=== PATIENT | male | born 1970 | race Caucasian/White ===

== ENCOUNTER 2019-01-06 14:23 | Emergency (ER) | payer OTHER, MEDICAID, SELFPAY ==
[2019-01-06 14:31] VITALS: BP 173/83; PULSE 102; RESP 27; TEMP 36.8; O2SAT 91
--- NOTE | 2019-01-06 14:57 | ED.SKABFB ---
HPI - Skin/Abscess/Foreign Bdy <TEOFILO Mills - Last Filed: 01/06/19 15:26> General Chief complaint: Skin/Abscess/Foreign Body Stated complaint: infection in left leg Time Seen by Provider: 01/06/19 14:27 Source: patient Mode of arrival: Ambulatory Limitations: no limitations History of Present Illness HPI narrative: This is a 48-year-old gentleman who has history of hypertension and heart failure, smoker, who presents to ED with left lower leg aches for about a week. Patient reports last couple of days the pain has increased with redness and warmth. Patient has history of cellulitis on the same area in the past and was hospitalized with IV antibiotic medication treatment in the past. Patient denies fever, chills, nausea or vomiting, calf pain, recent weight gain, worsening breathing trouble, or chest pain. Patient denies any open skin source on affected leg. Patient is tolerating p.o. intake well. Related Data Previous Rx's Medication Instructions Recorded cephalexin [Keflex] 500 mg PO Q6H 10 Days #40 cap 01/06/19 Allergies Allergy/AdvReac Type Severity Reaction Status Date / Time No Known Drug Allergies Allergy Verified 01/06/19 14:33 Review of Systems <TEOFILO Mills - Last Filed: 01/06/19 15:26> Review of Systems Narrative: General: Denies fever, chills, fatigue, malaise, sweats. HEENT: Denies sinus pain, ear pain, sore throat, difficulty swallowing, dizziness. Respiratory: Denies dyspnea, cough, wheezing, hemoptysis, sputum. Cardiovascular: Denies chest pain, palpitations, orthopnea, edema. Gastrointestinal: Denies nausea, vomiting, abdominal pain, diarrhea, constipation, melena. : Denies dysuria, frequency, incontinence, hematuria, urinary retention. Musculoskeletal: Denies weakness, joint pain or bony pain. Skin: See HPI Neurologic: Denies weakness, headache, numbness, change in speech, confusion, seizures, incoordination. Psychiatric: No concerning psychosocial issues. 12-point review of systems is negative except for those stated above. Patient History <TEOFILO Mills Last Filed: 01/06/19 15:26> Medical History (Updated 10/29/19 @ 15:01 by TEOFILO Mills) Cellulitis (Acute) Congestive heart failure (CHF) (Acute) Hypertension (Acute) Nonadherence to medication (Acute) Social History Smoking Status: Current some day smoker alcohol intake frequency: 0-2 drinks per day Substance Use Type: does not use Exam <TEOFILO Mills - Last Filed: 01/06/19 15:26> Narrative Exam Narrative: General appearance: well developed, well nourished, in no acute distress. Head: normocephalic, atraumatic, no scalp lesions, non-tender. Eye: pupil equal, round. EOMI. Nose: nares patent. Oral: mucosa moist. Neck/Thyroid: neck supple, full range of motion, no visible masses. Heart: no clubbing, no cyanosis, no edema. Lungs: Breathing even and unlabored. No stridor. No accessory muscles used. Chest: normal shape and expansion. Abdomen: non-obese, non-distended. Neurologic: alert and oriented. 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 Psych: good eye contact, normal affect. Initial Vital Signs Initial Vital Signs: Vital Signs Temperature 98.2 F 01/06/19 14:31 Pulse Rate 102 H 01/06/19 14:31 Respiratory Rate 27 H 01/06/19 14:31 Blood Pressure 173/83 H 01/06/19 14:31 Pulse Oximetry 91 01/06/19 14:31 Skin General: erythema (Left anterior lower extremity), warm and other (Mild swelling to anterior left lower leg) Lesions: lesion noted (Small folliculitis like lesion noted in the cellulitis area) <Ankur Mcdaniel DO - Last Filed: 01/06/19 15:46> Initial Vital Signs Initial Vital Signs: Vital Signs Temperature 98.2 F 01/06/19 14:31 Pulse Rate 102 H 01/06/19 14:31 Respiratory Rate 27 H 01/06/19 14:31 Blood Pressure 173/83 H 01/06/19 14:31 Pulse Oximetry 91 01/06/19 14:31 Scores <TEOFILO Mills - Last Filed: 01/06/19 15:26> GCS [place] coma scale eye opening: Spontaneous [place] coma scale verbal response: Orientated Beatriz coma scale motor response: Obey commands [place] coma scale total score: 15 Course <TEOFILO Mills - Last Filed: 01/06/19 15:26> Vital Signs Vital signs: Vital Signs - 8 hr 01/06/19 14:31 01/06/19 15:07 Temperature 98.2 F Pulse Rate 102 H 81 Respiratory Rate 27 H 18 Blood Pressure 173/83 H Pulse Oximetry 91 91 <Ankur Mcadniel DO - Last Filed: 01/06/19 15:46> Vital Signs Vital signs: Vital Signs - 8 hr 01/06/19 14:31 01/06/19 15:07 Temperature 98.2 F Pulse Rate 102 H 81 Respiratory Rate 27 H 18 Blood Pressure 173/83 H Pulse Oximetry 91 91 MDM - Skin/Abscess/Foreign Bdy <TEOFILO Mills - Last Filed: 01/06/19 15:26> Differential Diagnosis Differential diagnosis: Likely cellulitis and other (DVT) Medical Records Attestation: I reviewed the patient's medical records. MDM Narrative Medical decision making narrative: This is a 48-year-old gentleman who presents to ED with anterior left lower extremity discomfort for 1 week which got worse in last 2 days. Patient denies constitutional symptoms. Patient denies breathing difficulty or weight gain. Patient denies calf pain. Patient denies history of diabetes. Patient has history of cellulitis and states it feels the same at the same location. Patient states last time he developed fever with cellulitis and was and up getting admitted to the hospital with IV antibiotic medication. Patient states I'm not staying in the hospital, can't afford it. Physical exam is consistent with a cellulitis. Patient will be discharged to home with oral antibiotic medication for outpatient therapy. Strict return precautions discussed with the patient and advised to follow up with his primary care physician in 2-3 days for recheck. Patient verbalized understanding and agrees with the treatment plan. Discharge Plan Departure Patient Disposition: Home Clinical Impression: Cellulitis Qualifiers: Site of cellulitis: extremity Site of cellulitis of extremity: lower extremity Laterality: left Qualified Code(s): L03.116 - Cellulitis of left lower limb Discharge Date/Time: 01/06/19 15:18 Instructions: DI for Cellulitis -- Adult Activity Restrictions/Additional Instructions: You have been diagnosed with [cellulitis on your left lower leg her physical exam]. What to do: *Take your medications as directed. Please start Keflex as soon as possible for next 10 days. This medication has been transmitted to [facility]. You should be feeling improved within 1 or 2 day you start the medication. You can take [id number] Tylenol and or Motrin for discomfort or pain. Please use warm pack on affected site 4 to 6 times a day for 20-30 minutes. Please limit excessive walking. *Follow up with your primary care provider in 2-3 days, call for an appointment. Let them know you were seen in the ED and that we asked you to be seen in follow up. *Return to ED if you have any new, worsening, or concerning symptoms, such as [chest pain, breathing difficulty, fever, weakness, increasing redness/warmth/pain on your leg, significant weight gain or any acute concerns]. Prescriptions: New cephalexin [Keflex] 500 mg capsule 500 mg PO Q6H 10 Days Qty: 40 RF: 0 Referrals: Quan Cason MD [Non-Staff] - <Ankur Mcdaniel, - Last Filed: 01/06/19 15:46> Sign Out Provider Sign Out Attestation: Dr Mcdaniel Co-Sign Statement: I was available for consultation during this patient's emergency department visit. This chart is signed by myself for administrative purposes only. I did not have direct contact with this patient during this visit. They were seen independently by the APC.
[2019-01-06 15:07] VITALS: PULSE 81; RESP 18; O2SAT 91
== END 2019-01-06 15:18 | disposition home or self-care (01) ==
LOC: ED 15:19
PROVIDERS: Emergency Provider Nurse Practitioner Family
DX: L03.116 Cellulitis of left lower limb (principal)
CPT/HCPCS: 99282; 99283

== ENCOUNTER → 2019-03-05 12:21 | Outpatient (CLI) | payer OTHER, MEDICAID, SELFPAY ==
--- NOTE | 2019-03-05 12:40 | DI.US.S_ITS ---
PROCEDURE: US PERIPH VENOUS LOW EXTREM LT INDICATIONS: LEFT LOWER CALF PHLEBITIS TECHNIQUE: Real-time imaging, as well as color and pulse Doppler interrogation, were performed of the lower extremity deep veins from the inguinal ligament to the popliteal fossa. COMPARISON: None. FINDINGS: The common femoral, femoral and popliteal veins are normally compressible, and free of intraluminal thrombus. Color and pulse Doppler demonstrate normal phasic intraluminal flow. There is normal augmentation response to distal compression maneuver. IMPRESSION: No DVT found. Dictated by: Rudy Tapia M.D. on 03/05/2019 at 12:53 Approved by: Rudy Tapia M.D. on 03/05/2019 at 12:53
== END ==
PROVIDERS: Visit Provider Physician Assistant
DX: R22.42 Localized swelling, mass and lump, left lower limb (principal)
CPT/HCPCS: 93971

== ENCOUNTER 2019-06-27 10:14 | Emergency (ER) | payer OTHER, MEDICAID, SELFPAY ==
[2019-06-27 10:16] VITALS: BP 139/103; PULSE 66; RESP 18; TEMP 36.6; O2SAT 96; BMI 54.5
--- NOTE | 2019-06-27 10:18 | ED_ITS ---
HPI - Skin/Abscess/Foreign Bdy General Chief complaint: Skin/Abscess/Foreign Body Stated complaint: poss shingles Time Seen by Provider: 06/27/19 10:18 Source: patient Mode of arrival: Ambulatory Limitations: no limitations History of Present Illness HPI narrative: This is a 49-year-old male comes emergency department with a and a half of right flank and abdominal pain and a week of rash on his right abdominal region. Patient states that he has not had fevers. He states that the area started out painful in the rash developed and he has continued to have significant discomfort. He denies any pain elsewhere. Patient states that he has not had any issues with breathing, no chest pain. No urinary issues, no issues with bowel movements, no nausea or vomiting. He does have known congestive heart failure but states he stopped his medications a month ago. I did certified personal finance counselor him to restart his medications. He states he stopped because he does not like taking pills and having to get up multiple times to urinate. Patient did have chickenpox as a child. He has not had prior episodes of shingles in the past. He denies any allergies to medications. Related Data Previous Rx's Medication Instructions Recorded hydrocodone-acetaminophen [Piedmont] 1 tab PO Q6H PRN #20 tab 06/27/19 lidocaine 1 applictn TOP TID PRN #28.35 gram 06/27/19 valacyclovir [Valtrex] 1,000 mg PO TID 7 Days #21 tab 06/27/19 Allergies Allergy/AdvReac Type Severity Reaction Status Date / Time No Known Drug Allergies Allergy Verified 06/27/19 10:23 Review of Systems Review of Systems ROS Unobtainable: All systems reviewed & are unremarkable except as noted in HPI and below Patient History Medical History Cellulitis (Acute) Congestive heart failure (CHF) (Acute) Hypertension (Acute) Nonadherence to medication (Acute) Social History Smoking Status: Current some day smoker Smoking Status: Current some day smoker alcohol intake frequency: 0-2 drinks per day Substance Use Type: does not use Exam Narrative Exam Narrative: GENERAL: Alert and oriented x three, morbidly obese male in mild distress. HEENT: Head normocephalic, atraumatic, EOMI, pupils reactive, face symmetric, moist mucous membranes NECK: Supple, full range of motion CARDIOVASCULAR: Regular rate and rhythm without murmurs, rubs or gallops. RESPIRATORY: Breath sounds equal bilaterally, no wheezes rales or rhonchi. ABDOMEN: Soft, nontender. Normoactive bowel sounds all 4 quadrants. No guarding or rebound, rigidity, no mass : No CVA tenderness EXTREMITIES: Normal range of motion, no clubbing or edema. Neurovascularly intact NEUROLOGICAL: Cranial nerves II through XII grossly intact. Moving all extremities SKIN: Warm, dry, no petechiae, patient has erythematous vesicular rash running from the posterior back just at the midline towards the right anterior abdomen just to the midline. It does not cross the midline. Does appear to be consistent with shingles in the T10 dermatome. Initial Vital Signs Initial Vital Signs: Vital Signs Temperature 97.9 F 06/27/19 10:16 Pulse Rate 66 06/27/19 10:16 Respiratory Rate 18 06/27/19 10:16 Blood Pressure 139/103 H 06/27/19 10:16 Pulse Oximetry 96 06/27/19 10:16 Course Vital Signs Vital signs: Vital Signs - 8 hr 06/27/19 10:16 Temperature 97.9 F Pulse Rate 66 Respiratory Rate 18 Blood Pressure 139/103 H Pulse Oximetry 96 MDM - Skin/Abscess/Foreign Bdy MDM Narrative Medical decision making narrative: Patient does have a rash consistent with shingles. He was started on Valtrex, given a prescription for lidocaine cream as well as hydrocodone. Patient and I discussed voiding contact with infants, women and immune compromised individuals. We discussed return precau tions and also restarting his home medications. He states he does still have them. Patient was interested in setting up primary care as his insurance has changed and his old physician Dr. Cason is no longer available. He was given referral to the Health purchasing coordinator number. Discharge Plan Departure Patient Disposition: Home Clinical Impression: Shingles Qualifiers: Herpes zoster complications: without complications Qualified Code(s): B02.9 - Zoster without complications Discharge Date/Time: 06/27/19 10:51 Instructions: DI for Shingles Activity Restrictions/Additional Instructions: Follow-up with primary care, if you do not have a primary care physician you may call [phone] to help you establish a physician. Take felt likely 1 tablet 3 times daily x1 week for your shingles. You may use lidocaine cream topically over the rash 3 times daily to help with pain. If this is not adequate you may take Piedmont 1 tablet every 6 hours as needed. This medication will constipate use of take a stool softener while taking it. Can also make you quite sleepy so do not drive, perform hazardous activities or make any major decisions while taking it. I do recommend that you restart your home medications for congestive heart failure. Return to the ER for fevers, rash that is continuing to spread, rapidly worsening pain, lightheadedness, passing out, new chest pain or shortness of breath, persistent vomiting, new weakness numbness or other new or concerning symptoms. Prescriptions: New valacyclovir [Valtrex] 1 gram tablet 1,000 mg PO TID 7 Days Qty: 21 RF: 0 hydrocodone-acetaminophen [Piedmont] 5-325 mg tablet 1 tab PO Q6H PRN (Reason: pain) Qty: 20 RF: 0 lidocaine 3 % cream 1 applictn TOP TID PRN (Reason: pain) Qty: 28.35 RF: 0
--- NOTE | 2019-06-27 10:27 | PC.NURSE ---
no new order.
== END 2019-06-27 10:51 | disposition home or self-care (01) ==
PROVIDERS: Emergency Provider Emergency Medicine
DX: B02.9 Zoster without complications (principal)
CPT/HCPCS: 99281

== ENCOUNTER 2020-04-07 15:58 | Emergency (ER) | payer OTHER, MEDICAID, SELFPAY ==
[2020-04-07] VITALS (15 sets, daily range): BP systolic 100–135; BP diastolic 54–69; PULSE 55–61; RESP 16–29; TEMP 37.1; O2SAT 93–96; BMI 55.0
--- NOTE | 2020-04-07 16:27 | DI.RAD.S_ITS ---
PROCEDURE: XR CHEST 1V INDICATIONS: chest pain TECHNIQUE: One view of the chest was acquired. COMPARISON: [facility], CT, CT ANGIO CHEST PE, 08/14/2016, 19:48. [facility], CR, XR CHEST 2VW, 08/14/2016, 18:54. FINDINGS: Surgical changes and devices: None. Lungs and pleura: Mild streaky opacity at the left lung base. No pleural effusions or pneumothorax. Mediastinum: Mediastinal contours appear normal. Heart size appears prominent. Bones and chest wall: No suspicious bony lesions. Overlying soft tissues appear unremarkable. IMPRESSION: Mild streaky opacity at the left lung base. Favor atelectasis over pneumonia or aspiration. Low lung volumes. Heart size appears prominent. Dictated by: Carlitos Bey M.D. on 04/07/2020 at 17:12 Approved by: Carlitos Bey M.D. on 04/07/2020 at 17:13
--- NOTE | 2020-04-07 16:29 | PC.NURSE ---
Pt took 2 full strength aspirin at home before arrival
[2020-04-07 16:45] LABS: Alanine Aminotransferase 22 IU/L (<50); Albumin 4.6 g/dL (3.5-5.0); Albumin Globulin Ratio 1.2 (1.0-2.8); Alkaline Phosphatase 99 U/L (38-126); Aspartate Aminotransferase 25 IU/L (17-59); BUN Creatinine Ratio 27.8 (6-22); Bilirubin Total 0.4 mg/dL (0.2-1.3); Blood Urea Nitrogen 25 mg/dL (9-20); Calcium 8.9 mg/dL (8.4-10.2); Carbon Dioxide 28 mmol/L (22-32); Chloride 103 mmol/L (98-107); Creatine Kinase 101 U/L (55-170); Estimated Glomerular Filt Rate > 60.0 mL/min (>60); Globulin 3.8 g/dL (1.7-4.1); Glucose 87 mg/dL (70-100); HEMOLYSIS < 15 (0-50); Lipase 42 U/L (23-300); Potassium 3.8 mmol/L (3.4-5.1); Sodium 138 mmol/L (137-145); Total Protein 8.4 g/dL (6.3-8.2)
[2020-04-07 16:46] LABS: Add Manual Diff / Slide Review NO; Basophils Absolute Auto 100 /uL (0-100); Basophils Percent Auto 0.6 % (0-2); Eosinophils Absolute Auto 200 /uL (0-450); Eosinophils Percent Auto 1.8 % (2-4); Hematocrit 45.4 % (41-53); Hemoglobin 14.7 g/dL (13.5-17.5); Lymphocytes Absolute Auto 2000 /uL (1100-4500); Mean Corpuscular HGB Conc 32.4 % (30-36); Mean Corpuscular Hemoglobin 28.1 PG (26-34); Mean Corpuscular Volume 86.6 fL (80-100); Monocytes Absolute Auto 700 /uL (0-900); Monocytes Percent Auto 5.6 % (3-14); Neutrophils Absolute Auto 9400 /uL (1500-7000); Platelet Count 286 X10^3/uL (150-400); Red Blood Cell Count 5.25 X10^6/uL (4.5-5.9); Red Cell Distribution Width 15.2 % (11.6-14.8); White Blood Cell Count 12.4 X10^3/uL (4.5-11.0)
[2020-04-07 16:56] LABS: Troponin I < 0.012 ng/mL (0.01-0.034)
[2020-04-07 17:00] LABS: CKMB % Relative Index 1.1 % (1.5-5.0); Creatine Kinase MB 1.16 ng/mL (<2.37)
--- NOTE | 2020-04-07 18:06 | ED_ITS ---
HPI - Chest Pain General Chief Complaint: Chest Pain Stated Complaint: chest pain, dizzy Time Seen by Provider: 04/07/20 18:03 Source: patient Mode of arrival: Ambulatory Limitations: no limitations History of Present Illness HPI narrative: 50M smoker with history of HTN presents with the chief complaint of brief episodes of L sided chest pain since 0630 this morning. He denies any obvious provocation or palliation. He denies any radiation. He states his pain is achy in quality and 3/10 at maximum intensity and currently he is pain free. He denies associated symptoms such as dizziness, weakness, diaphoresis, nor nausea or vomiting. He denies any exertional worsening of his symptoms. He denies fever, chills or cough. He denies any recent change in ability to tolerate exertion. He denies recent travel, injury, or history of clot. He denies any positional affect on his symptoms. MD complaint: chest pain Onset (ago): hour(s) Duration: intermittent Onset: during rest Pain location: left chest Severity: mild Severity scale (1-10): 3 Quality: aching Relieving factors: nothing Exacerbating factors: nothing Treatments prior to arrival chest pain: none Related Data Home Medications Medication Instructions Recorded Confirmed albuterol sulfate 1 puff INHALATION PRN PRN 04/07/20 04/07/20 aspirin 81 mg PO DAILY 04/07/20 04/07/20 bupropion HCl (smoking deter) 150 mg PO BID 04/07/20 04/07/20 fexofenadine 180 mg PO DAILY 04/07/20 04/07/20 furosemide 80 mg PO DAILY 04/07/20 04/07/20 metoprolol tartrate 25 mg PO BID 04/07/20 04/07/20 nifedipine 30 mg PO DAILY 04/07/20 04/07/20 potassium chloride 20 meq PO DAILY 04/07/20 04/07/20 valacyclovir 1,000 mg PO TID 04/07/20 04/07/20 Allergies Allergy/AdvReac Type Severity Reaction Status Date / Time No Known Drug Allergies Allergy Verified 04/07/20 16:22 Review of Systems Constitutional Constitutional: Denies chills, Denies fatigue, Denies fever(s), Denies frequent falls, Denies lethargy and Denies weakness Eyes Eyes: Denies change in vision, Denies eye discharge, Denies irritation and Denies loss of vision ENT Ears, Nose, Mouth, and Throat: Denies change in voice, Denies dizziness, Denies neck pain, Denies sore throat and Denies throat swelling Cardiovascular Cardiovascular: Reports chest pain, Denies irregular heart rhythm, Denies lightheadedness, Denies palpitations, Denies dyspnea, Denies dyspnea on exertion and Denies orthopnea Respiratory Respiratory: Denies cough, Denies dyspnea, Denies dyspnea on exertion and Denies wheezing Gastrointestinal Gastrointestinal: Denies abdominal pain, Denies change in bowel habits, Denies diarrhea, Denies nausea and Denies vomiting Musculoskeletal Musculoskeletal: Denies neck pain and Denies numbness Integumentary/Breasts Skin/Breast: Denies pruritus, Denies erythema, Denies rash and Denies wounds Neurologic Neurologic: Denies behavioral changes, Denies confusion, Denies dizziness, Denies frequent falls, Denies loss of vision, Denies numbness and Denies weakness Psychiatric Psychiatric: Denies anxiety, Denies behavioral changes, Denies confusion, Denies depression, Denies homicidal ideation and Denies suicidal ideation Endocrine Endocrine: Denies fatigue, Denies flushing and Denies palpitations Hematologic/Lymphatic Hematologic/Lymphatic: Denies easy bruising Allergic/Immunologic Allergic/Immunologic: Denies urticaria, Denies throat swelling and Denies wheezing Patient History Medical History Cellulitis Congestive heart failure (CHF) Hypertension Nonadherence to medication Social History Smoking Status: Current every day smoker Smoking Status: Current every day smoker alcohol intake frequency: 0-2 drinks per day Substance Use Type: marijuana Exam Narrative Exam Narrative: GENERAL: [50] year old patient appears stated age. Well- nourished, well-developed patient, in no obvious distress. BMI 55, Ht. 182cm, 184kg. Resting comfortably HEAD: Atraumatic. Normocephalic. EYES: Pupils equal round and reactive. Extraocular motions intact. No scleral icterus. No injection or drainage. ENT: Nose without bleeding, purulent drainage. Throat without erythema, tonsillar hypertrophy or exudate. Airway patent. NECK: Trachea midline. Non tender CARDIOVASCULAR: Regular rate and rhythm without murmurs, gallops, or rubs. No reproducible pain. RESPIRATORY: Clear to auscultation. Breath sounds equal bilaterally. No wheezes, rales, or rhonchi. No pain with inspiration or movement of torso. GASTROINTESTINAL: Abdomen soft, non-tender, nondistended. EXTREMITIES: No edema or joint tenderness. BACK: Nontender without deformity or crepitance. No flank tenderness. NEURO: AOx3. SKIN: No rash or erythema of visible areas Initial Vital Signs Initial Vital Signs: Vital Signs Temperature 98.8 F 04/07/20 16:00 Pulse Rate 60 04/07/20 16:00 Respiratory Rate 22 04/07/20 16:00 Blood Pressure 133/63 04/07/20 16:00 Pulse Oximetry 95 04/07/20 16:00 Scores HEART Score Heart Score history: Slightly Suspicious Heart Score EKG: Normal Heart Score Age: 45-64 years old Heart Score risk factors: 1-2 risk factors Heart Score troponin: < or = to normal limit Heart Score Total: 2 Course Orders Ordered: ED Orders 04/07/20 18:47 Troponin I Stat Vital Signs Vital signs: Vital Signs - 8 hr 04/07/20 18:00 04/07/20 18:30 04/07/20 18:31 Pulse Rate 58 L 61 60 Respiratory Rate 16 22 Blood Pressure 123/67 130/69 Pulse Oximetry 93 95 95 04/07/20 19:00 04/07/20 19:30 04/07/20 19:31 Pulse Rate 58 L 59 L 59 L Respiratory Rate 24 25 H 29 H Blood Pressure 128/66 135/62 Pulse Oximetry 94 96 96 MDM - Chest Pain Lab Data Result diagrams: 04/07/20 16:15 04/07/20 16:15 Labs: Lab Results 04/07/20 04/07/20 04/07/20 Range/Units 16:15 16:15 18:47 WBC 12.4 H (4.5-11.0) X10^3/uL RBC 5.25 (4.5-5.9) X10^6/uL Hgb 14.7 (13.5-17.5) g/dL Hct 45.4 (41-53) % MCV 86.6 (80-100) fL MCH 28.1 (26-34) PG MCHC 32.4 (30-36) % RDW 15.2 H (11.6-14.8) % Plt Count 286 (150-400) X10^3/uL Neut % (Auto) 76.0 H (50-75) % Lymph % (Auto) 16.0 L (25-40) % [place] % (Auto) 5.6 (3-14) % Eos % (Auto) 1.8 L (2-4) % Baso % (Auto) 0.6 (0-2) % Neut # (Auto) 9400 H (4264-0172) /uL Lymph # (Auto) 2000 (6302-1037) /uL [place] # (Auto) 700 (0-900) /uL Eos # (Auto) 200 (0-450) /uL Baso # (Auto) 100 (0-100) /uL Sodium 138 (137-145) mmol/L Potassium 3.8 (3.4-5.1) mmol/L Chloride 103 (98-107) mmol/L Carbon Dioxide 28 (22-32) mmol/L BUN 25 H (9-20) mg/dL Creatinine 0.90 (0.66-1.25) mg/dL Estimated GFR > 60.0 (>60) mL/min BUN/Creatinine Ratio 27.8 H (6-22) Glucose 87 (70-100) mg/dL Calcium 8.9 (8.4-10.2) mg/dL Total Bilirubin 0.4 (0.2-1.3) mg/dL AST 25 (17-59) IU/L ALT 22 (<50) IU/L Alkaline Phosphatase 99 (38-126) U/L Total Creatine Kinase 101 (55-170) U/L CK-MB (CK-2) 1.16 (<2.37) ng/mL CK-MB (CK-2) Rel Index 1.1 L (1.5-5.0) % Troponin I < 0.012 < 0.012 (0.01-0.034) ng/mL Total Protein 8.4 H (6.3-8.2) g/dL Albumin 4.6 (3.5-5.0) g/dL Globulin 3.8 (1.7-4.1) g/dL Albumin/Globulin Ratio 1.2 (1.0-2.8) Lipase 42 (23-300) U/L Imaging Data Chest x-ray: Radiologist's Impression: Carlitos Patel 50 M 1970 [place] [id number] [place] [id number] ReportSigned Patient: Carlitos Patel GMR#: [id number]: [id number]:[id number]/Sex: 50 / MDate of Service: 04/07/20Loc: EDAccession Number: [id number] Procedure: XR chest 1V Ordering Provider: Jannet Vora D.O. PROCEDURE: XR CHEST 1V INDICATIONS: chest pain TECHNIQUE: One view of the chest was acquired. COMPARISON: [facility], CT, CT ANGIO CHEST PE, 08/14/2016, 19:48. [facility], CR, XR CHEST 2VW, 08/14/2016, 18:54. FINDINGS: Surgical changes and devices: None. Lungs and pleura: Mild streaky opacity at the left lung base. No pleural effusions or pneumothorax. Mediastinum: Mediastinal contours appear normal. Heart size appears prominent. Bones and chest wall: No suspicious bony lesions. Overlying soft tissues appear unremarkable. IMPRESSION: Mild streaky opacity at the left lung base. Favor atelectasis over pneumonia or aspiration. Low lung volumes. Heart size appears prominent. Dictated by: Carlitos Bey M.D. on 04/07/2020 at 17:12 Approved by: Carlitos Bey M.D. on 04/07/2020 at 17:13 ECG Data Attestation: I personally reviewed and interpreted this ECG as follows: Interpretation: EKG is sinus Choco rate [57 ] and free of any signs of ischemia or ectopy. No ST segmental elevation or depression. No T wave inversions. MA 200, QRS 110. QTC 414 EKG#2 no notable change MDM Narrative Medical decision making narrative: Multiple causes of chest pain considered including ME, PE, pneumothorax, pneumonia, aortic dissection, and pleurisy. Patient reports no radiation, no diaphoresis, no provocation with exertion, and no vomiting Patient asymptomatic over duration of stay. Multiple EKGs without occlusive/ischemic abnormality. PE thought unlikely given such brief symptoms. No pleuritic component. No SOB, cough. No tachycardia or tachypnea. Findings and discharge diagnosis discussed with patient/family followed by verbalization of understanding Return precautions discussed with patient/family whom verbalize understanding. Discharge Plan Departure Patient Disposition: Home Clinical Impression: Atypical chest pain Instructions: DI for Atypical Chest Pain Activity Restrictions/Additional Instructions: *You have been diagnosed with [chest pain. Labs, EKGs, and imaging her very reassuring. No evidence of heart attack, blood clot or other severe diagnosis] *What to do: * continue to take medications as directed *Follow up with your primary care provider in 2-3 days, call for an appointment. Let them know you were seen in the Emergency Department and that we ask that you be seen in follow up *Return to ER if you should have any new, worsening or concerning symptoms, such as [increasing pain, shortness of breath, vomiting, or other bothersome symptoms ] Prescriptions: No Action nifedipine 30 mg tablet extended release 30 mg PO DAILY RF: 0 fexofenadine 180 mg tablet 180 mg PO DAILY RF: 0 valacyclovir 500 mg Tablet 1,000 mg PO TID RF: 0 furosemide 80 mg tablet 80 mg PO DAILY RF: 0 aspirin 81 mg Tablet 81 mg PO DAILY RF: 0 albuterol sulfate 90 mcg/actuation HFA aerosol inhaler 1 puff INHALATION PRN PRN (Reason: Adequate Ventilation) RF: 0 metoprolol tartrate 25 mg Tablet 25 mg PO BID RF: 0 potassium chloride 20 mEq Tablet Extended Release 20 meq PO DAILY RF: 0 bupropion HCl (smoking deter) 150 mg tablet extended release 12 hr 150 mg PO BID RF: 0 Referrals: [facility] [Outside]
[2020-04-07 19:18] LABS: Troponin I < 0.012 ng/mL (0.01-0.034)
== END 2020-04-07 19:35 | disposition home or self-care (01) ==
PROVIDERS: Emergency Medicine; Emergency Provider Emergency Medicine
DX: R07.89 Other chest pain (principal); I10 Essential (primary) hypertension; Z79.82 Long term (current) use of aspirin; I50.9 Heart failure, unspecified
CPT/HCPCS: 36415; 71045; 80053; 82550; 82553; 83690; 84484; 85025; 93005; 99283; 99284

== ENCOUNTER 2022-03-07 11:56 | Emergency (ER) | payer OTHER, MEDICAID, SELFPAY ==
[2022-03-07 12:03] VITALS: BP 186/83; PULSE 78; RESP 17; TEMP 36.1; O2SAT 92; BMI 56.2
--- NOTE | 2022-03-07 15:52 | ED_ITS ---
HPI - Ear Problem <Jennie Shipman, [facility] - Last Filed: 03/07/22 15:59> General Chief complaint: Ear Stated complaint: Ear swelling, Hearing loss Time Seen by Provider: 03/07/22 15:13 Source: patient Mode of arrival: Ambulatory History of Present Illness HPI Narrative: This is a 52-year-old gentleman who presents to the emergency department with onset of left ear canal swelling and pain for the last few days. He denies history of this in the past, states that he tried to clean his ear with a Q-tip and some dark brown which appeared like blood discharge came out. He states that he is had symptoms decreased hearing intermittently and is concerned about a foreign body or a bug or something in his ear. Denies fever or chills, denies history of diabetes, denies any tenderness behind his ear over the bone, denies rash or any other symptoms. He states that his ear hurts deep inside as well as through the canal. Denies any other discharge coming from his ear. Related Data Home Medications Medication Instructions Recorded Confirmed albuterol sulfate 90 mcg/actuation 1 puff inhalation PRN PRN Adequate 04/07/20 04/07/20 aerosol inhaler Ventilation aspirin 81 mg tablet 81 mg PO DAILY 04/07/20 04/07/20 bupropion HCl (smoking deter) 150 150 mg PO BID 04/07/20 04/07/20 mg tablet,12 hr sustained-release(smoking deterrent) fexofenadine 180 mg tablet 180 mg PO DAILY 04/07/20 04/07/20 furosemide 80 mg tablet 80 mg PO DAILY 04/07/20 04/07/20 metoprolol tartrate 25 mg tablet 25 mg PO BID 04/07/20 04/07/20 nifedipine 30 mg tablet,extended 30 mg PO DAILY 04/07/20 04/07/20 release potassium chloride 20 mEq 20 meq PO DAILY 04/07/20 04/07/20 tablet,extended release valacyclovir 500 mg tablet 1,000 mg PO TID 04/07/20 04/07/20 Previous Rx's Medication Instructions Recorded amoxicillin 875 mg-potassium 1 tab PO BID 10 days #20 tabs 03/07/22 clavulanate 125 mg tablet ofloxacin 0.3 % ear drops 10 drp EAR-LEFT DAILY 7 days #10 mL 03/07/22 Allergies Allergy/AdvReac Type Severity Reaction Status Date / Time No Known Drug Allergies Allergy Verified 03/07/22 12:03 Review of Systems <TEOFILO Sellers - Last Filed: 03/07/22 15:59> Review of Systems ROS Unobtainable: All systems reviewed & are unremarkable except as noted in HPI and below Patient History <TEOFILO Sellers - Last Filed: 03/07/22 15:59> Medical History Cellulitis Congestive heart failure (CHF) Hypertension Nonadherence to medication Social History Smoking Status: Current every day smoker Smoking Status: Current every day smoker alcohol intake frequency: holidays/special occasions only Substance Use Type: does not use Exam <TEOFILO Sellers - Last Filed: 03/07/22 15:59> Narrative Exam Narrative: Reviewed vitals signs and nursing notes. General: cooperative, comfortable, in no acute distress, well groomed HEENT: symmetrical facial expressions, moist mucous membranes, left ear canal is edematous, erythematous with flaking, sensitive on exam, needed to use the smaller otoscope cover to fit into his ear canal but still was unable to fully visualize his TM. I did not see evidence of rupture or dependent drainage. No mastoid tenderness, no anterior cervical lymphadenopathy, right ear canal without these symptoms. Skin: brisk capillary refill, without pallor or erythema Neuro: normal speech and cognition, A&O x3, ambulatory, clear speech Psych: mental status is grossly normal, congruent mood, normal affect, pleasant and cooperative Initial Vital Signs Initial Vital Signs: Vital Signs Temperature 97.0 F L 03/07/22 12:03 Pulse Rate 78 03/07/22 12:03 Respiratory Rate 17 03/07/22 12:03 Blood Pressure 186/83 H 03/07/22 12:03 Pulse Oximetry 92 03/07/22 12:03 Oxygen Delivery Method 03/07/22 12:03 <Lanie Prieto DO - Last Filed: 03/10/22 07:50> Initial Vital Signs Initial Vital Signs: Vital Signs Temperature 97.0 F L 03/07/22 12:03 Pulse Rate 78 03/07/22 12:03 Respiratory Rate 17 03/07/22 12:03 Blood Pressure 186/83 H 03/07/22 12:03 Pulse Oximetry 92 03/07/22 12:03 Oxygen Delivery Method 03/07/22 12:03 Course <TEOFILO Sellers - Last Filed: 03/07/22 15:59> Vital Signs Vital signs: Vital Signs - 8 hr 03/07/22 12:03 Temperature 97.0 F L Pulse Rate 78 Respiratory Rate 17 Blood Pressure 186/83 H Pulse Oximetry 92 Oxygen Delivery Method Room Air <Lanie Prieto DO - Last Filed: 03/10/22 07:50> Vital Signs Vital signs: Vital Signs - 8 hr 03/07/22 12:03 Temperature 97.0 F L Pulse Rate 78 Respiratory Rate 17 Blood Pressure 186/83 H Pulse Oximetry 92 Oxygen Delivery Method Room Air Medical Decision Making <TEOFILO Sellers - Last Filed: 03/07/22 15:59> MDM Narrative Medical decision making narrative: This is a 52-year-old gentleman presents to the emergency department with left ear pain for the last 2-3 days, his canal he states is tender, with flaking and he had dark brown discharge which he thought was blood on it this morning when he tried to clean his ear. On exam it appears that patient has otitis externa, flaking and edema with erythema present in the canal without evidence of ruptured TM. I was not able to fully visualize the TM even with the smallest otoscope cover. I recommend that he follow-up with ear nose and throat, he was given ofloxacin drops as well as covered for otitis media with Augmentin because it was visibly erythematous with my otoscope but I could not differentiate whether there was suppuration or bulging. Differential includes bullous myringitis, foreign body, otitis media, otitis externa, malignant otitis externa and chronic otitis externa. Patient is appropriate and amenable to discharge home. Vital signs are stable on repeat examination is unremarkable. Patient has been informed of results. Patient has been given strict return to ER precautions for any new or worsening symptoms. Patient understands to follow up closely with outpatient providers as instructed. Patient understands plan and agrees to discharge home. All questions and concerns answered at this time. Discharge Plan Departure Patient Disposition: Home Clinical Impression: Otitis externa Qualifiers: Otitis externa type: unspecified type Chronicity: acute Laterality: left Qualified Code(s): H60.502 - Unspecified acute noninfective otitis externa, left ear Instructions: Middle Ear Infection, DI for Otitis Externa Activity Restrictions/Additional Instructions: *You have been diagnosed with otitis externa which is treated with ear drops for at least 7 days. Please apply 10 drops to your left ear, may use a cotton ball to help keep in your ear after application. Please call and schedule an appointment for follow-up with ear nose and throat. Unfortunately the [place] [facility] is closed for the holiday. Please use Dr. Gracia from [facility] office ENT for follow-up. The antibiotics I have prescribed free will treat a inner ear infection but your swelling was so severe in your canal that it was difficult to see beyond that. These ear drops should help, take Tylenol and ibuprofen as tolerated. Please return if this gets worse. Was a pleasure to meet you. *What to do: *Please continue to take your regular medications as directed. [x ] New medication prescriptions sent to your pharmacy: [[facility] ] [ ] New medication written as a paper prescription [ ] No new medications given Today your blood pressure was elevated, I see that you have some medications for blood pressure, please follow-up with your primary care provider about your blood pressure and ensure that it is being treated fully. *Please follow up with your primary care provider in 2-3 days, call for an appointment. Let them know you were seen in the Emergency Department and that we asked that you be seen for follow-up. We will electronically transmit a record of today's note if your PCP is in our system *If you do not have a primary care provider please contact [phone] to establish care with one of the [facility] primary care providers. *Return to Emergency Department if you should have any new, worsening, or concerning symptoms, such as [fever greater than 101F, chills, worsening pain, persistent vomiting or other bothersome symptoms]. Prescriptions: New ofloxacin 0.3 % drops 10 drp EAR-LEFT DAILY 7 Days Qty: 10 0RF amoxicillin-pot clavulanate 875-125 mg tablet 1 tab PO BID 10 Days Qty: 20 0RF No Action nifedipine 30 mg tablet extended release 30 mg PO DAILY fexofenadine 180 mg tablet 180 mg PO DAILY valacyclovir 500 mg Tablet 1,000 mg PO TID furosemide 80 mg tablet 80 mg PO DAILY aspirin 81 mg Tablet 81 mg PO DAILY albuterol sulfate 90 mcg/actuation HFA aerosol inhaler 1 puff INHALATION PRN PRN (Reason: Adequate Ventilation) Label Comments: INHALE 2 PUFFS BY MOUTH INTO THE LUNGS EVERY 6 HOURS NEEDED FOR WHEEZING metoprolol tartrate 25 mg Tablet 25 mg PO BID potassium chloride 20 mEq Tablet Extended Release 20 meq PO DAILY bupropion HCl (smoking deter) 150 mg tablet extended release 12 hr 150 mg PO BID Referrals: Cas Gracia MD [Physician] - (The [facility] [facility] is out of the office for the holiday, please follow-up urgently as needed for worsening pain, the office he is working at is it division but this phone number should work) Stand Alone Forms: Patient Portal/API <Lanie Prieto DO - Last Filed: 03/10/22 07:50> Cosign ED Attending Letyature Attestation: I was immediately available in the department for consultation. Documentation has been reviewed. I agree with assessment and plan.
== END 2022-03-07 16:00 | disposition home or self-care (01) ==
PROVIDERS: Emergency Provider Nurse Practitioner Critical Care Medicine
DX: H60.502 Unspecified acute noninfective otitis externa, left ear (principal)
CPT/HCPCS: 99281

== ENCOUNTER 2022-04-03 15:58 | Emergency (ER) | payer OTHER, MEDICAID, SELFPAY ==
[2022-04-03] VITALS (13 sets, daily range): BP systolic 129–199; BP diastolic 65–88; PULSE 63–79; RESP 18; TEMP 36.6; O2SAT 91–98; BMI 56.2
[2022-04-03 16:33] LABS: Appearance Urine UA SL CLOUDY; Bilirubin Urine UA NEGATIVE (NEGATIVE); Color Urine UA YELLOW; Glucose Urine UA NEGATIVE (Negative); Ketones Urine UA TRACE (NEGATIVE); Leukocyte Esterase Urine UA NEGATIVE (NEGATIVE); Nitrite Urine UA NEGATIVE (Negative); Occult Blood Urine UA 3+ (Negative); Protein Urine UA 1+ (Negative)
[2022-04-03 16:41] LABS: Bacteria Urine Occasional (0-1); Culture Indicated Urine Cult Not Indicated; RBC Urine 30-100/HPF (0-5/HPF); Squamous Epithelial Cell Urine 1-5 /HPF (0-5/HPF); Transitional Epi Cells Urine 0-1/HPF (0-5/HPF); WBC Urine 1-5/HPF (0-5/HPF)
[2022-04-03 16:56] LABS: COVID19 -Nasal RAPID Negative (Negative)
[2022-04-03 17:21] LABS: Add Manual Diff / Slide Review NO; Basophils Absolute Auto 100 /uL (0-100); Basophils Percent Auto 0.9 % (0-2); Eosinophils Absolute Auto 100 /uL (0-450); Eosinophils Percent Auto 1.9 % (2-4); Hematocrit 47.9 % (41-53); Hemoglobin 15.4 g/dL (13.5-17.5); Lymphocytes Absolute Auto 1300 /uL (1100-4500); Lymphocytes Percent Auto 17.1 % (25-40); Mean Corpuscular HGB Conc 32.1 % (30-36); Mean Corpuscular Volume 87.2 fL (80-100); Monocytes Absolute Auto 600 /uL (0-900); Monocytes Percent Auto 8.4 % (3-14); Neutrophils Absolute Auto 5300 /uL (1500-7000); Neutrophils Percent Auto 71.7 % (50-75); Platelet Count 183 X10^3/uL (150-400); Red Cell Distribution Width 15.4 % (11.6-14.8); White Blood Cell Count 7.3 X10^3/uL (4.5-11.0)
[2022-04-03 17:33] LABS: Alanine Aminotransferase 22 IU/L (<50); Alkaline Phosphatase 94 U/L (38-126); Aspartate Aminotransferase 19 IU/L (17-59); BUN Creatinine Ratio 20.6 (6-22); Bilirubin Total 0.4 mg/dL (0.2-1.3); Blood Urea Nitrogen 14 mg/dL (9-20); Calcium 8.5 mg/dL (8.4-10.2); Carbon Dioxide 37 mmol/L (22-32); Chloride 98 mmol/L (98-107); Estimated Glomerular Filt Rate > 60 mL/min (>60); Globulin 3.9 g/dL (1.7-4.1); Glucose 87 mg/dL (70-100); HEMOLYSIS < 15 (0-50); Lipase 29 U/L (23-300); Sodium 141 mmol/L (137-145); Total Protein 7.9 g/dL (6.3-8.2)
--- NOTE | 2022-04-03 18:46 | DI.CT.S_ITS ---
PROCEDURE: CT KIDNEY URETER BLADDER (KUB) INDICATIONS: r/o kidney stone TECHNIQUE: Axial sections were acquired from the lung bases to the pubic symphysis. Coronal and sagittal reformats were performed. For radiation dose reduction, the following was used: automated exposure control, adjustment of mA and/or kV according to patient size. COMPARISON: CT, CT ABD PELVIS W CON, 08/14/2016, 19:48. FINDINGS: Image quality: Excellent. Lung bases: Partially visualized left basilar opacities. Heart: No significant findings. URINARY: Right Kidney: There is a hypertrophied appearance of the right kidney appearing more anterior in comparison to the left. No stones. No obstruction. Right Ureter: No hydroureter. Left Kidney: No stones or hydronephrosis. Left Ureter: No hydroureter. Bladder: Normal wall thickness. No stones. ABDOMEN: Liver: Liver is enlarged measuring 25.2 cm with steatosis. Gallbladder: Multiple gallbladder luminal stones are present. No wall thickening. Biliary ducts: Unremarkable. Pancreas: Unremarkable. Spleen: Unremarkable. Adrenal Glands: Unremarkable. Stomach and Bowel: Stomach, small bowel loops, and colon are unremarkable. Appendix is normal. Peritoneum: No abnormal intraperitoneal fluid. No free air. Ventral Wall: No hernia. Abdominal Nodes: No enlarged retroperitoneal or mesenteric lymph nodes. Vessels: Aorta and inferior vena cava are normal in size. PELVIS: Pelvic Organs: Unremarkable. Pelvic Nodes: Unremarkable. Miscellaneous: No inguinal hernias are seen. Bones: Unremarkable. IMPRESSION: No renal or ureteral calculi. No obstruction. Cholelithiasis without imaging evidence of cholecystitis. Dictated by: Brenda Quezada M.D. on 04/03/2022 at 20:01 Approved by: Brenda Quezada M.D. on 04/03/2022 at 20:04
--- NOTE | 2022-04-03 18:54 | PC.NURSE ---
Patient reports pain with urination, difficulty urinating, and it sprays everywhere when I pee. States he has not been able to assess it because, I can't see down there. I assessed him in triage. Penis does not have any redness, swelling, wounds, or drainage. Testicles are not red or swollen or tender.
--- NOTE | 2022-04-03 19:41 | ED_ITS ---
HPI - General Adult General Chief complaint: Urogenital-Male Stated complaint: possible kidney stone, cold Time Seen by Provider: 04/03/22 19:31 History of Present Illness HPI narrative: 52-year-old gentleman with a history of congestive heart failure, hypertension, obstructive sleep apnea, morbid obesity presents complaining of difficulty with voiding over the last couple of days. States that he is noticed when he does void its sprays and he has pain in his urethra close to the meatus. Never had kidney stones. Does not complain of fever, abdominal pain, flank pain and he is still able to void. He notes that his congestive heart failure issue is stable at this time. Related Data Home Medications Medication Instructions Recorded Confirmed albuterol sulfate 90 mcg/actuation 1 puff inhalation PRN PRN Adequate 04/07/20 04/03/22 aerosol inhaler Ventilation aspirin 81 mg tablet 81 mg PO DAILY 04/07/20 04/03/22 bupropion HCl (smoking deter) 150 150 mg PO BID 04/07/20 04/03/22 mg tablet,12 hr sustained-release(smoking deterrent) fexofenadine 180 mg tablet 180 mg PO DAILY 04/07/20 04/03/22 furosemide 80 mg tablet 80 mg PO DAILY 04/07/20 04/03/22 metoprolol tartrate 25 mg tablet 25 mg PO BID 04/07/20 04/03/22 nifedipine 30 mg tablet,extended 30 mg PO DAILY 04/07/20 04/03/22 release potassium chloride 20 mEq 20 meq PO DAILY 04/07/20 04/03/22 tablet,extended release valacyclovir 500 mg tablet 1,000 mg PO TID 04/07/20 04/03/22 Allergies Allergy/AdvReac Type Severity Reaction Status Date / Time No Known Drug Allergies Allergy Verified 04/03/22 16:11 Review of Systems Review of Systems Narrative: Remainder of complete review of systems is otherwise unremarkable except for that included in the HPI. Patient History Medical History (Updated 04/03/22 @ 22:24 by Johnna Lang MD) Cellulitis Congestive heart failure (CHF) Hypertension Nonadherence to medication Obstructive sleep apnea Social History Smoking Status: Current every day smoker Smoking Status: Current every day smoker alcohol intake frequency: holidays/special occasions only Substance Use Type: does not use Exam Initial Vital Signs Initial Vital Signs: Vital Signs Temperature 98 F 04/03/22 16:07 Pulse Rate 71 04/03/22 16:07 Respiratory Rate 18 04/03/22 16:07 Blood Pressure 199/87 H 04/03/22 16:07 Pulse Oximetry 93 04/03/22 16:07 Oxygen Delivery Method 04/03/22 16:07 General: Morbidly obese gentleman currently on CPAP for comfort able speak in full sentences not complaining of any pain at this time HEENT: Moist mucous membranes, normal sclera with reactive pupils, Respiratory: Lungs are clear to auscultation, no wheezing no rales no rhonchi. Full and symmetrical air movement Cardiac: Regular rate and rhythm no murmurs no bruits Abdomen: Soft, nontender, good bowel tones, no flank pain Skin: Warm and dry, no rashes Neurologic: Grossly neurologically intact with no obvious asymmetries or abnormalities Extremities: No trauma, well perfused, 1+ bilateral edema with chronic venous stasis changes Psych: Cooperative, appropriate insight and affect Course Orders Ordered: ED Orders 04/03/22 16:10 COVID19 -Nasal RAPID/Pre-Proc Stat Urinalysis and Microscopic Stat 04/03/22 17:10 Complete Blood Count AUTO DIFF Stat Comprehensive Metabolic Panel Stat Lipase Stat 04/03/22 18:45 XR pelvis 1-2V Stat 04/03/22 18:46 CT kidney ureter bladder (KUB) Stat Discontinued Medications Lidocaine HCl (Lidocaine 2% (Glydo) 6 Ml Gel) 6 ml TOP NOW ONE Stop: 04/03/22 21:45 Last Admin: 04/03/22 21:48 Dose: 6 ml Vital Signs Vital signs: Vital Signs - 8 hr 04/03/22 16:07 04/03/22 19:06 04/03/22 19:07 Temperature 98 F Pulse Rate 71 71 Respiratory Rate 18 Blood Pressure 199/87 H 146/88 H Pulse Oximetry 93 96 Oxygen Delivery Method Room Air 04/03/22 19:08 04/03/22 19:08 04/03/22 19:20 Temperature Pulse Rate 71 67 Respiratory Rate Blood Pressure 145/81 H Pulse Oximetry 95 93 Oxygen Delivery Method 04/03/22 19:20 Temperature Pulse Rate Respiratory Rate Blood Pressure 138/84 Pulse Oximetry Oxygen Delivery Method Medical Decision Making Lab Data 04/03/22 17:10 04/03/22 17:10 Labs: Lab Results 04/03/22 04/03/22 04/03/22 Range/Units 16:10 16:10 17:10 WBC 7.3 (4.5-11.0) X10^3/uL RBC 5.50 (4.5-5.9) X10^6/uL Hgb 15.4 (13.5-17.5) g/dL Hct 47.9 (41-53) % MCV 87.2 (80-100) fL MCH 28.0 (26-34) PG MCHC 32.1 (30-36) % RDW 15.4 H (11.6-14.8) % Plt Count 183 (150-400) X10^3/uL Neut % (Auto) 71.7 (50-75) % Lymph % (Auto) 17.1 L (25-40) % [place] % (Auto) 8.4 (3-14) % Eos % (Auto) 1.9 L (2-4) % Baso % (Auto) 0.9 (0-2) % Neut # (Auto) 5300 (7017-9579) /uL Lymph # (Auto) 1300 (1904-3549) /uL [place] # (Auto) 600 (0-900) /uL Eos # (Auto) 100 (0-450) /uL Baso # (Auto) 100 (0-100) /uL Sodium (137-145) mmol/L Potassium (3.4-5.1) mmol/L Chloride (98-107) mmol/L Carbon Dioxide (22-32) mmol/L BUN (9-20) mg/dL Creatinine (0.66-1.25) mg/dL Estimated GFR (>60) mL/min BUN/Creatinine Ratio (6-22) Glucose (70-100) mg/dL Calcium (8.4-10.2) mg/dL Total Bilirubin (0.2-1.3) mg/dL AST (17-59) IU/L ALT (<50) IU/L Alkaline Phosphatase (38-126) U/L Total Protein (6.3-8.2) g/dL Albumin (3.5-5.0) g/dL Globulin (1.7-4.1) g/dL Albumin/Globulin Ratio (1.0-2.8) Lipase (23-300) U/L Urine Color Yellow Urine Appearance Sl cloudy Urine pH 7.0 (4.5-8.0) Ur Specific [place] 1.020 (1.000-1.035) Urine Protein 1+ H (Negative) Urine Glucose (UA) Negative (Negative) g/dL Urine Ketones Trace H (NEGATIVE) Urine Occult Blood 3+ H (Negative) Urine Nitrate Negative (Negative) Urine Bilirubin Negative (NEGATIVE) Urine Urobilinogen 1.0 (0.2) E.U./dL Ur Leukocyte Esterase Negative (NEGATIVE) Urine RBC 30-100/hpf H (0-5/HPF) Urine WBC 1-5/hpf (0-5/HPF) Ur Squamous Epith Cells 1-5 /hpf (0-5/HPF) Ur Transition Epith Cell 0-1/hpf (0-5/HPF) Urine Bacteria Occasional (0-1) (None) Ur Culture Indicated? Cult not indicated SARS-CoV-2 (PCR) Negative (Negative) 04/03/22 Range/Units 17:10 WBC (4.5-11.0) X10^3/uL RBC (4.5-5.9) X10^6/uL Hgb (13.5-17.5) g/dL Hct (41-53) % MCV (80-100) fL MCH (26-34) PG MCHC (30-36) % RDW (11.6-14.8) % Plt Count (150-400) X10^3/uL Neut % (Auto) (50-75) % Lymph % (Auto) (25-40) % [place] % (Auto) (3-14) % Eos % (Auto) (2-4) % Baso % (Auto) (0-2) % Neut # (Auto) (4115-8362) /uL Lymph # (Auto) (9574-3752) /uL [place] # (Auto) (0-900) /uL Eos # (Auto) (0-450) /uL Baso # (Auto) (0-100) /uL Sodium 141 (137-145) mmol/L Potassium 4.0 (3.4-5.1) mmol/L Chloride 98 (98-107) mmol/L Carbon Dioxide 37 H (22-32) mmol/L BUN 14 (9-20) mg/dL Creatinine 0.68 (0.66-1.25) mg/dL Estimated GFR > 60 (>60) mL/min BUN/Creatinine Ratio 20.6 (6-22) Glucose 87 (70-100) mg/dL Calcium 8.5 (8.4-10.2) mg/dL Total Bilirubin 0.4 (0.2-1.3) mg/dL AST 19 (17-59) IU/L ALT 22 (<50) IU/L Alkaline Phosphatase 94 (38-126) U/L Total Protein 7.9 (6.3-8.2) g/dL Albumin 4.0 (3.5-5.0) g/dL Globulin 3.9 (1.7-4.1) g/dL Albumin/Globulin Ratio 1.0 (1.0-2.8) Lipase 29 (23-300) U/L Urine Color Urine Appearance Urine pH (4.5-8.0) Ur Specific [place] (1.000-1.035) Urine Protein (Negative) Urine Glucose (UA) (Negative) g/dL Urine Ketones (NEGATIVE) Urine Occult Blood (Negative) Urine Nitrate (Negative) Urine Bilirubin (NEGATIVE) Urine Urobilinogen (0.2) E.U./dL Ur Leukocyte Esterase (NEGATIVE) Urine RBC (0-5/HPF) Urine WBC (0-5/HPF) Ur Squamous Epith Cells (0-5/HPF) Ur Transition Epith Cell (0-5/HPF) Urine Bacteria (None) Ur Culture Indicated? SARS-CoV-2 (PCR) (Negative) Imaging Data CT scan - abdomen/pelvis: Radiologist's Impression: FINDINGS:? Image quality:? Excellent.? ? Lung bases:? Partially visualized left basilar opacities. Heart:? No significant findings. ? URINARY: Right Kidney:? There is a hypertrophied appearance of the right kidney appearing more anterior in comparison to the left.? No stones.? No obstruction.? Right Ureter:? No hydroureter.? ? Left Kidney: ? No stones or hydronephrosis. Left Ureter:? No hydroureter.? ? Bladder:? Normal wall thickness. No stones. ? ? ? ABDOMEN: Liver:? Liver is enlarged measuring 25.2 cm with steatosis. Gallbladder:? Multiple gallbladder luminal stones are present.? No wall thickening.? Biliary ducts:? Unremarkable.? ? Pancreas:? Unremarkable.? ? Spleen:? Unremarkable.? ? Adrenal Glands:? Unremarkable.? ? ? Stomach and Bowel:? Stomach, small bowel loops, and colon are unremarkable.? Appendix is normal. Peritoneum:? No abnormal intraperitoneal fluid.? No free air.? ? Ventral Wall: ? No hernia.? Abdominal Nodes:? No enlarged retroperitoneal or mesenteric lymph nodes.? Vessels:? Aorta and inferior vena cava are normal in size.? ? PELVIS: Pelvic Organs:? Unremarkable.? ? Pelvic Nodes: Unremarkable. Miscellaneous: No inguinal hernias are seen. ? ? ? Bones:? Unremarkable. ? IMPRESSION:? ? No renal or ureteral calculi.? No obstruction. ? Cholelithiasis without imaging evidence of cholecystitis. ? ? ? Dictated by: Brenda Quezada M.D. on 04/03/2022 at 20:01 ? ? MDM Narrative Medical decision making narrative: CC: Difficulty voiding over the last couple of days with ?spraying? with voids and pain in the distal portion of his penis Complicating co-morbidities: Morbid obesity, congestive heart failure, sleep apnea, hypertension Corroborating data: Data collected from: patient, Differential considered: Urethral abnormality, urethral stone, bladder stone, kidney stone, urinary tract infection Exam documented above, pertinent findings include: No specific abnormalities are appreciated on exam Lab Test results independently reviewed as above. Pertinent findings: CBC is unremarkable Chemistries are unremarkable with normal kidney function Urine with red blood cells trace ketones no white blood cells or nitrates Independently reviewed EKG as above Imaging studies independently reviewed: CT scan does not show any significant abnormalities or obvious stones in the urinary system including to the tip of the urethra Treatments: Eldridge catheter is placed. There is a small irritation at the urethral meatus that is the source of his pain. It may be that there some swelling there that is causing the ?sprain? that he is complaining of. Eldridge catheter passed without difficulty, bladder is drained and the catheter is removed. Explained finding to the patient. And at this point he is safe for discharge home. This minor irritation should heal spontaneously and does not look like anything that needs further treatment or workup. Re-evaluations:945pm patient is updated on CT scan findings and lack of obvious obstructing abnormality. Informed him of plan to try Eldridge catheter placement to see if it helps resolve problems he agrees to this. Will re-evaluate after the catheter has been placed, bladder Eldridge drained, catheter is removed and see how he is doing Discussion: 52-year-old gentleman with irritation to the urethral meatus that I believe is the source of his urine difficulties. Due to his body habitus he is not able to see the tip of his penis to assess this himself. There is no evidence infection, kidney stone, acute kidney injury and no indication for additional workup or hospitalization at this time. The small irritation should heal spontaneously and does not look like it is herpetic lesion, bacterial concern or yeast abnormality. Disposition: see below, along with detailed discharge instructions that have b dren reviewed with patient as well as indications for ED re-evaluation and additional outpatient follow up Discharge Plan Departure Patient Disposition: Home Clinical Impression: Irritation of urethral meatus Activity Restrictions/Additional Instructions: Thank you for coming in today Your workup does not show acute infection, kidney infection, bladder infection. You have no kidney stones and there does not appear to be any acute obstruction in your penis. At the very tip of your penis there is a small irritation and I suspect that the bit of swelling from that is what is causing the spring that you are noticing when you are voiding. This area should heal spontaneously. It does not look like a bacterial infection, a herpetic lesion or a yeast infection. Additional antibiotics and treatment are not required at this point. If the area continues to bother you or your having additional problems, I would encourage you follow-up with your primary care physician If you find that you are getting worse or develop any new symptoms, please feel free to return to the emergency department for further evaluation. Prescriptions: No Action nifedipine 30 mg tablet extended release 30 mg PO DAILY fexofenadine 180 mg tablet 180 mg PO DAILY valacyclovir 500 mg Tablet 1,000 mg PO TID furosemide 80 mg tablet 80 mg PO DAILY aspirin 81 mg Tablet 81 mg PO DAILY albuterol sulfate 90 mcg/actuation HFA aerosol inhaler 1 puff INHALATION PRN PRN (Reason: Adequate Ventilation) Label Comments: INHALE 2 PUFFS BY MOUTH INTO THE LUNGS EVERY 6 HOURS NEEDED FOR WHEEZING metoprolol tartrate 25 mg Tablet 25 mg PO BID potassium chloride 20 mEq Tablet Extended Release 20 meq PO DAILY bupropion HCl (smoking deter) 150 mg tablet extended release 12 hr 150 mg PO BID Stand Alone Forms: Patient Portal/API
[2022-04-03] MEDS: LIDOCAINE 2% (GLYDO) 6 ML GEL TOP (21:48)
--- NOTE | 2022-04-03 22:23 | PC.NURSE ---
hadley cath inserted with aseptic technique,c/o being sore on the tip of his penis.He had lindsay small whitelesion on upper tip of his penis,DR Lang notified.
== END 2022-04-03 23:05 | disposition home or self-care (01) ==
PROVIDERS: Emergency Medicine; Emergency Provider Emergency Medicine
DX: N36.8 Other specified disorders of urethra (principal); Z20.822 Contact with and (suspected) exposure to COVID-19
CPT/HCPCS: 36415; 72170; 74176; 80053; 81001; 83690; 85025; 87635; 99284; C9803

== ENCOUNTER 2022-06-27 11:44 | Emergency (ER) | payer OTHER, MEDICAID, SELFPAY ==
[2022-06-27 11:54] VITALS: BP 179/93; PULSE 70; RESP 20; TEMP 36.8; O2SAT 93; BMI 56.5
--- NOTE | 2022-06-27 17:05 | DI.US.S_ITS ---
PROCEDURE: [facility]REM [facility] INDICATIONS: Pain and swelling TECHNIQUE: Real-time imaging, as well as color and pulse Doppler interrogation, were performed of the lower extremity deep veins from the inguinal ligament to the popliteal fossa. COMPARISON: [facility], , [facility] VENOUS LOW EXTREM LT, 03/05/2019, 12:34. FINDINGS: The common femoral, femoral and popliteal veins are normally compressible, and free of intraluminal thrombus. Color and pulse Doppler demonstrate normal phasic intraluminal flow. There is normal augmentation response to distal compression maneuver. IMPRESSION: Negative for deep venous thrombosis. Dictated by: Bud Mantilla M.D. on 06/27/2022 at 17:13 Approved by: Bud Mantilla M.D. on 06/27/2022 at 17:13
--- NOTE | 2022-06-27 17:08 | ED.EXTPRO ---
HPI - Extremity Problem <Duran Newell MD - Last Filed: 07/15/22 22:40> General Chief complaint: Extremity Problem,Nontraumatic Stated complaint: cellulitis on lt leg Time Seen by Provider: 06/27/22 17:00 Source: patient Mode of arrival: Ambulatory History of Present Illness HPI Narrative: Patient here for complaints left distal anterior leg redness pain and swelling. This is the same spot he was treated with Keflex for cellulitis in January 06, 2019. Patient was seen here. He states antibiotics had resolved the problem. Denies any injury recently to this area. Denies any history of diabetes. No history of blood clots in legs or lungs. Thigh to toes exposed Related Data Home Medications Medication Instructions Recorded Confirmed albuterol sulfate 90 mcg/actuation 1 puff inhalation PRN PRN Adequate 04/07/20 04/03/22 aerosol inhaler Ventilation aspirin 81 mg tablet 81 mg PO DAILY 04/07/20 04/03/22 bupropion HCl (smoking deter) 150 150 mg PO BID 04/07/20 04/03/22 mg tablet,12 hr sustained-release(smoking deterrent) fexofenadine 180 mg tablet 180 mg PO DAILY 04/07/20 04/03/22 furosemide 80 mg tablet 80 mg PO DAILY 04/07/20 04/03/22 metoprolol tartrate 25 mg tablet 25 mg PO BID 04/07/20 04/03/22 nifedipine 30 mg tablet,extended 30 mg PO DAILY 04/07/20 04/03/22 release potassium chloride 20 mEq 20 meq PO DAILY 04/07/20 04/03/22 tablet,extended release valacyclovir 500 mg tablet 1,000 mg PO TID 04/07/20 04/03/22 Previous Rx's Medication Instructions Recorded doxycycline monohydrate 100 mg 100 mg PO BID #20 caps 06/27/22 capsule Allergies Allergy/AdvReac Type Severity Reaction Status Date / Time No Known Drug Allergies Allergy Verified 04/03/22 16:11 Review of Systems <Duran Newell MD - Last Filed: 07/15/22 22:40> Review of Systems Narrative: GENERAL: negative chills, fatigue, malaise, fever, sweats. HEENT: negative sinus pain, ear pain, sore throat RESPIRATORY: negative dyspnea, cough CARDIOVASCULAR: negative chest pain, palpitations GASTROINTESTINAL: negative nausea, vomiting, abdominal pain : negative dysuria, frequency, hematuria MUSCULOSKELETAL: Positive muscle or bony pain SKIN: Positive skin color change NEUROLOGIC: negative weakness, numbness ROS Unobtainable: All systems reviewed & are unremarkable except as noted in HPI and below Patient History <Duran Newell MD - Last Filed: 07/15/22 22:40> Medical History (Updated 07/12/22 @ 00:01 by ) Cellulitis Congestive heart failure (CHF) Hypertension Nonadherence to medication Obstructive sleep apnea Social History Smoking Status: Current every day smoker Smoking Status: Current every day smoker tobacco type: cigarettes alcohol intake frequency: holidays/special occasions only Substance Use Type: does not use Exam <Duran Newell MD - Last Filed: 07/15/22 22:40> Narrative Exam Narrative: GENERAL: in no distress, not toxic not dyspneic HEAD: Normocephalic. EYES: Pupils equal round ENT: Mucous membranes moist. NECK: Trachea midline. CARDIOVASCULAR: Regular rate and rhythm without murmurs RESPIRATORY: Clear to auscultation. Breath sounds equal bilaterally. No wheezes, rales, or rhonchi. EXTREMITIES: No gross deformities. Examination left lower extremity. Foot is warm soft and pink with strong pedal pulse and brisk cap refills. Light touch intact to foot and toes. There is distal 3rd anterior leg tenderness and darkening of the skin. No fluctuance. No vesicles. It is erythematous on the borders of the darkened skin. Calf is nontender. Skin is edematous around the cellulitic area. NEURO: AOx4. SKIN: Warm and dry PSYCH: Not anxious, is cooperative Initial Vital Signs Initial Vital Signs: Vital Signs Temperature 98.3 F 06/27/22 11:54 Pulse Rate 70 06/27/22 11:54 Respiratory Rate 20 06/27/22 11:54 Blood Pressure 179/93 H 06/27/22 11:54 Pulse Oximetry 93 06/27/22 11:54 Oxygen Delivery Method Room Air 06/27/22 11:54 <Lanie Prieto DO - Last Filed: 06/28/22 01:26> Initial Vital Signs Initial Vital Signs: Vital Signs Temperature 98.3 F 06/27/22 11:54 Pulse Rate 70 06/27/22 11:54 Respiratory Rate 20 06/27/22 11:54 Blood Pressure 179/93 H 06/27/22 11:54 Pulse Oximetry 93 06/27/22 11:54 Oxygen Delivery Method Room Air 06/27/22 11:54 Course <Duran Newell MD - Last Filed: 07/15/22 22:40> Orders Ordered: Discontinued Medications Doxycycline Hyclate (Doxycycline Hyclate 100 Mg Tablet) 100 mg PO NOW ONE Stop: 06/27/22 18:44 Last Admin: 06/27/22 18:49 Dose: 100 mg Documented By: AT Vital Signs Vital signs: Vital Signs - 8 hr 06/27/22 18:52 Pulse Rate 89 Respiratory Rate 20 Blood Pressure 138/65 Pulse Oximetry 92 Oxygen Delivery Method Room Air <Lanie Prieto DO - Last Filed: 06/28/22 01:26> Orders Ordered: Discontinued Medications Doxycycline Hyclate (Doxycycline Hyclate 100 Mg Tablet) 100 mg PO NOW ONE Stop: 06/27/22 18:44 Last Admin: 06/27/22 18:49 Dose: 100 mg Documented By: AT Vital Signs Vital signs: Vital Signs - 8 hr 06/27/22 18:52 Pulse Rate 89 Respiratory Rate 20 Blood Pressure 138/65 Pulse Oximetry 92 Oxygen Delivery Method Room Air MDM - Extremity (Nontraumatic) <Duran Newell MD - Last Filed: 07/15/22 22:40> Lab Data 06/27/22 17:17 06/27/22 17:17 Labs: Lab Results 06/27/22 06/27/22 Range/Units 17:17 17:17 WBC 8.7 (4.5-11.0) X10^3/uL RBC 5.77 (4.5-5.9) X10^6/uL Hgb 15.6 (13.5-17.5) g/dL Hct 48.4 (41-53) % MCV 84.0 (80-100) fL MCH 27.0 (26-34) PG MCHC 32.2 (30-36) % RDW 16.0 H (11.6-14.8) % Plt Count 204 (150-400) X10^3/uL Neut % (Auto) 77.4 H (50-75) % Lymph % (Auto) 13.9 L (25-40) % Nuckolls % (Auto) 5.4 (3-14) % Eos % (Auto) 2.1 (2-4) % Baso % (Auto) 1.2 (0-2) % Neut # (Auto) 6700 (1311-9757) /uL Lymph # (Auto) 1200 (8322-2118) /uL Nuckolls # (Auto) 500 (0-900) /uL Eos # (Auto) 200 (0-450) /uL Baso # (Auto) 100 (0-100) /uL Sodium 139 (137-145) mmol/L Potassium 3.9 (3.4-5.1) mmol/L Chloride 99 (98-107) mmol/L Carbon Dioxide 34 H (22-32) mmol/L BUN 17 (9-20) mg/dL Creatinine 0.61 L (0.66-1.25) mg/dL Estimated GFR > 60 (>60) mL/min BUN/Creatinine Ratio 27.9 H (6-22) Glucose 97 (70-100) mg/dL Calcium 9.1 (8.4-10.2) mg/dL Total Bilirubin 0.6 (0.2-1.3) mg/dL AST 28 (17-59) IU/L ALT 27 (<50) IU/L Alkaline Phosphatase 98 (38-126) U/L Total Protein 8.1 (6.3-8.2) g/dL Albumin 4.4 (3.5-5.0) g/dL Globulin 3.7 (1.7-4.1) g/dL Albumin/Globulin Ratio 1.2 (1.0-2.8) Imaging Data US - DVT: Radiologist's Impression: PROCEDURE: US [facility] VENOUS LOW EXTREM LT INDICATIONS: Pain and swelling TECHNIQUE: Real-time imaging, as well as color and pulse Doppler interrogation, were performed of the lower extremity deep veins from the inguinal ligament to the popliteal fossa. COMPARISON: [facility], , US [facility] VENOUS LOW EXTREM LT, 03/05/2019, 12:34. FINDINGS: The common femoral, femoral and popliteal veins are normally compressible, and free of intraluminal thrombus. Color and pulse Doppler demonstrate normal phasic intraluminal flow. There is normal augmentation response to distal compression maneuver. IMPRESSION: Negative for deep venous thrombosis. Dictated by: Bud Mantilla M.D. on 06/27/2022 at 17:13 Approved by: Bud Mantilla M.D. on 06/27/2022 at 17:13 [facility] Narrative Medical decision making narrative: After history and exam CBC CMP venous Doppler of the leg doxycycline ordered [facility] CC: Left leg pain and swelling Complicating co-morbidities: History of cellulitis in the same leg and area Data collected from: Patient Medical records reviewed: ER visit here for left leg cellulitis January 06 2019 Differential considered: Includes but not limited to DVT SVT cellulitis Exam documented above, pertinent findings include: Tender erythematous distal left leg Lab Test results independently reviewed as above. Pertinent findings: WBC 8.7 hemoglobin 15 sodium 139 potassium 3.9 BUN 17 creatinine 0.61 GFR greater than 60 Imaging studies independently reviewed: Ultrasound left leg no DVT Consultations: None indicated Treatments: Doxycycline Re-evaluations: Reviewed results with patient. Pain is controlled. Agrees with treatment plan. Return precautions reviewed. He does have a family doctor to follow up with. Not toxic at discharge Discussion: Appropriate for discharge home. Laboratory studies imaging exam are reassuring. Patient does have a family doctor. Return precautions reviewed with him. Antibiotics were started here tonight. Prescription sent to his pharmacy. Diagnosis: Left leg cellulitis <Lanie Prieto DO - Last Filed: 06/28/22 01:26> Lab Data Labs: Lab Results 06/27/22 06/27/22 Range/Units 17:17 17:17 WBC 8.7 (4.5-11.0) X10^3/uL RBC 5.77 (4.5-5.9) X10^6/uL Hgb 15.6 (13.5-17.5) g/dL Hct 48.4 (41-53) % MCV 84.0 (80-100) fL MCH 27.0 (26-34) PG MCHC 32.2 (30-36) % RDW 16.0 H (11.6-14.8) % Plt Count 204 (150-400) X10^3/uL Neut % (Auto) 77.4 H (50-75) % Lymph % (Auto) 13.9 L (25-40) % Nuckolls % (Auto) 5.4 (3-14) % Eos % (Auto) 2.1 (2-4) % Baso % (Auto) 1.2 (0-2) % Neut # (Auto) 6700 (5266-8950) /uL Lymph # (Auto) 1200 (2970-9041) /uL Nuckolls # (Auto) 500 (0-900) /uL Eos # (Auto) 200 (0-450) /uL Baso # (Auto) 100 (0-100) /uL Sodium 139 (137-145) mmol/L Potassium 3.9 (3.4-5.1) mmol/L Chloride 99 (98-107) mmol/L Carbon Dioxide 34 H (22-32) mmol/L BUN 17 (9-20) mg/dL Creatinine 0.61 L (0.66-1.25) mg/dL Estimated GFR > 60 (>60) mL/min BUN/Creatinine Ratio 27.9 H (6-22) Glucose 97 (70-100) mg/dL Calcium 9.1 (8.4-10.2) mg/dL Total Bilirubin 0.6 (0.2-1.3) mg/dL AST 28 (17-59) IU/L ALT 27 (<50) IU/L Alkaline Phosphatase 98 (38-126) U/L Total Protein 8.1 (6.3-8.2) g/dL Albumin 4.4 (3.5-5.0) g/dL Globulin 3.7 (1.7-4.1) g/dL Albumin/Globulin Ratio 1.2 (1.0-2.8) MDM Narrative Medical decision making narrative: After history and exam CBC CMP venous Doppler of the leg doxycycline ordered [facility] CC: Left leg pain and swelling Complicating co-morbidities: History of cellulitis in the same leg and area Data collected from: Patient Medical records reviewed: ER visit here for left leg cellulitis January 06 2019 Differential considered: Includes but not limited to DVT SVT cellulitis Exam documented above, pertinent findings include: Tender erythematous distal left leg Lab Test results independently reviewed as above. Pertinent findings: WBC 8.7 hemoglobin 15 sodium 139 potassium 3.9 BUN 17 creatinine 0.61 GFR greater than 60 Imaging studies independently reviewed: Ultrasound left leg no DVT Consultations: None indicated Treatments: Doxycycline Re-evaluations: Reviewed results with patient. Pain is controlled. Agrees with treatment plan. Return precautions reviewed. He does have a family doctor to follow up with. Not toxic at discharge Discussion: Appropriate for discharge home. Laboratory studies imaging exam are reassuring. Patient does have a family doctor. Return precautions reviewed with him. Antibiotics were started here tonight. Prescription sent to his pharmacy. Diagnosis: Left leg cellulitis [place]-patient never seen or evaluated by myself patient was dispositioned by Dr. Newell Discharge Plan Departure Patient Disposition: Home Clinical Impression: Cellulitis Instructions: DI for Cellulitis -- Adult Activity Restrictions/Additional Instructions: See family doctor within a week for re-evaluation of your skin infection of the leg/cellulitis. Continue antibiotic tomorrow. Prescription has been sent to your pharmacy to [facility]. Return if worse if any questions or concerns. Today's laboratory studies and ultrasound are reassuring. No blood clot in your leg. Prescriptions: New doxycycline monohydrate 100 mg capsule 100 mg PO BID Qty: 20 0RF No Action nifedipine 30 mg tablet extended release 30 mg PO DAILY fexofenadine 180 mg tablet 180 mg PO DAILY valacyclovir 500 mg Tablet 1,000 mg PO TID furosemide 80 mg tablet 80 mg PO DAILY aspirin 81 mg Tablet 81 mg PO DAILY albuterol sulfate 90 mcg/actuation HFA aerosol inhaler 1 puff INHALATION PRN PRN (Reason: Adequate Ventilation) Patient Comments: INHALE 2 PUFFS BY MOUTH INTO THE LUNGS EVERY 6 HOURS NEEDED FOR WHEEZING metoprolol tartrate 25 mg Tablet 25 mg PO BID potassium chloride 20 mEq Tablet Extended Release 20 meq PO DAILY bupropion HCl (smoking deter) 150 mg tablet extended release 12 hr 150 mg PO BID Referrals: Miscellaneous,Doctor, [Primary Care Provider] - Stand Alone Forms: Patient Portal/API
[2022-06-27 17:53] LABS: Add Manual Diff / Slide Review NO; Hematocrit 48.4 % (41-53); Hemoglobin 15.6 g/dL (13.5-17.5); Mean Corpuscular HGB Conc 32.2 % (30-36); Platelet Count 204 X10^3/uL (150-400); Red Blood Cell Count 5.77 X10^6/uL (4.5-5.9); White Blood Cell Count 8.7 X10^3/uL (4.5-11.0)
[2022-06-27 17:54] LABS: Basophils Absolute Auto 100 /uL (0-100); Basophils Percent Auto 1.2 % (0-2); Eosinophils Absolute Auto 200 /uL (0-450); Eosinophils Percent Auto 2.1 % (2-4); Lymphocytes Absolute Auto 1200 /uL (1100-4500); Lymphocytes Percent Auto 13.9 % (25-40); Monocytes Absolute Auto 500 /uL (0-900); Monocytes Percent Auto 5.4 % (3-14); Neutrophils Absolute Auto 6700 /uL (1500-7000); Neutrophils Percent Auto 77.4 % (50-75)
[2022-06-27 18:20] LABS: Alanine Aminotransferase 27 IU/L (<50); Albumin 4.4 g/dL (3.5-5.0); Albumin Globulin Ratio 1.2 (1.0-2.8); Alkaline Phosphatase 98 U/L (38-126); Aspartate Aminotransferase 28 IU/L (17-59); BUN Creatinine Ratio 27.9 (6-22); Bilirubin Total 0.6 mg/dL (0.2-1.3); Blood Urea Nitrogen 17 mg/dL (9-20); Calcium 9.1 mg/dL (8.4-10.2); Carbon Dioxide 34 mmol/L (22-32); Chloride 99 mmol/L (98-107); Estimated Glomerular Filt Rate > 60 mL/min (>60); Globulin 3.7 g/dL (1.7-4.1); Glucose 97 mg/dL (70-100); HEMOLYSIS < 15 (0-50); Potassium 3.9 mmol/L (3.4-5.1); Sodium 139 mmol/L (137-145); Total Protein 8.1 g/dL (6.3-8.2)
[2022-06-27] MEDS: DOXYCYCLINE HYCLATE 100 MG TABLET PO (18:49)
[2022-06-27 18:52] VITALS: BP 138/65; PULSE 89; RESP 20; O2SAT 92
== END 2022-06-27 18:47 | disposition home or self-care (01) ==
PROVIDERS: Emergency Provider Emergency Medicine
DX: L03.116 Cellulitis of left lower limb (principal); Z79.899 Other long term (current) drug therapy
CPT/HCPCS: 36415; 80053; 85025; 93971; 99284

== ENCOUNTER 2023-02-17 16:27 | Emergency (ER) | payer OTHER, MEDICAID, SELFPAY ==
[2023-02-17] VITALS (19 sets, daily range): BP systolic 109–156; BP diastolic 52–90; PULSE 62–73; RESP 10–35; TEMP 37.1; O2SAT 89–94; BMI 55.7
--- NOTE | 2023-02-17 17:02 | DI.RAD.S_ITS ---
PROCEDURE: XR CHEST 1V INDICATIONS: Shortness of breath TECHNIQUE: One view of the chest was acquired. COMPARISON: None. FINDINGS: Exam imaging is degraded by patient body habitus. Surgical changes and devices: None. Lungs and pleura: Question opacity within the retrocardiac left lower lung. No pleural effusions or pneumothorax. Mediastinum: Cardiomegaly. Bones and chest wall: No suspicious bony lesions. Overlying soft tissues appear unremarkable. IMPRESSION: Left lower lobe opacity is indeterminate may reflect infection, pleural effusion, or soft tissue summation artifact. Dictated by: Duran Amado M.D. on 02/17/2023 at 16:23 Approved by: Duran Amado M.D. on 02/17/2023 at 16:25
--- NOTE | 2023-02-17 17:12 | PC.NURSE ---
Carbon monoxide is 14. RT and provider at bedside.
[2023-02-17] MEDS: methylPREDNISolone 125 MG/2 ML VIAL IV (17:23)
[2023-02-17] MEDS: FUROSEMIDE 40 MG/4 ML VIAL IV (17:23)
[2023-02-17 17:29] LABS: Add Manual Diff / Slide Review NO; Basophils Absolute Auto 0 /uL (0-100); Basophils Percent Auto 0.1 % (0-2); Eosinophils Absolute Auto 100 /uL (0-450); Eosinophils Percent Auto 0.7 % (2-4); Hematocrit 39.6 % (41-53); Hemoglobin 12.4 g/dL (13.5-17.5); Lymphocytes Absolute Auto 800 /uL (1100-4500); Lymphocytes Percent Auto 9.9 % (25-40); Mean Corpuscular HGB Conc 31.2 % (30-36); Mean Corpuscular Volume 89.8 fL (80-100); Monocytes Absolute Auto 600 /uL (0-900); Monocytes Percent Auto 7.1 % (3-14); Neutrophils Absolute Auto 6700 /uL (1500-7000); Neutrophils Percent Auto 82.2 % (50-75); Platelet Count 203 X10^3/uL (150-400); Red Blood Cell Count 4.42 X10^6/uL (4.5-5.9); Red Cell Distribution Width 17.1 % (11.6-14.8); White Blood Cell Count 8.2 X10^3/uL (4.5-11.0)
[2023-02-17 17:36] LABS: INR 1.2 (0.9-1.3); Prothrombin Time 13.4 SECONDS (9.4-12.5)
[2023-02-17 17:39] LABS: Lactate (Lactic Acid) 1.8 mmol/L (0.7-2.1); PTT Partial Thromboplastin Tim 32 SECONDS (25.1-36.5)
[2023-02-17 17:41] LABS: Alanine Aminotransferase 21 IU/L (<50); Albumin 3.8 g/dL (3.5-5.0); Alkaline Phosphatase 79 U/L (38-126); Aspartate Aminotransferase 19 IU/L (17-59); BUN Creatinine Ratio 36.5 (6-22); Bilirubin Total 0.6 mg/dL (0.2-1.3); Blood Urea Nitrogen 27 mg/dL (9-20); Calcium 9.3 mg/dL (8.4-10.2); Chloride 88 mmol/L (98-107); Creatine Kinase 23 U/L (55-170); Estimated Glomerular Filt Rate > 60 mL/min (>60); Globulin 3.8 g/dL (1.7-4.1); Glucose 116 mg/dL (70-100); HEMOLYSIS < 15 (0-50); Lipase 23 U/L (23-300); Potassium 4.2 mmol/L (3.4-5.1); Sodium 136 mmol/L (137-145); Total Protein 7.6 g/dL (6.3-8.2)
[2023-02-17 17:51] LABS: Carbon Dioxide 45 mmol/L (22-32); NT-proBNP (BNP-Adult 18+) 781 pg/mL (<125); Troponin I 0.016 ng/mL (0.01-0.034)
--- NOTE | 2023-02-17 18:25 | ED.SOB ---
HPI - SOB/Dyspnea General Chief Complaint: Shortness of Breath/Dyspnea Stated Complaint: SOB Time Seen by Provider: 02/17/23 17:03 Source: patient and EMS Mode of arrival: EMS History of Present Illness HPI Narrative: 53-year-old man with a history of CHF, presenting with shortness of breath. He is on home oxygen, says he was feeling fatigued earlier today and believes that his oxygen was not working. He called EMS they found him with oxygen saturations in the 70s. Even on supplemental oxygen his saturations were only down in the 80s. He said he had 2 hours of chest pain unless yesterday. He has a nonproductive cough he is not been having fevers. He says that he is feeling better, when I encountered the patient he is on BiPAP. The patient tells me he is had [address] [facility] he thinks it was about 3 years ago. His medications include furosemide 80 mg daily. He is not noted any weight gain. When I encountered him, the patient states that he would not wish to be intubated again although he is not definitive about that. Related Data Home Medications Medication Instructions Recorded Confirmed albuterol sulfate 90 mcg/actuation 1 puff inhalation PRN PRN Adequate 04/07/20 04/03/22 aerosol inhaler Ventilation aspirin 81 mg tablet 81 mg PO DAILY 04/07/20 04/03/22 bupropion HCl (smoking deter) 150 150 mg PO BID 04/07/20 04/03/22 mg tablet,12 hr sustained-release(smoking deterrent) fexofenadine 180 mg tablet 180 mg PO DAILY 04/07/20 04/03/22 furosemide 80 mg tablet 80 mg PO DAILY 04/07/20 04/03/22 metoprolol tartrate 25 mg tablet 25 mg PO BID 04/07/20 04/03/22 nifedipine 30 mg tablet,extended 30 mg PO DAILY 04/07/20 04/03/22 release potassium chloride 20 mEq 20 meq PO DAILY 04/07/20 04/03/22 tablet,extended release valacyclovir 500 mg tablet 1,000 mg PO TID 04/07/20 04/03/22 Previous Rx's Medication Instructions Recorded doxycycline monohydrate 100 mg 100 mg PO BID #20 caps 06/27/22 capsule Allergies Allergy/AdvReac Type Severity Reaction Status Date / Time No Known Drug Allergies Allergy Verified 04/03/22 16:11 Patient History Medical History (Updated 07/12/22 @ 00:01 by ) Obstructive sleep apnea Cellulitis Nonadherence to medication Hypertension Congestive heart failure (CHF) Social History Smoking Status: Current every day smoker Smoking Status: Current every day smoker tobacco type: cigarettes alcohol intake frequency: holidays/special occasions only Substance Use Type: does not use Exam Initial Vital Signs Initial Vital Signs: Vital Signs Temperature 98.8 F 02/17/23 16:54 Pulse Rate 72 02/17/23 16:54 Respiratory Rate 26 H 02/17/23 16:54 Blood Pressure 148/82 H 02/17/23 16:54 Pulse Oximetry 92 02/17/23 16:54 Oxygen Delivery Method Non -Rebreather 02/17/23 16:54 Oxygen Flow Rate 15 02/17/23 16:54 Const General: disheveled and lethargic Other: Morbidly obese [facility] Head: normocephalic and atraumatic Neck Neck: normal visual inspection, supple and other (Unable to evaluate for jugular venous distention secondary to body habitus) Resp Effort & Inspection: labored Auscultation: other (Decreased breath sounds throughout, rhonchi throughout no wheezing) Cardio Rate: regular rate Rhythm: regular rhythm Heart Sounds: no gallops and no murmurs Skin General: no rashes or lesions noted Neuro General: patient awake, patient oriented x3 and moves all extremities Extrem Other: No lower extremity swelling noted Procedures Intubation Time of Intubation: 00:32 Time out performed: Yes sedative: Ketamine paralytic: Rocuronium Laryngoscope: fiber optic video scope ET Tube Size: 7.5 Tube Secured Depth (cm): 23 Tube Placement Confirmation: Visualized tube passing through cords, Equal breath sounds bilaterally, No breath sounds over epigastrium, Confirmation by capnometry and Chest Xray [facility] Procedure Name of Procedure: critical care Additional Comments: 1 hour of critical care time, exclusive of procedures for respiratory failure requiring noinvasive positive pressure ventilation and then endotracheal intubation. Patient required multiple re-evaluations, discussions with consultants including admitting physician, reassessment and decision to transfer, efforts in finding a transfer reassessment and intubation. Course Course Course Narrative: At 7:45 p.m., I re-evaluated the patient. He still appears to be comfortable on BiPAP. He declined repeat arterial blood gas. He confirms that he would not want to be intubated even if it meant he would not survive this illness, he also confirms that he does not wish to be resuscitated in the event of a cardiac arrest. Patient was advised that he is COVID positive. Patient did not get vaccinated. He is refusing remdesivir. Agrees with plan to hospitalize and provide supportive care and is agreeable to receiving dexamethasone Decision to Admit Date: 02/17/23 Decision to Admit time: 19:49 Orders Ordered: ED Orders 02/17/23 17:02 Consult to TOWER CRANE OPERATOR - Skein Straightener Stat XR chest 1V Stat Measure peak expiratory flow ONCE RT Consult Eval and Treat NOW 02/17/23 17:10 Complete Blood Count AUTO DIFF Stat Comprehensive Metabolic Panel Stat Lactate (Lactic Acid) Stat Lipase Stat NT-proBNP (BNP-Adult 18+) Stat PTT Partial Thromboplastin Buck Stat Prothrombin Time INR Stat Troponin & CK Cardiac Panel Stat 02/17/23 17:20 Respiratory Panel (Film Array) Stat 02/17/23 17:30 BiPAP Ventilatory Support RT PROTOCOL 02/17/23 17:53 ABG [Arterial Blood Gas] Stat 02/17/23 19:16 ABG [Arterial Blood Gas] Stat 02/17/23 20:08 Venous Blood Gas Stat 02/17/23 21:00 NT-proBNP (BNP-Adult 18+) DAILY 02/17/23 23:14 Venous Blood Gas Stat Discontinued Medications Acetaminophen (Acetaminophen 325 Mg Tablet) 650 mg PO Q6H PRN PRN Reason: Fever/Mild Pain (1-3) Albuterol (Albuterol 2.5 Mg/3 Ml Neb (Adult)) 2.5 mg INH [id number] PRN PRN Reason: Shortness Of Breath Albuterol/Ipratropium (Albuterol/Ipratropium 3 Ml Ampul) 3 ml INH [id number] KASH Chlorhexidine Gluconate (Chlorhexidine Gluconate 15 Ml Cup) 15 ml PO Q6HR [facility] Dexamethasone (Dexamethasone 10 Mg/Ml Vial) 6 mg IV NOW ONE Stop: 02/17/23 19:50 Last Admin: 02/17/23 20:07 Dose: 6 mg Documented By: Dexamethasone (Dexamethasone 10 Mg/Ml Vial) 6 mg IV DAILY [facility] Enoxaparin Sodium (Enoxaparin 40 Mg/0.4 Ml Syringe) 40 mg SUBCUT DAILY [facility] Famotidine (Famotidine 20 Mg/2 Ml Vial) 20 mg IV BID [facility] Last Admin: 02/17/23 21:13 Dose: Not Given Documented By: SB Furosemide (Furosemide 40 Mg/4 Ml Vial) 40 mg IV NOW ONE Stop: 02/17/23 17:16 Last Admin: 02/17/23 17:23 Dose: 40 mg Documented By: SB Furosemide (Furosemide 40 Mg Tablet) 80 mg PO DAILY [facility] Naloxone HCl 2 mg/ Sodium (Chloride) 500 mls @ 62.5 mls/hr IV TITRATE [facility]; Protocol Last Admin: 02/17/23 19:06 Dose: Not Given Documented By: SB Doxycycline Hyclate 100 mg/ (Sodium Chloride) 100 mls @ 100 mls/hr IV Q12H [facility] Last Admin: 02/17/23 21:13 Dose: Not Given Documented By: SB Ceftriaxone Sodium 1,000 mg/ (Sodium Chloride) 100 mls @ 200 mls/hr IV Q24H [facility] Last Admin: 02/17/23 21:14 Dose: Not Given Documented By: SB Methylprednisolone (Methylprednisolone 125 Mg/2 Ml Vial) 125 mg IV NOW ONE Stop: 02/17/23 17:04 Last Admin: 02/17/23 17:23 Dose: 125 mg Documented By: SB Metoprolol Tartrate (Metoprolol Ir 25 Mg Tablet) 25 mg PO BID [facility] Last Admin: 02/17/23 21:13 Dose: Not Given Documented By: SB Morphine Sulfate (Morphine 4 Mg/Ml Inj) 3 mg IV Q2HR [facility] Last Admin: 02/17/23 21:12 Dose: Not Given Documented By: SB Naloxone HCl (Naloxone 0.4 Mg/Ml Vial) 0.2 mg IV Q2MIN PRN PRN Reason: Opiate Reversal Non-Formulary Medication (Bupropion Hcl (Smoking Deter)) 150 mg PO BID [facility] Last Admin: 02/17/23 21:14 Dose: Not Given Documented By: SB Sucralfate (Sucralfate 1 Gm Tablet) 1 gm PO Q6HR [facility] Reevaluation(s) Reevaluation #1: At 22:45 pt asks me to return to room. has a friend Leisa who lives in [place] who he would want to be surrogate decision maker. NOW WANTS FULL TREATMENT/FULL CODE. Still does not want remdesivir. Reevaluation #2: at midnight, pt reports he is getting tired. Poor air movement, repeat gas 7.23/co2 102. Significant decline, pt will need to be intubated. He is advised of this and is in agreement. Consultations Consultation #1: D/W Dr Hernandez, accepts admission, aware pt is DNR/DNI Consultation #2: D/W Dr Neely zipper setter lockstitch [facility], accepts transfer awaiting bed Vital Signs Vital signs: Vital Signs - 8 hr 02/17/23 16:54 02/17/23 16:54 02/17/23 17:00 Temperature 98.8 F Pulse Rate 72 73 Respiratory Rate 26 H Blood Pressure 148/82 H 156/64 H Pulse Oximetry 92 91 Oxygen Delivery Method Non -Rebreather Oxygen Flow Rate 15 Fraction of Inspired Oxygen 02/17/23 17:00 02/17/23 17:30 02/17/23 17:30 Temperature Pulse Rate 71 66 Respiratory Rate Blood Pressure 156/90 H Pulse Oximetry 89 L 92 Oxygen Delivery Method Oxygen Flow Rate Fraction of Inspired Oxygen 02/17/23 17:57 02/17/23 18:00 02/17/23 18:07 Temperature Pulse Rate 65 Respiratory Rate Blood Pressure 156/90 H 110/59 L Pulse Oximetry 92 Oxygen Delivery Method Oxygen Flow Rate Fraction of Inspired Oxygen 60 02/17/23 18:07 02/17/23 18:30 02/17/23 18:31 Temperature Pulse Rate 65 67 Respiratory Rate 31 H Blood Pressure 111/52 L Pulse Oximetry 90 L 91 Oxygen Delivery Method Oxygen Flow Rate Fraction of Inspired Oxygen 02/17/23 18:31 02/17/23 19:00 02/17/23 19:00 Temperature Pulse Rate 65 63 Respiratory Rate 35 H 30 H Blood Pressure 129/62 Pulse Oximetry 92 91 Oxygen Delivery Method BiPAP Oxygen Flow Rate Fraction of Inspired Oxygen 02/17/23 19:30 02/17/23 19:30 02/17/23 20:00 Temperature Pulse Rate 62 63 Respiratory Rate 23 23 Blood Pressure 141/64 H Pulse Oximetry 92 90 L Oxygen Delivery Method Oxygen Flow Rate Fraction of Inspired Oxygen 02/17/23 20:01 02/17/23 20:01 02/17/23 20:30 Temperature Pulse Rate 62 62 Respiratory Rate 24 24 Blood Pressure 133/54 L Pulse Oximetry 90 L Oxygen Delivery Method Oxygen Flow Rate Fraction of Inspired Oxygen 02/17/23 21:00 02/17/23 21:00 02/17/23 21:30 Temperature Pulse Rate 65 Respiratory Rate Blood Pressure 127/58 L 117/69 Pulse Oximetry 93 Oxygen Delivery Method BiPAP Oxygen Flow Rate Fraction of Inspired Oxygen 02/17/23 21:30 02/17/23 22:00 02/17/23 22:30 Temperature Pulse Rate 63 64 65 Respiratory Rate 23 30 H Blood Pressure Pulse Oximetry 93 94 93 Oxygen Delivery Method BiPAP BiPAP BiPAP Oxygen Flow Rate Fraction of Inspired Oxygen 02/17/23 22:30 Temperature Pulse Rate Respiratory Rate Blood Pressure 109/62 Pulse Oximetry Oxygen Delivery Method Oxygen Flow Rate Fraction of Inspired Oxygen MDM - SOB/Dyspnea Differential Diagnosis Differential diagnosis: Likely acute exacerbation of chronic obstructive airways disease, congestive heart failure, community acquired pneumonia, pulmonary embolism and other (COVID-19 infection) Condition is:: Improved Discussed with:: Accepting physician at [facility] Medical Records Medical records narrative: Medical records at this facility are limited, I did review most recent ED notes Lab Data Lab results narrative: Blood gas shows pH of 7 III 0 8 with a pCO2 of 89.8 PO2 is 68. Bicarb is 45.1. Currently appears to have some decompensation based on acidosis. Troponin is normal, proBNP is elevated. 02/17/23 17:10 02/17/23 17:10 Labs: Lab Results 02/17/23 02/17/23 02/17/23 Range/Units 17:10 17:20 17:53 WBC 8.2 (4.5-11.0) X10^3/uL RBC 4.42 L (4.5-5.9) X10^6/uL Hgb 12.4 L (13.5-17.5) g/dL Hct 39.6 L (41-53) % MCV 89.8 (80-100) fL MCH 28.0 (26-34) PG MCHC 31.2 (30-36) % RDW 17.1 H (11.6-14.8) % Plt Count 203 (150-400) X10^3/uL Neut % (Auto) 82.2 H (50-75) % Lymph % (Auto) 9.9 L (25-40) % [place] % (Auto) 7.1 (3-14) % Eos % (Auto) 0.7 L (2-4) % Baso % (Auto) 0.1 (0-2) % Neut # (Auto) 6700 (4680-6315) /uL Lymph # (Auto) 800 L (8736-2968) /uL [place] # (Auto) 600 (0-900) /uL Eos # (Auto) 100 (0-450) /uL Baso # (Auto) 0 (0-100) /uL PT 13.4 H (9.4-12.5) SECONDS INR 1.2 (0.9-1.3) APTT 32 (25.1-36.5) SECONDS ABG Sample Site Right brachial ABG pH 7.30 L (7.35-7.45) ABG pCO2 89.8 H* (35-45) mmHg ABG pO2 68 L (80-100) mmHg ABG HCO3 45 H (23-27) mmol/L ABG Total CO2 48 H (23-27) mmol/L ABG O2 Saturation 90 L (95-100) % ABG Base Excess 19.0 H (-2-3) mmol/L VBG pH (7.33-7.43) VBG pCO2 (45-50) mmHg VBG pO2 (35-45) mmHg VBG HCO3 (24-28) mmol/L VBG Total CO2 (24-29) mmol/L VBG O2 Saturation (70-75) % VBG Base Excess (0-4) mmol/L FiO2 60 Sodium 136 L (137-145) mmol/L Potassium 4.2 (3.4-5.1) mmol/L Chloride 88 L (98-107) mmol/L Carbon Dioxide 45 H* (22-32) mmol/L BUN 27 H (9-20) mg/dL Creatinine 0.74 (0.66-1.25) mg/dL Estimated GFR > 60 (>60) mL/min BUN/Creatinine Ratio 36.5 H (6-22) Glucose 116 H (70-100) mg/dL Lactate 1.8 (0.7-2.1) mmol/L Calcium 9.3 (8.4-10.2) mg/dL Total Bilirubin 0.6 (0.2-1.3) mg/dL AST 19 (17-59) IU/L ALT 21 (<50) IU/L Alkaline Phosphatase 79 (38-126) U/L Total Creatine Kinase 23 L (55-170) U/L Troponin I 0.016 (0.01-0.034) ng/mL NT-Pro-B Natriuret Pep 781 H (<125) pg/mL Total Protein 7.6 (6.3-8.2) g/dL Albumin 3.8 (3.5-5.0) g/dL Globulin 3.8 (1.7-4.1) g/dL Albumin/Globulin Ratio 1.0 (1.0-2.8) Lipase 23 (23-300) U/L Chlamy pneumoniae PCR Not detected (Not Detect) Adenovirus (PCR) Not detected (Not Detect) B.parapertussis DNA PCR Not detected (Not Detecte) Coronavirus OC43 (PCR) Not detected (Not Detect) Coronavirus HKU1 (PCR) Not detected (Not Detect) Coronavirus 229E (PCR) Not detected (Not Detect) SARS-CoV-2 (PCR) Detected H (Not Detecte) Coronavirus NL63 (PCR) Not detected (Not Detect) Human Metapneumovir PCR Not detected (Not Detect) Influenza Type A (PCR) Not detected (Not Detect) Influenza Type B (PCR) Not detected (Not Detect) M. pneumoniae (PCR) Not detected (Not Detect) Parainfluenza 1 (PCR) Not detected (Not Detect) Parainfluenza 2 (PCR) Not detected (Not Detect) Parainfluenza 3 (PCR) Not detected (Not Detect) Parainfluenza 4 (PCR) Not detected (Not Detect) RSV (PCR) Not detected (Not Detect) Entero/Rhino (PCR) Not detected (Not Detect) 02/17/23 Range/Units 20:08 WBC (4.5-11.0) X10^3/uL RBC (4.5-5.9) X10^6/uL Hgb (13.5-17.5) g/dL Hct (41-53) % MCV (80-100) fL MCH (26-34) PG MCHC (30-36) % RDW (11.6-14.8) % Plt Count (150-400) X10^3/uL Neut % (Auto) (50-75) % Lymph % (Auto) (25-40) % [place] % (Auto) (3-14) % Eos % (Auto) (2-4) % Baso % (Auto) (0-2) % Neut # (Auto) (3269-4576) /uL Lymph # (Auto) (3956-5051) /uL [place] # (Auto) (0-900) /uL Eos # (Auto) (0-450) /uL Baso # (Auto) (0-100) /uL PT (9.4-12.5) SECONDS INR (0.9-1.3) APTT (25.1-36.5) SECONDS ABG Sample Site ABG pH (7.35-7.45) ABG pCO2 (35-45) mmHg ABG pO2 (80-100) mmHg ABG HCO3 (23-27) mmol/L ABG Total CO2 (23-27) mmol/L ABG O2 Saturation (95-100) % ABG Base Excess (-2-3) mmol/L VBG pH 7.34 (7.33-7.43) VBG pCO2 80.7 H (45-50) mmHg VBG pO2 31 L (35-45) mmHg VBG HCO3 44 H (24-28) mmol/L VBG Total CO2 46 H (24-29) mmol/L VBG O2 Saturation 51 L (70-75) % VBG Base Excess 18.0 H (0-4) mmol/L FiO2 55 Sodium (137-145) mmol/L Potassium (3.4-5.1) mmol/L Chloride (98-107) mmol/L Carbon Dioxide (22-32) mmol/L BUN (9-20) mg/dL Creatinine (0.66-1.25) mg/dL Estimated GFR (>60) mL/min BUN/Creatinine Ratio (6-22) Glucose (70-100) mg/dL Lactate (0.7-2.1) mmol/L Calcium (8.4-10.2) mg/dL Total Bilirubin (0.2-1.3) mg/dL AST (17-59) IU/L ALT (<50) IU/L Alkaline Phosphatase (38-126) U/L Total Creatine Kinase (55-170) U/L Troponin I (0.01-0.034) ng/mL NT-Pro-B Natriuret Pep (<125) pg/mL Total Protein (6.3-8.2) g/dL Albumin (3.5-5.0) g/dL Globulin (1.7-4.1) g/dL Albumin/Globulin Ratio (1.0-2.8) Lipase (23-300) U/L Chlamy pneumoniae PCR (Not Detect) Adenovirus (PCR) (Not Detect) B.parapertussis DNA PCR (Not Detecte) Coronavirus OC43 (PCR) (Not Detect) Coronavirus HKU1 (PCR) (Not Detect) Coronavirus 229E (PCR) (Not Detect) SARS-CoV-2 (PCR) (Not Detecte) Coronavirus NL63 (PCR) (Not Detect) Human Metapneumovir PCR (Not Detect) Influenza Type A (PCR) (Not Detect) Influenza Type B (PCR) (Not Detect) M. pneumoniae (PCR) (Not Detect) Parainfluenza 1 (PCR) (Not Detect) Parainfluenza 2 (PCR) (Not Detect) Parainfluenza 3 (PCR) (Not Detect) Parainfluenza 4 (PCR) (Not Detect) RSV (PCR) (Not Detect) Entero/Rhino (PCR) (Not Detect) ABG Data ABG results: Initial blood gases showed mild acidosis with a pH of 7.3 and a pCO2 in the 80s. This was slightly improved on 2nd blood gas on the 3rd blood gas patient had worsening of his acidosis and elevation and his pCO2. Following intubation, PA shows improving at 7.296 with a pCO2 of 81 both of these are improved compared with the last gas prior to intubation Imaging Data Chest x-ray: My Impression: Initial chest x-ray shows cardiomegaly, left basilar densities versus effusion Radiologist's Impression: Endotracheal tube in place with the distal tip projecting approximately 4.2 cm above the christopher. Nasogastric tube in place and appears appropriately position. Otherwise, stable cardiopulmonary evaluation with persistent left basilar airspace opacities. ECG Data Interpretation: EKG shows sinus rhythm at [address] segment changes poor R-wave progression no old EKG for comparison Treatment and disposition Social Determinants of Health that impact treatment or disposition: Active smoking Code Status and discussions:: Multiple code status discussions were held with the patient, he initially stated he wished to be DNI/DNR, later changed his mind to full treatment with intubation if necessary MDM Narrative Medical decision making narrative: 53-year-old man with a history of CHF presenting with hypercapnic and hypoxic respiratory failure. Did not have a fever or leukocytosis, not hypotensive I do not think the patient is septic. He is unvaccinated and tested positive for COVID. He refused remdesivir. He was given dexamethasone, he did not show an adequate response to noninvasive positive pressure ventilation and because of worsening hypercapnia and acidosis he was intubated. Following intubation there is a downward trend in PH and CO2. He is transferred to [facility] where they have Infectious Disease and pulmonology available. Critical Care Time Critical Care Time Critical Care Time: Yes (60 minutes) Total Critical Care Time: 60 Attestation: Patient required critical care for respiratory failure Discharge Plan Departure Prescriptions: No Action nifedipine 30 mg tablet extended release 30 mg PO DAILY fexofenadine 180 mg tablet 180 mg PO DAILY valacyclovir 500 mg Tablet 1,000 mg PO TID furosemide 80 mg tablet 80 mg PO DAILY aspirin 81 mg Tablet 81 mg PO DAILY albuterol sulfate 90 mcg/actuation HFA aerosol inhaler 1 puff INHALATION PRN PRN (Reason: Adequate Ventilation) Patient Comments: INHALE 2 PUFFS BY MOUTH INTO THE LUNGS EVERY 6 HOURS NEEDED FOR WHEEZING metoprolol tartrate 25 mg Tablet 25 mg PO BID potassium chloride 20 mEq Tablet Extended Release 20 meq PO DAILY bupropion HCl (smoking deter) 150 mg tablet extended release 12 hr 150 mg PO BID doxycycline monohydrate 100 mg capsule 100 mg PO BID Qty: 20 0RF Referrals: Miscellaneous,Doctor, [Primary Care Provider] -
[2023-02-17 18:26] LABS: Adenovirus Not Detected (Not Detect); B. parapertussis Not Detected (Not Detecte); Bordetella pertussis Not Detected (Not Detect); Chlamydophila pneumoniae Not Detected (Not Detect); Coronavirus 229E Not Detected (Not Detect); Coronavirus HKU1 Not Detected (Not Detect); Coronavirus NL 63 Not Detected (Not Detect); Coronavirus OC43 Not Detected (Not Detect); Human Metapneumovirus Not Detected (Not Detect); Human Rhinovirus/Enterovirus Not Detected (Not Detect); Influenza A Not Detected (Not Detect); Influenza B Not Detected (Not Detect); Mycoplasma pneumoniae Not Detected (Not Detect); Parainfluenza Virus 1 Not Detected (Not Detect); Parainfluenza Virus 2 Not Detected (Not Detect); Parainfluenza Virus 3 Not Detected (Not Detect); Parainfluenza Virus 4 Not Detected (Not Detect); Respiratory Syncytial Virus Not Detected (Not Detect); SARS- CoV-2 Detected (Not Detecte)
[2023-02-17 19:00] LABS: Blood Gas Collection Site Right Brachial; Fractionated Inspired Oxygen 60; HCO3 ABG 45 mmol/L (23-27); Oxygen Saturation ABG 90 % (95-100); PO2 ABG 68 mmHg (80-100); TCO2 ABG 48 mmol/L (23-27)
[2023-02-17 19:02] LABS: PCO2 ABG 89.8 mmHg (35-45)
--- NOTE | 2023-02-17 19:26 | RT ---
Pt refused HASEEB JACOBSON aware.
[2023-02-17] MEDS: DEXAMETHASONE 10 MG/ML VIAL 6 MG IV (20:07)
[2023-02-17 20:18] LABS: Fractionated Inspired Oxygen 55; HCO3 VBG 44 mmol/L (24-28); Oxygen Saturation VBG 51 % (70-75); PCO2 VBG 80.7 mmHg (45-50); PO2 VBG 31 mmHg (35-45); Total CO2 VBG 46 mmol/L (24-29); pH VBG 7.34 (7.33-7.43)
--- NOTE | 2023-02-17 21:35 | PC.NURSE ---
This RN checks on patient. Audible expiratory wheezing heard. Pt reports history of asthma and using an inhaler at home. Pt oxygen saturation at 93% at RA. RT called. Provider to be made aware.
[2023-02-17 23:53] LABS: pH VBG 7.24 (7.33-7.43)
[2023-02-17 23:54] LABS: HCO3 VBG 43 mmol/L (24-28); PCO2 VBG > 60.0 mmHg (45-50); PO2 VBG 52 mmHg (35-45)
[2023-02-17 23:55] LABS: Fractionated Inspired Oxygen 55; Oxygen Saturation VBG 76 % (70-75); Total CO2 VBG 46 mmol/L (24-29)
--- NOTE | 2023-02-17 23:59 | PC.NURSE ---
2359: This RN to check on patient. Patient is diaphoretic. Provider made aware. At provider direction patient is to be moved to room 1 in preparation for intubation. Charge nurse made aware.
[2023-02-18] VITALS (36 sets, daily range): BP systolic 97–177; BP diastolic 50–81; PULSE 55–81; RESP 0–45; O2SAT 84–100
[2023-02-18] MEDS: KETAMINE 500 MG/5 ML INJ 100 MG IV (00:21)
[2023-02-18] MEDS: ROCURONIUM 100 MG/10 ML VIAL 75 MG IV (00:22)
--- NOTE | 2023-02-18 00:49 | DI.RAD.S_ITS ---
PROCEDURE: XR CHEST 1V INDICATIONS: intubation TECHNIQUE: One view of the chest was acquired. COMPARISON: [facility], CR, XR CHEST 1V, 02/17/2023, 17:02. FINDINGS: Surgical changes and devices: Endotracheal tube tip projects approximately 4.2 cm above the christopher. Nasogastric tube is in place the distal tip coiled in the left upper quadrant in the expected location of the stomach. Lungs and pleura: Diffuse interstitial prominence. Persistent ill-defined opacity of the left lung base. No pneumothorax. Suspected small bilateral pleural effusions larger on the left. Mediastinum: Mediastinal contours appear normal. Heart size is enlarged. Bones and chest wall: No suspicious bony lesions. Overlying soft tissues appear unremarkable. IMPRESSION: Endotracheal tube in place with the distal tip projecting approximately 4.2 cm above the christopher. Nasogastric tube in place and appears appropriately position. Otherwise, stable cardiopulmonary evaluation with persistent left basilar airspace opacities. Dictated by: Lyle Mason M.D. on 02/18/2023 at 1:20 Approved by: Lyle Mason M.D. on 02/18/2023 at 1:22
[2023-02-18] MEDS: propofoL 1,000 MG/100 ML VIAL 5.443 MG IV (00:51)
[2023-02-18] MEDS: fentaNYL 100 MCG/2 ML INJ IV (00:59)
[2023-02-18] MEDS: fentaNYL 1,000 MCG in DEXTROSE 5% IN WATER 230 ML 31.751 MCG IV (01:20)
[2023-02-18] MEDS: GLYCOPYRROLATE 0.4 MG/2 ML VIAL 0.2 MG IV (01:23)
--- NOTE | 2023-02-18 01:26 | PC.NURSE ---
0020: Time out called for planned intubation. Patient name, and allergies confirmed. Provider Prema, RT, equipment engineering technician, GENERAL ASSIGNMENT REPORTER and this RN at bedside. 0025: Provider intubates patient with 7.5 ET tube at 23 at the lips and secured. 0043: Chest x-ray for confirmation. Provider Prema asks RT to move ET tube. ET tube now at 27 at the teeth and secured.
--- NOTE | 2023-02-18 01:53 | PC.NURSE ---
Jodie for MAR. IV propofol 1000mg in 100mls was started at 0034 at 5mcg/kg/min as per protocol and order.
[2023-02-18 02:09] LABS: Fractionated Inspired Oxygen 100; HCO3 VBG 40 mmol/L (24-28); Oxygen Saturation VBG 66 % (70-75); PO2 VBG 40 mmHg (35-45); Total CO2 VBG 42 mmol/L (24-29)
[2023-02-18] MEDS: propofoL 1,000 MG/100 ML VIAL 27.216 MG IV (03:11)
== END 2023-02-18 03:20 | disposition short-term general hospital (02) ==
PROVIDERS: Emergency Medicine; Emergency Provider Emergency Medicine; Referring Provider Emergency Medicine
DX: J96.22 Acute and chronic respiratory failure with hypercapnia (principal); J96.21 Acute and chronic respiratory failure with hypoxia; I50.9 Heart failure, unspecified; U07.1 COVID-19; Z99.81 Dependence on supplemental oxygen; F17.200 Nicotine dependence, unspecified, uncomplicated; I11.0 Hypertensive heart disease with heart failure
CPT/HCPCS: 31500; 36415; 36600; 71045; 80053; 82550; 82805; 83605; 83690; 83880; 84484; 85025; 85610; 85730; 87633; 93005; 93010; 94002; 94660; 94799; 96365; 96375; 96376; 99285; 99291; J1100; J1940; J2704; J2930; J3010

== ENCOUNTER 2024-03-21 09:58 | Inpatient (IN) | payer OTHER, MEDICAID, SELFPAY ==
[2023-02-18 00:55] VITALS: PULSE 62; RESP 20; O2SAT 100
[2024-03-21] VITALS (62 sets, daily range): BP systolic 72–138; BP diastolic 39–79; PULSE 62–124; RESP 12–42; TEMP 31–38.6; O2SAT 90–98; BMI 54.2
--- NOTE | 2024-03-21 10:06 | DI.RAD.S_ITS ---
PROCEDURE: XR CHEST 1V INDICATIONS: Shortness of breath TECHNIQUE: One view of the chest was acquired. COMPARISON: [facility], CR, XR CHEST 1V, 02/18/2023, 0:37. [facility], CR, XR CHEST 1V, 02/17/2023, 17:02. FINDINGS: Surgical changes and devices: None. Lungs and pleura: Low lung volumes are noted. This causes a crowded appearance to the lung markings and limits evaluation. Mild generalized interstitial prominence can be seen. No pneumothorax or large pleural effusion can be seen on this plain film study. Mediastinum: Mediastinal contours appear normal. Heart size is at the upper limits of normal. Bones and chest wall: No suspicious bony lesions. Age-appropriate bony degenerative changes are seen. Overlying soft tissues appear unremarkable. IMPRESSION: Low lung volumes seen, with interstitial prominence. Please consider artifact versus pulmonary edema. Dictated by: Bud Mantilla M.D. on 03/21/2024 at 9:41 Approved by: Bud Mantilla M.D. on 03/21/2024 at 9:42
--- NOTE | 2024-03-21 10:09 | EKG_ITS ---
[facility] [address] [place] [address] Test Date: 2024-03-21 Pat Name: Carlitos Patel Department: [facility] Room: Gender: Male [employer] Employee: MAYO : 1970 Requested By: Order Number: [id number] Reading MD: Michelet Terrell MD Measurements Intervals [place] Rate: 121 P: 64 [place]: 190 QRS: 62 QRSD: 98 T: 52 QT: 450 QTc: 639 Interpretive Statements Critical Test Result: Long QTc Sinus tachycardia Electronically Signed On 03-22-2024 8:47:31 PST by Michelet Terrell MD
[2024-03-21 10:19] LABS: Add Manual Diff / Slide Review NO; Basophils Absolute Auto 100 /uL (0-100); Eosinophils Absolute Auto 100 /uL (0-450); Eosinophils Percent Auto 0.8 % (2-4); Hematocrit 51.7 % (41-53); Hemoglobin 16.9 g/dL (13.5-17.5); Lymphocytes Absolute Auto 300 /uL (1100-4500); Lymphocytes Percent Auto 4.1 % (25-40); Mean Corpuscular HGB Conc 32.7 % (30-36); Mean Corpuscular Volume 85.5 fL (80-100); Monocytes Absolute Auto 0 /uL (0-900); Monocytes Percent Auto 0.3 % (3-14); Neutrophils Absolute Auto 7500 /uL (1500-7000); Neutrophils Percent Auto 93.8 % (50-75); Platelet Count 212 X10^3/uL (150-400); Red Blood Cell Count 6.04 X10^6/uL (4.5-5.9)
--- NOTE | 2024-03-21 10:21 | DI.CT.S_ITS ---
PROCEDURE: CT ABDOMEN PELVIS W CON INDICATIONS: RLQ pain TECHNIQUE: After the administration of intravenous contrast, axial sections acquired from the lung bases to the pubic symphysis. Coronal and sagittal reformats were performed. For radiation dose reduction, the following was used: automated exposure control, adjustment of mA and/or kV according to patient size. COMPARISON: [facility], CT, CT KIDNEY URETER BLADDER (KUB), 04/03/2022, 19:25. (Additional prior imaging is not available for review from the archive at the time of this dictation.) FINDINGS: Image quality: This study is limited by body habitus. This examination is limited by involuntary motion artifact. Lower Chest: Prominent vessels are partially seen within the left lower lobe. ABDOMEN: Liver: No solid mass. Diffuse fatty liver infiltration is noted. Gallbladder: Layering gallstones can be seen within the gallbladder. No additional CT findings of cholecystitis are seen. Biliary ducts: No biliary dilation. Pancreas: No ductal dilation. Spleen: Size is within normal limits. Adrenal Glands: No adrenal nodules. Kidneys and Ureters: No hydronephrosis. No solid mass. No complex renal cystic lesion which requires follow up. The right kidney is low lying and demonstrates a horizontal axis. Water density bilateral renal cysts are seen. Bowel and peritoneum: In this patient with this given history, scrutiny is given to the right lower quadrant. An enlarged, inflamed appendix is seen, with a thickened, hyperenhancing wall, measuring up to 1.8 cm. Surrounding inflammatory change can be seen. No free air or significant free fluid can be seen. No abscess collection is seen. No dilated loops of small bowel are seen. No significant colonic abnormality is seen. No significant colonic abnormality is seen. Note is made of hyperdense material within the colon. Please correlate with ingestion history, such as Pepto-Bismol. Ventral Wall: A mild periumbilical hernia is seen, containing fat. Abdominal Nodes: No retroperitoneal or mesenteric adenopathy by size criteria. Vessels: Aorta and inferior vena cava are normal in size. PELVIS: Pelvic Organs: Unremarkable. Bladder: No bladder wall thickening, accounting for underdistention. Pelvic Nodes: No enlarged lymph nodes. Miscellaneous: Bilateral fat containing inguinal hernias are seen. Bones: No aggressive osseous abnormality. S-shaped scoliotic curvature is seen. Age-appropriate bony degenerative changes are seen. IMPRESSION: Acute appendicitis, without findings of perforation or abscess. Prominent vessels can be seen within the left lower lobe. Please consider pulmonary AVM. Additional findings: Fatty liver infiltration Gallstones Mild fat containing periumbilical hernia Bilateral fat containing inguinal hernias Note: Case discussed by telephone with Dr. Prieto at 12:42 p.m. [place] time on March 21, 2024. Dictated by: Bud Mantilla M.D. on 03/21/2024 at 11:34 Approved by: Bud Mantilla M.D. on 03/21/2024 at 11:42
[2024-03-21 10:23] LABS: INR 1.2 (0.9-1.3); Prothrombin Time 13.2 SECONDS (9.4-12.5)
[2024-03-21] MEDS: ACETAMINOPHEN IV 1,000 MG/100 ML VIAL 400 MG IV (10:25)
[2024-03-21 10:27] LABS: Lactate (Lactic Acid) 2.7 mmol/L (0.7-2.1)
[2024-03-21 10:28] LABS: Alanine Aminotransferase 31 IU/L (<50); Albumin 4.4 g/dL (3.5-5.0); Albumin Globulin Ratio 1.3 (1.0-2.8); Alkaline Phosphatase 111 U/L (38-126); Aspartate Aminotransferase 31 IU/L (17-59); BUN Creatinine Ratio 17.9 (6-22); Bilirubin Total 1.9 mg/dL (0.2-1.3); Blood Urea Nitrogen 19 mg/dL (9-20); Calcium 8.6 mg/dL (8.4-10.2); Carbon Dioxide 26 mmol/L (22-32); Chloride 99 mmol/L (98-107); Estimated Glomerular Filt Rate > 60 mL/min (>60); Globulin 3.3 g/dL (1.7-4.1); Glucose 118 mg/dL (70-100); HEMOLYSIS < 15 (0-50); Potassium 3.9 mmol/L (3.4-5.1); Sodium 135 mmol/L (137-145); Total Protein 7.7 g/dL (6.3-8.2)
[2024-03-21 10:37] LABS: Creatine Kinase 61 U/L (55-170)
--- NOTE | 2024-03-21 10:38 | RT ---
Pt came into ER with moderate to severe dyspnea. Pt was on the medic CPAP unit and was still SOB. Pt was put on hospital Bipap and is tolerating well. Settings are 16/5,.4,20. Breath sounds are diminished.
[2024-03-21 10:39] LABS: NT-proBNP (BNP-Adult 18+) 46 pg/mL (<125); Troponin I < 0.012 ng/mL (0.01-0.034)
[2024-03-21] MEDS: METOCLOPRAMIDE 10 MG/2 ML INJ IV (10:43)
--- NOTE | 2024-03-21 10:48 | ED.SOB ---
HPI - SOB/Dyspnea General Chief Complaint: Shortness of Breath/Dyspnea Stated Complaint: SOB Time Seen by Provider: 03/21/24 10:20 History of Present Illness HPI Narrative: Patient 54-year-old male history of obesity, chronic respiratory failure, on 2 L nasal cannula. Presenting today with increasing shortness of breath and right lower quadrant pain. Patient reports that it started yesterday with right lower quadrant pain. EMS noted that he was slightly hypoxic among complaining of shortness of breath so CPAP was placed. We did a short trial of taking the CPAP off and putting him on his normal home O2 during that time oxygen level went down to 90% and he really felt like he could not breathe. He is noted to be febrile here of 101.4. Really complaining of difficulty breathing along with right lower quadrant pain. He is also having some chest tightness as well. Related Data Home Medications Medication Instructions Recorded Confirmed albuterol sulfate 90 mcg/actuation 1 puff inhalation PRN PRN Adequate 04/07/20 03/21/24 aerosol inhaler Ventilation aspirin 81 mg tablet 81 mg PO DAILY 04/07/20 03/21/24 furosemide 80 mg tablet 80 mg PO DAILY 04/07/20 03/21/24 metoprolol tartrate 25 mg tablet 25 mg PO BID 04/07/20 03/21/24 potassium chloride 20 mEq 20 meq PO DAILY 04/07/20 03/21/24 tablet,extended release atorvastatin 40 mg tablet 40 mg PO BEDTIME 03/21/24 03/21/24 losartan 25 mg tablet 25 mg PO DAILY 03/21/24 03/21/24 tirzepatide 2.5 mg/0.5 mL 2.5 mg SUBCUT QWEEK 03/21/24 03/21/24 subcutaneous pen injector tizanidine 4 mg tablet 4 mg PO BEDTIME PRN Spasms 03/21/24 03/21/24 Allergies Allergy/AdvReac Type Severity Reaction Status Date / Time No Known Drug Allergies Allergy Verified 04/03/22 16:11 Patient History Medical History Cellulitis Congestive heart failure (CHF) Hypertension Nonadherence to medication Obstructive sleep apnea Social History household members: none Smoking Status: Current every day smoker alcohol intake: never Smoking Status: Current every day smoker tobacco type: cigarettes alcohol intake frequency: holidays/special occasions only Exam Initial Vital Signs Initial Vital Signs: Vital Signs Pulse Rate 122 H 03/21/24 10:07 Respiratory Rate 42 H 03/21/24 10:07 Pulse Oximetry 94 03/21/24 10:07 GENERAL: Alert 54-year-old male morbid obesity appears moderate respiratory distress and in no acute distress. HEENT: Head atraumatic,EOMI, pupils reactive, face symmetric, moist mucous membranes CARDIOVASCULAR: Regular rate and rhythm without murmurs, rubs or gallops. RESPIRATORY: Tachypnea, decreased breath sounds bilaterally no rales or rhonchi ABDOMEN: Soft, obese tender right lower quadrant EXTREMITIES: Normal range of motion, no clubbing or edema. Neurovascularly intact NEUROLOGICAL: Alert and oriented x4.Normal gait and speech. Cranial nerves II through XII grossly intact. Moving all extremities SKIN: Warm, dry, no laceration, no petechiae, no rashes or lesions. Course Orders Ordered: ED Orders 03/21/24 10:21 CT abdomen pelvis w con Stat 03/21/24 10:28 CPK [Creatine Kinase] Stat Acetaminophen (Acetaminophen 325 Mg Tablet) 650 mg PO Q6H PRN PRN Reason: Fever/Mild Pain (1-3) Last Admin: 03/21/24 17:12 Dose: 650 mg Documented By: OWENK Albuterol (Albuterol 2.5 Mg/3 Ml Neb (Adult)) 2.5 mg INH Q2HRWA PRN PRN Reason: Shortness Of Breath Or Wheezing Albuterol (Albuterol 2.5 Mg/3 Ml Neb (Adult)) 2.5 mg INH Q4HRWA [facility] Last Admin: 03/21/24 17:35 Dose: Not Given Documented By: ERICF Atorvastatin Calcium (Atorvastatin 20 Mg Tablet) 40 mg PO BEDTIME [facility] Heparin Sodium (Porcine) (Heparin 5,000 Unit/Ml Vial) 5,000 unit SUBCUT BID KASH Hydromorphone HCl (Hydromorphone 0.5 Mg Inj) 0.5 mg IV Q2H PRN PRN Reason: Pain, Severe (7-10) Piperacillin Sod/Tazobactam (Sod 4.5 gm/ Sodium Chloride) 100 mls @ 25 mls/hr IV Q8H [facility] Last Admin: 03/21/24 17:20 Dose: 25 mls/hr Documented By: AMILCAR Dextrose/Sodium Chloride (Dextrose 5%-0.45% Ns) 1,000 mls @ 100 mls/hr IV CONT KASH Last Admin: 03/21/24 17:13 Dose: 100 mls/hr Documented By: AMILCAR Losartan Potassium (Losartan 25 Mg Tablet) 25 mg PO DAILY KASH Metoprolol Tartrate (Metoprolol Ir 25 Mg Tablet) 25 mg PO BID KASH Naloxone HCl (Naloxone 0.4 Mg/Ml Vial) 0.2 mg IV Q2MIN PRN PRN Reason: Opiate Reversal Ondansetron HCl (Ondansetron 4 Mg/2 Ml Inj) 4 mg IV Q4HR PRN PRN Reason: Nausea And Vomiting Tizanidine HCl (Tizanidine 4 Mg Tablet) 4 mg PO BEDTIME PRN PRN Reason: Spasms Discontinued Medications Albuterol/Ipratropium (Albuterol/Ipratropium 3 Ml Ampul) 3 ml INH NOW ONE Stop: 03/21/24 11:16 Last Admin: 03/21/24 12:28 Dose: 3 ml Documented By: MELISSA Acetaminophen ([facility]) 1,000 mg in 100 mls @ 400 mls/hr IV NOW ONE Stop: 03/21/24 10:35 Last Infusion: 03/21/24 10:53 Dose: Infused Documented By: Admin: 03/21/24 10:25 Dose: 400 mls/hr Documented By: JOVANNI Sodium Chloride (Normal Saline 0.9%) 1,000 mls @ 1,000 mls/hr IV BOLUS ONE Stop: 03/21/24 12:14 Last Infusion: 03/21/24 13:52 Dose: Infused Documented By: Admin: 03/21/24 12:30 Dose: 1,000 mls/hr Documented By: JOVANNI Piperacillin Sod/Tazobactam (Sod 4.5 gm/ Sodium Chloride) 100 mls @ 200 mls/hr IV NOW ONE Stop: 03/21/24 12:43 Last Infusion: 03/21/24 14:38 Dose: Infused Documented By: Admin: 03/21/24 13:51 Dose: 200 mls/hr Documented By: ANETA Piperacillin Sod/Tazobactam (Sod 4.5 gm/ Sodium Chloride) 100 mls @ 25 mls/hr IV Q8H [facility] Metoclopramide HCl (Metoclopramide 10 Mg/2 Ml Inj) 10 mg IV NOW ONE Stop: 03/21/24 10:37 Last Admin: 03/21/24 10:43 Dose: 10 mg Documented By: JOVANNI Vital Signs Vital signs: Vital Signs - 8 hr 03/21/24 11:18 03/21/24 11:20 03/21/24 11:33 Pulse Rate 115 H 121 H 117 H Respiratory Rate 30 H 32 H 27 H Blood Pressure 99/58 L 104/60 106/60 Pulse Oximetry 94 95 Oxygen Delivery Method Oxygen Flow Rate 03/21/24 11:35 03/21/24 11:59 03/21/24 12:25 Pulse Rate 114 H 113 H 99 H Respiratory Rate 25 H 30 H 24 Blood Pressure 107/56 L 94/55 L 88/59 L Pulse Oximetry 94 96 95 Oxygen Delivery Method BiPAP Oxygen Flow Rate 03/21/24 12:29 03/21/24 12:29 03/21/24 12:30 Pulse Rate 93 H 93 H 94 H Respiratory Rate 22 25 H 26 H Blood Pressure 83/57 L 87/58 L Pulse Oximetry 96 95 95 Oxygen Delivery Method Aerosol Mask Oxygen Flow Rate 8 03/21/24 12:36 03/21/24 12:37 03/21/24 12:41 Pulse Rate 94 H 92 H 93 H Respiratory Rate 27 H 24 24 Blood Pressure 92/57 L 110/58 L Pulse Oximetry 95 93 94 Oxygen Delivery Method Nasal Cannula Oxygen Flow Rate 4 03/21/24 12:55 03/21/24 13:00 03/21/24 13:30 Pulse Rate 99 H 99 H 97 H Respiratory Rate 31 H 30 H 27 H Blood Pressure 111/58 L 105/58 L 113/54 L Pulse Oximetry 94 93 Oxygen Delivery Method Oxygen Flow Rate MDM - SOB/Dyspnea Lab Data 03/21/24 10:07 03/21/24 10:07 Labs: Lab Results 03/21/24 03/21/24 Range/Units 10:07 10:28 WBC 8.0 (4.5-11.0) X10^3/uL RBC 6.04 H (4.5-5.9) X10^6/uL Hgb 16.9 (13.5-17.5) g/dL Hct 51.7 (41-53) % MCV 85.5 (80-100) fL MCH 28.0 (26-34) PG MCHC 32.7 (30-36) % RDW 15.0 H (11.6-14.8) % Plt Count 212 (150-400) X10^3/uL Neut % (Auto) 93.8 H (50-75) % Lymph % (Auto) 4.1 L (25-40) % [place] % (Auto) 0.3 L (3-14) % Eos % (Auto) 0.8 L (2-4) % Baso % (Auto) 1.0 (0-2) % Neut # (Auto) 7500 H (3238-9141) /uL Lymph # (Auto) 300 L (1227-8477) /uL [place] # (Auto) 0 (0-900) /uL Eos # (Auto) 100 (0-450) /uL Baso # (Auto) 100 (0-100) /uL PT 13.2 H (9.4-12.5) SECONDS INR 1.2 (0.9-1.3) Sodium 135 L (137-145) mmol/L Potassium 3.9 (3.4-5.1) mmol/L Chloride 99 (98-107) mmol/L Carbon Dioxide 26 (22-32) mmol/L BUN 19 (9-20) mg/dL Creatinine 1.06 (0.66-1.25) mg/dL Estimated GFR > 60 (>60) mL/min BUN/Creatinine Ratio 17.9 (6-22) Glucose 118 H (70-100) mg/dL Lactate 2.7 H (0.7-2.1) mmol/L Calcium 8.6 (8.4-10.2) mg/dL Total Bilirubin 1.9 H (0.2-1.3) mg/dL AST 31 (17-59) IU/L ALT 31 (<50) IU/L Alkaline Phosphatase 111 (38-126) U/L Total Creatine Kinase 61 (55-170) U/L Troponin I < 0.012 (0.01-0.034) ng/mL NT-Pro-B Natriuret Pep 46 (<125) pg/mL Total Protein 7.7 (6.3-8.2) g/dL Albumin 4.4 (3.5-5.0) g/dL Globulin 3.3 (1.7-4.1) g/dL Albumin/Globulin Ratio 1.3 (1.0-2.8) SARS-CoV-2 (PCR) Negative (Negative) Influenza A (RT-PCR) Flu a negative (NEGATIVE) Influenza B (RT-PCR) Flu b negative (NEGATIVE) RSV (PCR) Positive A (Negative) Imaging Data Chest x-ray: Radiologist's Impression: PROCEDURE: XR CHEST 1V INDICATIONS: Shortness of breath TECHNIQUE: One view of the chest was acquired. COMPARISON: [facility], CR, XR CHEST 1V, 02/18/2023, 0:37. [facility], CR, XR CHEST 1V, 02/17/2023, 17:02. FINDINGS: Surgical changes and devices: None. Lungs and pleura: Low lung volumes are noted. This causes a crowded appearance to the lung markings and limits evaluation. Mild generalized interstitial prominence can be seen. No pneumothorax or large pleural effusion can be seen on this plain film study. Mediastinum: Mediastinal contours appear normal. Heart size is at the upper limits of normal. Bones and chest wall: No suspicious bony lesions. Age-appropriate bony degenerative changes are seen. Overlying soft tissues appear unremarkable. IMPRESSION: Low lung volumes seen, with interstitial prominence. Please consider artifact versus pulmonary edema. Dictated by: Bud Mantilla M.D. on 03/21/2024 at 9:41 CT scan - abdomen/pelvis: Radiologist's Impression: PROCEDURE: CT ABDOMEN PELVIS W CON INDICATIONS: RLQ pain TECHNIQUE: After the administration of intravenous contrast, axial sections acquired from the lung bases to the pubic symphysis. Coronal and sagittal reformats were performed. For radiation dose reduction, the following was used: automated exposure control, adjustment of mA and/or kV according to patient size. COMPARISON: [facility], CT, CT KIDNEY URETER BLADDER (KUB), 04/03/2022, 19:25. (Additional prior imaging is not available for review from the archive at the time of this dictation.) FINDINGS: Image quality: This study is limited by body habitus. This examination is limited by involuntary motion artifact. Lower Chest: Prominent vessels are partially seen within the left lower lobe. ABDOMEN: Liver: No solid mass. Diffuse fatty liver infiltration is noted. Gallbladder: Layering gallstones can be seen within the gallbladder. No additional CT findings of cholecystitis are seen. Biliary ducts: No biliary dilation. Pancreas: No ductal dilation. Spleen: Size is within normal limits. Adrenal Glands: No adrenal nodules. Kidneys and Ureters: No hydronephrosis. No solid mass. No complex renal cystic lesion which requires follow up. The right kidney is low lying and demonstrates a horizontal axis. Water density bilateral renal cysts are seen. Bowel and peritoneum: In this patient with this given history, scrutiny is given to the right lower quadrant. An enlarged, inflamed appendix is seen, with a thickened, hyperenhancing wall, measuring up to 1.8 cm. Surrounding inflammatory change can be seen. No free air or significant free fluid can be seen. No abscess collection is seen. No dilated loops of small bowel are seen. No significant colonic abnormality is seen. No significant colonic abnormality is seen. Note is made of hyperdense material within the colon. Please correlate with ingestion history, such as Pepto-Bismol. Ventral Wall: A mild periumbilical hernia is seen, containing fat. Abdominal Nodes: No retroperitoneal or mesenteric adenopathy by size criteria. Vessels: Aorta and inferior vena cava are normal in size. PELVIS: Pelvic Organs: Unremarkable. Bladder: No bladder wall thickening, accounting for underdistention. Pelvic Nodes: No enlarged lymph nodes. Miscellaneous: Bilateral fat containing inguinal hernias are seen. Bones: No aggressive osseous abnormality. S-shaped scoliotic curvature is seen. Age-appropriate bony degenerative changes are seen. IMPRESSION: Acute appendicitis, without findings of perforation or abscess. Prominent vessels can be seen within the left lower lobe. Please consider pulmonary AVM. Additional findings: Fatty liver infiltration Gallstones Mild fat containing periumbilical hernia Bilateral fat containing inguinal hernias Note: Case discussed by telephone with Dr. Prieto at 12:42 p.m. [place] time on March 21, 2024. Dictated by: Bud Mantilla M.D. on 03/21/2024 at 11:34 ECG Data Attestation: I personally reviewed and interpreted this ECG as follows: Interpretation: Sinus rhythm rate 121 AK interval 190 QRS 98 prolonged QTC noted at 639 previous EKGs shows a QTC of 430 02/17/2023 MDM Narrative Medical decision making narrative: MDM CC: Shortness of breath and right lower quadrant pain Complicating co-morbidities: Morbid obesity chronic O2, chf Medical records reviewed: Previous ED visits Differential considered: CHF viral illness appendicitis nephrolithiasis cholelithiasis Exam documented above, pertinent findings include: 54-year-old male morbid obesity, does appear some moderate shortness of breath requiring BiPAP he is quite tender in the right lower quadrant minimal tenderness right upper quadrant no significant epigastric pain Lab Test results independently reviewed as above. Pertinent findings: +RSV WBC 8.0 hemoglobin 16 point 51.7, platelets 212 Sodium 135 potassium 3.9 chloride 99 carbon dioxide 26 BUN 19 creatinine 1.0 Lactate 2.7-->2.8 Bilirubin 1.9 AST 31 ALT 31 alk-phos 111 Troponin negative BNP 46 Independently reviewed EKG as above Sinus tachycardia with prolonged QTC at 639 no ischemia Imaging studies independently reviewed: Chest x-ray no acute process CT Abdomen, appendicitis without appendicolith abscess or perforation Consultations: Dr. Mercado, Surgery, updated patient's symptoms test results agrees with antibiotics Dr. Carlson updated on symptoms test results Treatments: Zosyn Re-evaluations: Patient initially placed on BiPAP because he was having some chest heaviness and difficulty breathing. He is chronically on home O2. Never truly hypoxic, he did become slightly diaphoretic however that was after he was given Tylenol, so I do suspect that was his fever breaking. Respiratory increased settings on BiPAP to a peak of 7 shortly thereafter blood pressure dropped into the 80s. He was given a 500 cc bolus of fluids. Initially fluid was held due to possible congestive heart failure exacerbation. However patient responded to small amount of fluids along with changing the BiPAP. Eventually patient was taken off BiPAP to go to CT and he tolerated it well he was sitting upright in a wheelchair on his home O2 no longer requiring BiPAP CT does confirm uncomplicated diverticulitis. Discussion: 54-year-old male morbidly obese chronically on O2 presenting today with increasing shortness of breath and right lower quadrant pain. Initially thought to have some CHF exacerbation however he quickly turned around. He had a brief episode of hypotension thought to be due to increased PEEP of 7 on BiPAP although unclear. Nonetheless he weaned off BiPAP fairly quickly and did better sitting up right. He was found to be positive for RSV no significant evidence of congestive heart failure. BNP is 46 difficult to tell if he is fluid overloaded but chest x-ray was clear. Lasix was not given. CT does show appendicitis uncomplicated. Patient is not likely a great surgical candidate surgery agrees with conservative measures IV antibiotics follow Critical Care Time Critical Care Time Critical Care Time: Yes Total Critical Care Time: 31 Attestation: The high probability of a clinically significant, sudden or life threatening deterioration of the [cardiovascular] system(s) required my full and direct attention, intervention and personal management. The aggregate critical care time was 31 minutes. This time is in addition to time spent performing reported procedures but includes the following: [x] Data Review and interpretation [x] Patient assessment and monitoring of vital signs [x] Documentation [x] Medication orders and management Discharge Plan Departure Patient Disposition: Admitted As Inpatient Clinical Impression: Acute appendicitis with localized peritonitis without perforation, Respiratory syncytial virus (RSV) infection Admit Date/Time: 03/21/24 13:41 Admit Provider: Johnny Carlson V
--- NOTE | 2024-03-21 11:00 | RT ---
BIPAP SETTINGS ADJUSTED ACCORDING TO PT NEED/COMFORT, PER RT PROTOCOL.
[2024-03-21 11:01] LABS: COVID-19 CEPHEID 4-PLEX PCR Negative (Negative); Influenza A - CEPHEID Flu A NEGATIVE (NEGATIVE); Influenza B - CEPHEID Flu B NEGATIVE (NEGATIVE); Respiratory Syncytial Virus POSITIVE (Negative)
[2024-03-21 11:49] LABS: Reflexed Lactate in 2 Hours Y
[2024-03-21] MEDS: ALBUTEROL/IPRATROPIUM 3 ML AMPUL INH (12:28)
[2024-03-21] MEDS: SODIUM CHLORIDE 0.9% 1,000 ML 1000 ML IV (12:30)
--- NOTE | 2024-03-21 13:45 | PM.CN ---
History of Present Illness Consult details Date Patient Seen: 03/21/24 Time Patient Seen: 13:45 Chief complaint: SOB Reason for consult: Concern for appendicitis on CT scan Requesting provider: Lanie Prieto Narrative: 54-year-old white male with 1 day of right lower quadrant pain and increased oxygen requirement. He is on 2 L oxygen at home and is now on 4 L in the ER. He weighs 400 lb with a BMI of 54. CT scan shows question of early appendicitis without any evidence of fecalith or perforation. He denies nausea or vomiting. Meds Home Medications and Allergies Home Medications Medication Instructions Recorded Confirmed Type albuterol sulfate 90 mcg/actuation 1 puff inhalation PRN PRN Adequate 04/07/20 04/03/22 History aerosol inhaler Ventilation aspirin 81 mg tablet 81 mg PO DAILY 04/07/20 04/03/22 History bupropion HCl (smoking deter) 150 150 mg PO BID 04/07/20 04/03/22 History mg tablet,12 hr sustained-release(smoking deterrent) fexofenadine 180 mg tablet 180 mg PO DAILY 04/07/20 04/03/22 History furosemide 80 mg tablet 80 mg PO DAILY 04/07/20 04/03/22 History metoprolol tartrate 25 mg tablet 25 mg PO BID 04/07/20 04/03/22 History nifedipine 30 mg tablet,extended 30 mg PO DAILY 04/07/20 04/03/22 History release potassium chloride 20 mEq 20 meq PO DAILY 04/07/20 04/03/22 History tablet,extended release valacyclovir 500 mg tablet 1,000 mg PO TID 04/07/20 04/03/22 History doxycycline monohydrate 100 mg 100 mg PO BID #20 caps 06/27/22 Rx capsule Allergies Allergy/AdvReac Type Severity Reaction Status Date / Time No Known Drug Allergies Allergy Verified 04/03/22 16:11 Review of Systems Constitutional Constitutional: Denies anorexia, Denies chills, Denies excessive sweating and Denies weight loss Eyes Eyes: Reports system reviewed and no additional complaints, except as documented ENT Ears, Nose, Mouth, and Throat: Yes system reviewed and no additional complaints, except as documented Cardiovascular Cardiovascular: Reports system reviewed and no additional complaints, except as documented, Reports dyspnea and Reports dyspnea on exertion Respiratory Respiratory: Reports dyspnea and Reports dyspnea on exertion Gastrointestinal Gastrointestinal: Reports abdominal pain, Denies belching, Denies melena, Denies bloating, Denies hematochezia, Denies change in bowel habits, Denies constipation, Denies heartburn and Denies nausea Genitourinary Genitourinary: Reports system reviewed and no additional complaints, except as documented Musculoskeletal Musculoskeletal: Reports system reviewed and no additional complaints, except as documented Integumentary/Breasts Skin/Breast: Reports system reviewed and no additional complaints, except as documented Neurologic Neurologic: Reports system reviewed and no additional complaints, except as documented Psychiatric Psychiatric: Reports system reviewed and no additional complaints, except as documented Endocrine Endocrine: Reports system reviewed and no additional complaints, except as documented and Denies excessive sweating Hematologic/Lymphatic Hematologic/Lymphatic: Reports system reviewed and no additional complaints, except as documented Allergic/Immunologic Allergic/Immunologic: Reports system reviewed and no additional complaints, except as documented Exam Vital Signs (past 8 hours): - 03/21/24 10:07 03/21/24 10:12 03/21/24 10:30 Temperature 101.5 F H Pulse Rate 122 H 122 H 121 H Respiratory Rate 42 H 26 H 32 H Blood Pressure 126/59 L 127/57 L Pulse Oximetry 94 94 97 Oxygen Delivery Method CPAP Oxygen Flow Rate 13 Fraction of Inspired Oxygen 03/21/24 10:32 03/21/24 10:57 03/21/24 10:58 Temperature Pulse Rate 124 H Respiratory Rate 32 H Blood Pressure 126/59 L 99/66 99/66 Pulse Oximetry 94 Oxygen Delivery Method Oxygen Flow Rate Fraction of Inspired Oxygen 40 30 03/21/24 11:00 03/21/24 11:02 03/21/24 11:03 Temperature Pulse Rate 120 H 119 H 118 H Respiratory Rate 33 H 35 H 34 H Blood Pressure 89/52 L 85/49 L 82/47 L Pulse Oximetry 94 94 93 Oxygen Delivery Method Oxygen Flow Rate Fraction of Inspired Oxygen 03/21/24 11:09 03/21/24 11:18 03/21/24 11:20 Temperature Pulse Rate 116 H 115 H 121 H Respiratory Rate 32 H 30 H 32 H Blood Pressure 97/54 L 99/58 L 104/60 Pulse Oximetry 93 94 Oxygen Delivery Method Oxygen Flow Rate Fraction of Inspired Oxygen 03/21/24 11:33 03/21/24 11:35 03/21/24 11:59 Temperature Pulse Rate 117 H 114 H 113 H Respiratory Rate 27 H 25 H 30 H Blood Pressure 106/60 107/56 L 94/55 L Pulse Oximetry 95 94 96 Oxygen Delivery Method BiPAP Oxygen Flow Rate Fraction of Inspired Oxygen 03/21/24 12:29 03/21/24 12:37 Temperature Pulse Rate 93 H 92 H Respiratory Rate 22 24 Blood Pressure Pulse Oximetry 96 93 Oxygen Delivery Method Aerosol Mask Nasal Cannula Oxygen Flow Rate 8 4 Fraction of Inspired Oxygen Fraction of Inspired Oxygen 30 Oxygen Delivery Method Nasal Cannula Oxygen Flow Rate 4 Const General: cooperative and comfortable Nutritional Appearance: obese Orientation: alert, awake and oriented x3 HENMT Head: normocephalic and atraumatic Eyes General: appearance normal, both eyes and all related structures Neck Neck: normal visual inspection Chest Chest: normal inspection of the chest Resp Effort & Inspection: able to speak in complete sentences, labored and tachypneic Cardio Rate: tachycardic GI Palpation: soft, No firm, No guarding and tender (Right lower quadrant) Objective Labs 03/21/24 10:07 03/21/24 10:07 Labs: Laboratory Results - last 24 hr 03/21/24 03/21/24 10:07 10:28 WBC 8.0 RBC 6.04 H Hgb 16.9 Hct 51.7 MCV 85.5 MCH 28.0 MCHC 32.7 RDW 15.0 H Plt Count 212 Neut % (Auto) 93.8 H Lymph % (Auto) 4.1 L [place] % (Auto) 0.3 L Eos % (Auto) 0.8 L Baso % (Auto) 1.0 Neut # (Auto) 7500 H Lymph # (Auto) 300 L [place] # (Auto) 0 Eos # (Auto) 100 Baso # (Auto) 100 PT 13.2 H INR 1.2 Sodium 135 L Potassium 3.9 Chloride 99 Carbon Dioxide 26 BUN 19 Creatinine 1.06 Estimated GFR > 60 BUN/Creatinine Ratio 17.9 Glucose 118 H Lactate 2.7 H Calcium 8.6 Total Bilirubin 1.9 H AST 31 ALT 31 Alkaline Phosphatase 111 Total Creatine Kinase 61 Troponin I < 0.012 NT-Pro-B Natriuret Pep 46 Total Protein 7.7 Albumin 4.4 Globulin 3.3 Albumin/Globulin Ratio 1.3 SARS-CoV-2 (PCR) Negative Influenza A (RT-PCR) Flu a negative Influenza B (RT-PCR) Flu b negative RSV (PCR) Positive A [facility] Medical History Obstructive sleep apnea Cellulitis Nonadherence to medication Hypertension Congestive heart failure (CHF) Tobacco & Substance Use Smoking Status: Current every day smoker Assessment & Plan Assessment and plan (1) Acute appendicitis with localized peritonitis without perforation: Status: Acute Assessment & Plan narrative: Given his significant comorbidities and the lack of fecalith or abscess, antibiotic management of appendicitis is appropriate in this case. If he fails antibiotic management, he would be a high risk of cardiopulmonary complications from laparoscopic appendectomy. Time-Based Coding :: [TOTAL MINUTES] spent with patient and on the chart (including review of chart, obtaining history, exam, reviewing outside data, placing orders, documenting exam and treatment plan, and counseling patient) on [DATE]. PROFEE Charge Codes Inpatient or Observation consultation: 97294
[2024-03-21] MEDS: PIPERACILLIN/TAZO 4.5 GM in SODIUM CHLORIDE 0.9% 100 ML IV ×2 (13:51→17:20)
[2024-03-21 14:15] LABS: Lactate 2HR (Lactic Acid Rflx) 2.8 mmol/L (0.7-2.1)
--- NOTE | 2024-03-21 16:25 | PM.HP.1 ---
History of Present Illness History of Present Illness Date Patient Seen: 03/21/24 Time Patient Seen: 15:05 Date of Onset of Symptoms: 03/20/24 Chief complaint: SOB Narrative: 54-year-old man under the primary care of Dr. Manuel Kruger reports acute onset right lower quadrant pain yesterday morning. Pain persisted and worsened and he presented to the emergency department today with CT imaging showing early appendicitis without evidence of fecalith or perforation. While in the emergency department he noted increasing oxygen requirement from his usual 2 L nasal cannula at home to 4 L in the emergency department, and temporarily required placement of BiPAP and non-rebreather mask. He was observed and subsequently this transient hypoxemia resolved and he was resumed on his usual nasal cannula oxygen. Surgery consulted and recommended IV antibiotic management given high risk of laparoscopic appendectomy in the setting of his underlying respiratory condition. He uses a Trilogy home ventilator device. He has no history of diabetes. He tested positive for RSV in the emergency department. He was intubated on mechanical ventilation with a COVID infection in 02/2023. [facility] Medical History Cellulitis Congestive heart failure (CHF) Hypertension Nonadherence to medication Obstructive sleep apnea Social History household members: none Smoking Status: Current every day smoker alcohol intake: never Meds Home Medications and Allergies Home Medications Medication Instructions Recorded Confirmed Type albuterol sulfate 90 mcg/actuation 1 puff inhalation PRN PRN Adequate 04/07/20 03/21/24 History aerosol inhaler Ventilation aspirin 81 mg tablet 81 mg PO DAILY 04/07/20 03/21/24 History furosemide 80 mg tablet 80 mg PO DAILY 04/07/20 03/21/24 History metoprolol tartrate 25 mg tablet 25 mg PO BID 04/07/20 03/21/24 History potassium chloride 20 mEq 20 meq PO DAILY 04/07/20 03/21/24 History tablet,extended release atorvastatin 40 mg tablet 40 mg PO BEDTIME 03/21/24 03/21/24 History losartan 25 mg tablet 25 mg PO DAILY 03/21/24 03/21/24 History tirzepatide 2.5 mg/0.5 mL 2.5 mg SUBCUT QWEEK 03/21/24 03/21/24 History subcutaneous pen injector tizanidine 4 mg tablet 4 mg PO BEDTIME PRN Spasms 03/21/24 03/21/24 History Allergies Allergy/AdvReac Type Severity Reaction Status Date / Time No Known Drug Allergies Allergy Verified 04/03/22 16:11 Review of Systems Review of Systems ROS: Yes All systems reviewed with the patient and are negative except as otherwise documented Exam Vital Signs (past 8 hours): - 03/21/24 10:07 03/21/24 10:12 03/21/24 10:30 Temperature 101.5 F H Pulse Rate 122 H 122 H 121 H Respiratory Rate 42 H 26 H 32 H Blood Pressure 126/59 L 127/57 L Pulse Oximetry 94 94 97 Oxygen Delivery Method CPAP Oxygen Flow Rate 13 Fraction of Inspired Oxygen 03/21/24 10:32 03/21/24 10:57 03/21/24 10:58 Temperature Pulse Rate 124 H Respiratory Rate 32 H Blood Pressure 126/59 L 99/66 99/66 Pulse Oximetry 94 Oxygen Delivery Method Oxygen Flow Rate Fraction of Inspired Oxygen 40 30 03/21/24 11:00 03/21/24 11:02 03/21/24 11:03 Temperature Pulse Rate 120 H 119 H 118 H Respiratory Rate 33 H 35 H 34 H Blood Pressure 89/52 L 85/49 L 82/47 L Pulse Oximetry 94 94 93 Oxygen Delivery Method Oxygen Flow Rate Fraction of Inspired Oxygen 03/21/24 11:09 03/21/24 11:18 03/21/24 11:20 Temperature Pulse Rate 116 H 115 H 121 H Respiratory Rate 32 H 30 H 32 H Blood Pressure 97/54 L 99/58 L 104/60 Pulse Oximetry 93 94 Oxygen Delivery Method Oxygen Flow Rate Fraction of Inspired Oxygen 03/21/24 11:33 03/21/24 11:35 03/21/24 11:59 Temperature Pulse Rate 117 H 114 H 113 H Respiratory Rate 27 H 25 H 30 H Blood Pressure 106/60 107/56 L 94/55 L Pulse Oximetry 95 94 96 Oxygen Delivery Method BiPAP Oxygen Flow Rate Fraction of Inspired Oxygen 03/21/24 12:25 03/21/24 12:29 03/21/24 12:29 Temperature Pulse Rate 99 H 93 H 93 H Respiratory Rate 24 22 25 H Blood Pressure 88/59 L 83/57 L Pulse Oximetry 95 96 95 Oxygen Delivery Method Aerosol Mask Oxygen Flow Rate 8 Fraction of Inspired Oxygen 03/21/24 12:30 03/21/24 12:36 03/21/24 12:37 Temperature Pulse Rate 94 H 94 H 92 H Respiratory Rate 26 H 27 H 24 Blood Pressure 87/58 L 92/57 L Pulse Oximetry 95 95 93 Oxygen Delivery Method Nasal Cannula Oxygen Flow Rate 4 Fraction of Inspired Oxygen 03/21/24 12:41 03/21/24 12:55 03/21/24 13:00 Temperature Pulse Rate 93 H 99 H 99 H Respiratory Rate 24 31 H 30 H Blood Pressure 110/58 L 111/58 L 105/58 L Pulse Oximetry 94 94 Oxygen Delivery Method Oxygen Flow Rate Fraction of Inspired Oxygen 03/21/24 13:30 03/21/24 13:51 03/21/24 13:55 Temperature 99.0 F Pulse Rate 97 H 87 87 Respiratory Rate 27 H 24 Blood Pressure 113/54 L 101/65 Pulse Oximetry 93 92 94 Oxygen Delivery Method Nasal Cannula Oxygen Flow Rate 4 Fraction of Inspired Oxygen 03/21/24 13:55 03/21/24 14:00 03/21/24 14:00 Temperature 98.7 F Pulse Rate 90 Respiratory Rate 24 Blood Pressure 101/55 L 129/63 Pulse Oximetry 94 Oxygen Delivery Method Nasal Cannula Oxygen Flow Rate 4 Fraction of Inspired Oxygen Fraction of Inspired Oxygen 30 Oxygen Delivery Method Nasal Cannula Oxygen Flow Rate 4 Narrative Exam Narrative: GENERAL: This is a very pleasant, obese male patient, in no apparent distress, on 4 L nasal cannula with saturation 4%. HEAD: Atraumatic. Normocephalic. No temporal or scalp tenderness. EYES: Pupils equal round and reactive. Extraocular motions intact. No scleral icterus. No injection or drainage. ENT: Mucous membranes pink and moist. NECK: Trachea midline. No JVD, bruits or lymphadenopathy. Supple, nontender, no meningeal signs. CARDIOVASCULAR: Regular rate and rhythm without murmurs, gallops, or rubs. RESPIRATORY: Clear to auscultation. GASTROINTESTINAL: Abdomen soft, obese, moderate right lower quadrant tenderness, no guarding, rebound or rigidity. EXTREMITIES: 1+ edema with stasis changes. BACK: Nontender without deformity or crepitance. No flank tenderness. NEUROLOGIC: Alert, oriented, speech fluent, full upper and lower motor strength, no focal deficits evident. DERMATOLOGIC: No rashes or skin lesions. Objective ECG Impression: Sinus tachycardia at 121 beats per minute, normal intervals, no ischemic changes Imaging CT scan - abdomen: Radiologist's impression: Acute appendicitis, without findings of perforation or abscess. Prominent vessels can be seen within the left lower lobe. Please consider pulmonary AVM. Additional findings: Fatty liver infiltration Gallstones Mild fat containing periumbilical hernia Bilateral fat containing inguinal hernias Chest x-ray: Radiologist's impression: Low lung volumes seen, with interstitial prominence. Please consider artifact versus pulmonary edema. Labs 03/21/24 10:07 03/21/24 10:07 Labs: Laboratory Results - last 24 hr 03/21/24 03/21/24 03/21/24 10:07 10:28 13:45 WBC 8.0 RBC 6.04 H Hgb 16.9 Hct 51.7 MCV 85.5 MCH 28.0 MCHC 32.7 RDW 15.0 H Plt Count 212 Neut % (Auto) 93.8 H Lymph % (Auto) 4.1 L [place] % (Auto) 0.3 L Eos % (Auto) 0.8 L Baso % (Auto) 1.0 Neut # (Auto) 7500 H Lymph # (Auto) 300 L [place] # (Auto) 0 Eos # (Auto) 100 Baso # (Auto) 100 PT 13.2 H INR 1.2 Sodium 135 L Potassium 3.9 Chloride 99 Carbon Dioxide 26 BUN 19 Creatinine 1.06 Estimated GFR > 60 BUN/Creatinine Ratio 17.9 Glucose 118 H Lactate 2.7 H 2.8 H Calcium 8.6 Total Bilirubin 1.9 H AST 31 ALT 31 Alkaline Phosphatase 111 Total Creatine Kinase 61 Troponin I < 0.012 NT-Pro-B Natriuret Pep 46 Total Protein 7.7 Albumin 4.4 Globulin 3.3 Albumin/Globulin Ratio 1.3 SARS-CoV-2 (PCR) Negative Influenza A (RT-PCR) Flu a negative Influenza B (RT-PCR) Flu b negative RSV (PCR) Positive A Assessment & Plan Assessment & Plan narrative: 1. Acute appendicitis. Continue IV Zosyn 4.5 mg IV q.8 hours. Surgical follow-up for management. High risk for surgical management. 2. Congestive heart failure. Prior history unavailable. History of chronic hypercarbic respiratory failure on Trilogy device at home. Monitor in ICU with BiPAP. 3. Acute RSV infection. Symptomatic care. 4. Acute on chronic hypoxic respiratory failure. Likely due to RSV and reduced abdominal excursion due to 1. Monitor in ICU setting as above. 5. Sepsis due to the above with elevated serum lactate, tachycardia, respiratory failure, Hypertension. Continue routine medication. Hold diuretics. 6. Hyperlipidemia. Continue routine medication. 7. DVT prophylaxis: Subcutaneous heparin 8. Code status: Full code Plan: -IV Zosyn -surgery consultation -BiPAP in ICU setting -supplemental oxygen -supportive care -subcutaneous heparin The patient is admitted inpatient status as he will require at least 2 midnights of inpatient level care. Quality VTE Deep Vein Thrombosis/Pulmonary Embolism Present on Admission: No MIPS - Admit I confirm the patient?s Advance Care Plan is present, Code status is documented, Surrogate decision maker is in patient?s record [If Yes, STOP here]: Yes MIPS - Meds 'Current medications' to include all prescriptions, [id number] products, herbals, cannabis/cannabidiol products, and vitamin/mineral/dietary (nutritional) supplements. I have utilized all available resources to obtain, update, or review the patient?s current medications. [If Yes, STOP here]: Yes PROFEE Charge Codes Initial inpatient/observation care: 42791
--- NOTE | 2024-03-21 17:07 | PC.NURSE ---
MOVED PATIENT TO 226 FOR ICU ORDER AND TO GO ON HIS BIPAP. CURRENTLY ON 4L
[2024-03-21] MEDS: ACETAMINOPHEN 325 MG TABLET 650 MG PO (17:12)
[2024-03-21] MEDS: DEXTROSE 5%-0.45% NS 1,000 ML 100 ML IV (17:13)
[2024-03-21] MEDS: ALBUTEROL 2.5 MG/3 ML NEB (ADULT) INH (20:44)
[2024-03-21] MEDS: HEPARIN 5,000 UNIT/ML VIAL 5000 UNIT SUBCUT (21:24)
[2024-03-21] MEDS: SODIUM CHLORIDE 0.9% 500 ML 1000 ML IV (21:30)
[2024-03-21 21:51] LABS: Lactate (Lactic Acid) 3.7 mmol/L (0.7-2.1)
[2024-03-21] MEDS: OXYCODONE/ACETAMINOPHEN 5/325 TABLET 1 TAB PO (22:59)
[2024-03-21 23:10] LABS: Reflexed Lactate in 2 Hours Y
[2024-03-22] VITALS (67 sets, daily range): BP systolic 100–202; BP diastolic 51–124; PULSE 60–101; RESP 12–72; TEMP 30.9–36.9; O2SAT 93–98
[2024-03-22 00:10] LABS: Lactate 2HR (Lactic Acid Rflx) 1.8 mmol/L (0.7-2.1)
[2024-03-22] MEDS: PIPERACILLIN/TAZO 4.5 GM in SODIUM CHLORIDE 0.9% 100 ML IV ×3 (02:29→17:54)
--- NOTE | 2024-03-22 04:37 | RT ---
Patient tolerating V60 in ST mode quite well. Pressures 15/5, back up rate of 12 breathing 19-22, 94-96% on 30% FIO2. BS diminished throughout. No changes at this time.
[2024-03-22 05:04] LABS: Add Manual Diff / Slide Review NO; Basophils Absolute Auto 0 /uL (0-100); Basophils Percent Auto 0.1 % (0-2); Eosinophils Absolute Auto 100 /uL (0-450); Eosinophils Percent Auto 0.7 % (2-4); Hematocrit 46.8 % (41-53); Hemoglobin 15.2 g/dL (13.5-17.5); Lymphocytes Absolute Auto 700 /uL (1100-4500); Lymphocytes Percent Auto 3.6 % (25-40); Mean Corpuscular HGB Conc 32.4 % (30-36); Mean Corpuscular Hemoglobin 27.6 PG (26-34); Mean Corpuscular Volume 85.2 fL (80-100); Monocytes Absolute Auto 800 /uL (0-900); Monocytes Percent Auto 4.5 % (3-14); Neutrophils Absolute Auto 16900 /uL (1500-7000); Neutrophils Percent Auto 91.1 % (50-75); Platelet Count 145 X10^3/uL (150-400); Red Cell Distribution Width 15.4 % (11.6-14.8); White Blood Cell Count 18.5 X10^3/uL (4.5-11.0)
[2024-03-22 05:28] LABS: BUN Creatinine Ratio 21.5 (6-22); Blood Urea Nitrogen 34 mg/dL (9-20); Carbon Dioxide 27 mmol/L (22-32); Chloride 100 mmol/L (98-107); Estimated Glomerular Filt Rate 51 mL/min (>60); Glucose 116 mg/dL (70-100); HEMOLYSIS < 15 (0-50); Potassium 3.7 mmol/L (3.4-5.1); Sodium 134 mmol/L (137-145)
[2024-03-22] MEDS: DEXTROSE 5%-0.45% NS 1,000 ML 100 ML IV (06:07)
[2024-03-22] MEDS: OXYCODONE/ACETAMINOPHEN 5/325 TABLET 1 TAB PO ×3 (06:31→20:50)
[2024-03-22 08:07] LABS: MRSA (Nasal) PCR NOT DETECTED (Not Detect)
[2024-03-22] MEDS: SODIUM CHLORIDE 0.9% FLUSH 10 ML IV ×2 (09:50→20:43)
[2024-03-22] MEDS: HEPARIN 5,000 UNIT/ML VIAL 7500 UNIT SUBCUT ×3 (09:50→21:09)
[2024-03-22] MEDS: METOPROLOL IR 25 MG TABLET PO (09:50)
--- NOTE | 2024-03-22 10:05 | PM.PN.1 ---
Subjective Subjective Date Patient Seen: 03/22/24 Time Patient Seen: 10:05 Interval history: Patient appears comfortable, states his pain is about the same as yesterday. He does have a worsening leukocytosis today compared to yesterday. Exam Vital Signs (past 8 hours): - 03/22/24 02:15 03/22/24 02:15 03/22/24 02:30 Temperature Pulse Rate 62 64 Respiratory Rate 17 17 Blood Pressure 106/56 L Pulse Oximetry 96 95 Oxygen Delivery Method Fraction of Inspired Oxygen 03/22/24 02:30 03/22/24 02:45 03/22/24 02:45 Temperature Pulse Rate 64 Respiratory Rate 17 Blood Pressure 117/55 L 118/57 L Pulse Oximetry 97 Oxygen Delivery Method Fraction of Inspired Oxygen 03/22/24 03:00 03/22/24 03:00 03/22/24 03:15 Temperature Pulse Rate 63 62 Respiratory Rate 26 H 49 H Blood Pressure 114/55 L Pulse Oximetry 96 96 Oxygen Delivery Method Fraction of Inspired Oxygen 03/22/24 03:15 03/22/24 03:30 03/22/24 03:30 Temperature Pulse Rate 62 Respiratory Rate 16 Blood Pressure 110/59 L 111/56 L Pulse Oximetry 95 Oxygen Delivery Method Fraction of Inspired Oxygen 03/22/24 03:45 03/22/24 03:45 03/22/24 04:00 Temperature Pulse Rate 62 Respiratory Rate 17 Blood Pressure 123/60 113/56 L Pulse Oximetry 95 Oxygen Delivery Method Fraction of Inspired Oxygen 03/22/24 04:00 03/22/24 04:00 03/22/24 04:10 Temperature Pulse Rate 63 Respiratory Rate 19 Blood Pressure 115/51 L Pulse Oximetry 96 Oxygen Delivery Method Nasal Cannula BiPAP Fraction of Inspired Oxygen 30 03/22/24 04:15 03/22/24 04:15 03/22/24 04:30 Temperature Pulse Rate 63 Respiratory Rate 24 Blood Pressure 115/57 L 130/61 Pulse Oximetry 97 Oxygen Delivery Method Fraction of Inspired Oxygen 03/22/24 04:30 03/22/24 04:45 03/22/24 04:45 Temperature Pulse Rate 66 65 Respiratory Rate 24 19 Blood Pressure 130/59 L Pulse Oximetry 97 96 Oxygen Delivery Method Fraction of Inspired Oxygen 03/22/24 05:00 03/22/24 05:00 03/22/24 05:15 Temperature Pulse Rate 65 Respiratory Rate 19 Blood Pressure 132/62 122/59 L Pulse Oximetry 98 Oxygen Delivery Method Fraction of Inspired Oxygen 03/22/24 05:15 03/22/24 05:30 03/22/24 05:30 Temperature Pulse Rate 65 65 Respiratory Rate 24 17 Blood Pressure 123/58 L Pulse Oximetry 95 95 Oxygen Delivery Method Fraction of Inspired Oxygen 03/22/24 05:45 03/22/24 05:45 03/22/24 06:00 Temperature Pulse Rate 64 65 Respiratory Rate 20 18 Blood Pressure 119/56 L Pulse Oximetry 95 97 Oxygen Delivery Method Fraction of Inspired Oxygen 03/22/24 06:00 03/22/24 06:15 03/22/24 06:15 Temperature 97.1 F L Pulse Rate 69 Respiratory Rate 21 Blood Pressure 119/55 L 127/58 L Pulse Oximetry 96 Oxygen Delivery Method Fraction of Inspired Oxygen 03/22/24 06:30 03/22/24 07:00 03/22/24 07:30 Temperature Pulse Rate 85 68 75 Respiratory Rate 22 Blood Pressure Pulse Oximetry 93 93 96 Oxygen Delivery Method Fraction of Inspired Oxygen 03/22/24 07:30 03/22/24 07:33 03/22/24 08:00 Temperature 98.4 F Pulse Rate 68 Respiratory Rate 17 Blood Pressure 127/58 L Pulse Oximetry 96 Oxygen Delivery Method Fraction of Inspired Oxygen 30 03/22/24 08:00 03/22/24 08:30 Temperature Pulse Rate 69 Respiratory Rate 18 Blood Pressure Pulse Oximetry 95 Oxygen Delivery Method Nasal Cannula BiPAP Fraction of Inspired Oxygen Fraction of Inspired Oxygen 30 Oxygen Delivery Method Nasal Cannula,BiPAP Oxygen Flow Rate 0 Narrative Exam Narrative: Gen: NAD, sitting comfortably in bed, appears well HEENT: Sclera are anicteric, head is normocephalic and atraumatic, trachea is midline. CV: RRR, no JVD Resp: clear to auscultation bilaterally, equal chest wall movement bilaterally Abd: soft, tender to palpation in the right lower quadrant, normoactive bowel sounds Ext: no edema, full range of motion Neuro: Cranial nerves II-XII grossly intact, no focal deficits Skin: No erythema or ecchymosis Objective Labs 03/22/24 04:37 03/22/24 04:37 Labs: Laboratory Results - last 24 hr 03/21/24 03/21/24 03/21/24 10:07 10:28 13:45 WBC 8.0 RBC 6.04 H Hgb 16.9 Hct 51.7 MCV 85.5 MCH 28.0 MCHC 32.7 RDW 15.0 H Plt Count 212 Neut % (Auto) 93.8 H Lymph % (Auto) 4.1 L [place] % (Auto) 0.3 L Eos % (Auto) 0.8 L Baso % (Auto) 1.0 Neut # (Auto) 7500 H Lymph # (Auto) 300 L [place] # (Auto) 0 Eos # (Auto) 100 Baso # (Auto) 100 PT 13.2 H INR 1.2 Sodium 135 L Potassium 3.9 Chloride 99 Carbon Dioxide 26 BUN 19 Creatinine 1.06 Estimated GFR > 60 BUN/Creatinine Ratio 17.9 Glucose 118 H Lactate 2.7 H 2.8 H Calcium 8.6 Total Bilirubin 1.9 H AST 31 ALT 31 Alkaline Phosphatase 111 Total Creatine Kinase 61 Troponin I < 0.012 NT-Pro-B Natriuret Pep 46 Total Protein 7.7 Albumin 4.4 Globulin 3.3 Albumin/Globulin Ratio 1.3 Nasal Screen MRSA (PCR) SARS-CoV-2 (PCR) Negative Influenza A (RT-PCR) Flu a negative Influenza B (RT-PCR) Flu b negative RSV (PCR) Positive A 03/21/24 03/21/24 03/22/24 21:24 23:40 04:37 WBC 18.5 H D RBC 5.50 Hgb 15.2 Hct 46.8 MCV 85.2 MCH 27.6 MCHC 32.4 RDW 15.4 H Plt Count 145 L Neut % (Auto) 91.1 H Lymph % (Auto) 3.6 L [place] % (Auto) 4.5 Eos % (Auto) 0.7 L Baso % (Auto) 0.1 Neut # (Auto) 03170 H Lymph # (Auto) 700 L [place] # (Auto) 800 Eos # (Auto) 100 Baso # (Auto) 0 PT INR Sodium 134 L Potassium 3.7 Chloride 100 Carbon Dioxide 27 BUN 34 H Creatinine 1.58 H Estimated GFR 51 L BUN/Creatinine Ratio 21.5 Glucose 116 H Lactate 3.7 H 1.8 1.0 Calcium 8.0 L Total Bilirubin AST ALT Alkaline Phosphatase Total Creatine Kinase Troponin I NT-Pro-B Natriuret Pep Total Protein Albumin Globulin Albumin/Globulin Ratio Nasal Screen MRSA (PCR) SARS-CoV-2 (PCR) Influenza A (RT-PCR) Influenza B (RT-PCR) RSV (PCR) 03/22/24 06:45 WBC RBC Hgb Hct MCV MCH MCHC RDW Plt Count Neut % (Auto) Lymph % (Auto) [place] % (Auto) Eos % (Auto) Baso % (Auto) Neut # (Auto) Lymph # (Auto) [place] # (Auto) Eos # (Auto) Baso # (Auto) PT INR Sodium Potassium Chloride Carbon Dioxide BUN Creatinine Estimated GFR BUN/Creatinine Ratio Glucose Lactate Calcium Total Bilirubin AST ALT Alkaline Phosphatase Total Creatine Kinase Troponin I NT-Pro-B Natriuret Pep Total Protein Albumin Globulin Albumin/Globulin Ratio Nasal Screen MRSA (PCR) Not detected SARS-CoV-2 (PCR) Influenza A (RT-PCR) Influenza B (RT-PCR) RSV (PCR) [facility] Medical History Cellulitis Congestive heart failure (CHF) Hypertension Nonadherence to medication Obstructive sleep apnea Social History household members: none Smoking Status: Current every day smoker alcohol intake: never Assessment & Plan Assessment and plan (1) Acute appendicitis with localized peritonitis without perforation: Status: Acute (2) Respiratory syncytial virus (RSV) infection: Status: Acute Assessment & Plan narrative: Discussed with the patient laparoscopic appendectomy, with concerns for his ability to be extubated and maintain his oxygen status following general anesthesia. We will reassess later today, and if his pain persists, where he develops tachycardia or fever, may require laparoscopic appendectomy Time-Based Coding :: [TOTAL MINUTES] spent with patient and on the chart (including review of chart, obtaining history, exam, reviewing outside data, placing orders, documenting exam and treatment plan, and counseling patient) on [DATE]. Quality VTE Deep Vein Thrombosis/Pulmonary Embolism Present on Admission: No PROFEE Charge codes Subsequent inpatient/observation care: 47533
--- NOTE | 2024-03-22 11:36 | P.PN_ITS ---
Subjective Subjective Date Patient Seen: 03/22/24 Time Patient Seen: 08:05 Interval history: Narrative: 54-year-old man under the primary care of Dr. Manuel Kruger reports acute onset right lower quadrant pain yesterday morning. Pain persisted and worsened and he presented to the emergency department today with CT imaging showing early appendicitis without evidence of fecalith or perforation. While in the emergency department he noted increasing oxygen requirement from his usual 2 L nasal cannula at home to 4 L in the emergency department, and temporarily required placement of BiPAP and non-rebreather mask. He was observed and subsequently this transient hypoxemia resolved and he was resumed on his usual nasal cannula oxygen. Surgery consulted and recommended IV antibiotic management given high risk of laparoscopic appendectomy in the setting of his underlying respiratory condition. He uses a Trilogy home ventilator device. He has no history of diabetes. He tested positive for RSV in the emergency department. He was intubated on mechanical ventilation with a COVID infection in 02/2023. Subjective: Patient reports persistent right lower quadrant pain, reportedly increased from yesterday. No nausea, vomiting, diarrhea, chest pain or shortness of breath. He tolerated BiPAP overnight. He has a Trilogy home ventilator device home but is unable to access it. Exam Vital Signs (past 8 hours): - 03/22/24 03:45 03/22/24 03:45 03/22/24 04:00 Temperature Pulse Rate 62 Respiratory Rate 17 Blood Pressure 123/60 113/56 L Pulse Oximetry 95 Oxygen Delivery Method Fraction of Inspired Oxygen 03/22/24 04:00 03/22/24 04:00 03/22/24 04:10 Temperature Pulse Rate 63 Respiratory Rate 19 Blood Pressure 115/51 L Pulse Oximetry 96 Oxygen Delivery Method Nasal Cannula BiPAP Fraction of Inspired Oxygen 30 03/22/24 04:15 03/22/24 04:15 03/22/24 04:30 Temperature Pulse Rate 63 Respiratory Rate 24 Blood Pressure 115/57 L 130/61 Pulse Oximetry 97 Oxygen Delivery Method Fraction of Inspired Oxygen 03/22/24 04:30 03/22/24 04:45 03/22/24 04:45 Temperature Pulse Rate 66 65 Respiratory Rate 24 19 Blood Pressure 130/59 L Pulse Oximetry 97 96 Oxygen Delivery Method Fraction of Inspired Oxygen 03/22/24 05:00 03/22/24 05:00 03/22/24 05:15 Temperature Pulse Rate 65 Respiratory Rate 19 Blood Pressure 132/62 122/59 L Pulse Oximetry 98 Oxygen Delivery Method Fraction of Inspired Oxygen 03/22/24 05:15 03/22/24 05:30 03/22/24 05:30 Temperature Pulse Rate 65 65 Respiratory Rate 24 17 Blood Pressure 123/58 L Pulse Oximetry 95 95 Oxygen Delivery Method Fraction of Inspired Oxygen 03/22/24 05:45 03/22/24 05:45 03/22/24 06:00 Temperature Pulse Rate 64 65 Respiratory Rate 20 18 Blood Pressure 119/56 L Pulse Oximetry 95 97 Oxygen Delivery Method Fraction of Inspired Oxygen 03/22/24 06:00 03/22/24 06:15 03/22/24 06:15 Temperature 97.1 F L Pulse Rate 69 Respiratory Rate 21 Blood Pressure 119/55 L 127/58 L Pulse Oximetry 96 Oxygen Delivery Method Fraction of Inspired Oxygen 03/22/24 06:30 03/22/24 07:00 03/22/24 07:30 Temperature Pulse Rate 85 68 75 Respiratory Rate 22 Blood Pressure Pulse Oximetry 93 93 96 Oxygen Delivery Method Fraction of Inspired Oxygen 03/22/24 07:30 03/22/24 07:33 03/22/24 08:00 Temperature 98.4 F Pulse Rate 68 Respiratory Rate 17 Blood Pressure 127/58 L Pulse Oximetry 96 Oxygen Delivery Method Fraction of Inspired Oxygen 30 03/22/24 08:00 03/22/24 08:30 Temperature Pulse Rate 69 Respiratory Rate 18 Blood Pressure Pulse Oximetry 95 Oxygen Delivery Method Nasal Cannula BiPAP Fraction of Inspired Oxygen Fraction of Inspired Oxygen 30 Oxygen Delivery Method Nasal Cannula,BiPAP Oxygen Flow Rate 0 Narrative Exam Narrative: GENERAL: This is a very pleasant, obese male patient, in no apparent distress, on Bipap this morning, subsequently 95% on room air off BiPAP EYES: Pupils equal round and reactive. Extraocular motions intact. No scleral icterus. No injection or drainage. ENT: Mucous membranes pink and moist. NECK: Trachea midline. No JVD, bruits or lymphadenopathy. Supple, nontender, no meningeal signs. CARDIOVASCULAR: Regular rate and rhythm without murmurs, gallops, or rubs. RESPIRATORY: Clear to auscultation. GASTROINTESTINAL: Abdomen soft, obese, moderate right lower quadrant tenderness, no guarding, rebound or rigidity. EXTREMITIES: 1+ edema with stasis changes. NEUROLOGIC: Alert, oriented, speech fluent, full upper and lower motor strength, no focal deficits evident. DERMATOLOGIC: No rashes or skin lesions. Objective Labs 03/22/24 04:37 03/22/24 04:37 Labs: Laboratory Results - last 24 hr 03/21/24 03/21/24 03/21/24 13:45 21:24 23:40 WBC RBC Hgb Hct MCV MCH MCHC RDW Plt Count Neut % (Auto) Lymph % (Auto) [place] % (Auto) Eos % (Auto) Baso % (Auto) Neut # (Auto) Lymph # (Auto) [place] # (Auto) Eos # (Auto) Baso # (Auto) Sodium Potassium Chloride Carbon Dioxide BUN Creatinine Estimated GFR BUN/Creatinine Ratio Glucose Lactate 2.8 H 3.7 H 1.8 Calcium Nasal Screen MRSA (PCR) 03/22/24 03/22/24 04:37 06:45 WBC 18.5 H D RBC 5.50 Hgb 15.2 Hct 46.8 MCV 85.2 MCH 27.6 MCHC 32.4 RDW 15.4 H Plt Count 145 L Neut % (Auto) 91.1 H Lymph % (Auto) 3.6 L [place] % (Auto) 4.5 Eos % (Auto) 0.7 L Baso % (Auto) 0.1 Neut # (Auto) 51383 H Lymph # (Auto) 700 L [place] # (Auto) 800 Eos # (Auto) 100 Baso # (Auto) 0 Sodium 134 L Potassium 3.7 Chloride 100 Carbon Dioxide 27 BUN 34 H Creatinine 1.58 H Estimated GFR 51 L BUN/Creatinine Ratio 21.5 Glucose 116 H Lactate 1.0 Calcium 8.0 L Nasal Screen MRSA (PCR) Not detected [facility] Medical History Cellulitis Congestive heart failure (CHF) Hypertension Nonadherence to medication Obstructive sleep apnea Social History household members: none Smoking Status: Current every day smoker alcohol intake: never Assessment & Plan Assessment & Plan narrative: 1. Acute appendicitis. Continue IV Zosyn 4.5 mg IV q.8 hours preferably on medical management given surgical risks. Surgical follow-up for management. High risk for surgical management. 2. Congestive heart failure. Prior history unavailable. History of chronic hypercarbic respiratory failure on Trilogy device at home. Monitor in ICU with BiPAP. This condition does not preclude surgery is medically indicated. Case reviewed with surgery today. 3. Acute RSV infection. Symptomatic care. 4. Acute on chronic hypoxic respiratory failure. Likely due to RSV and reduced abdominal excursion due to 1. Monitor in ICU setting as above. Appears stable. 5. Sepsis due to the above with elevated serum lactate, tachycardia, respiratory failure, Hypertension. Continue routine medication. Hold diuretics. 6. Hyperlipidemia. Continue routine medication. 7. DVT prophylaxis: Subcutaneous heparin 8. Code status: Full code Plan: -IV Zosyn -surgery consultation -BiPAP in ICU setting at night -supplemental oxygen if needed, currently on room air -supportive care -subcutaneous heparin, hold if surgery anticipated The patient is admitted inpatient status as he will require at least 2 midnights of inpatient level care. Quality VTE Deep Vein Thrombosis/Pulmonary Embolism Present on Admission: No PROFEE Charge codes Subsequent inpatient/observation care: 11148
--- NOTE | 2024-03-22 13:50 | PM.PN.1 ---
Subjective Subjective Date Patient Seen: 03/22/24 Time Patient Seen: 13:50 Interval history: Patient does not have tachycardia, his pain is becoming less consistent. Exam Vital Signs (past 8 hours): - 03/22/24 06:00 03/22/24 06:00 03/22/24 06:15 Temperature 97.1 F L Pulse Rate 65 69 Respiratory Rate 18 21 Blood Pressure 119/55 L Pulse Oximetry 97 96 Oxygen Delivery Method Fraction of Inspired Oxygen 03/22/24 06:15 03/22/24 06:30 03/22/24 07:00 Temperature Pulse Rate 85 68 Respiratory Rate Blood Pressure 127/58 L Pulse Oximetry 93 93 Oxygen Delivery Method Fraction of Inspired Oxygen 03/22/24 07:30 03/22/24 07:30 03/22/24 07:33 Temperature 98.4 F Pulse Rate 75 Respiratory Rate 22 Blood Pressure 127/58 L Pulse Oximetry 96 Oxygen Delivery Method Fraction of Inspired Oxygen 30 03/22/24 08:00 03/22/24 08:00 03/22/24 08:30 Temperature Pulse Rate 68 69 Respiratory Rate 17 18 Blood Pressure Pulse Oximetry 96 95 Oxygen Delivery Method Nasal Cannula BiPAP Fraction of Inspired Oxygen 03/22/24 09:00 03/22/24 09:30 03/22/24 10:00 Temperature Pulse Rate 68 66 69 Respiratory Rate 18 20 21 Blood Pressure Pulse Oximetry 98 98 97 Oxygen Delivery Method Fraction of Inspired Oxygen 03/22/24 10:30 03/22/24 11:00 03/22/24 11:30 Temperature Pulse Rate 72 95 H 92 H Respiratory Rate 28 H Blood Pressure Pulse Oximetry 97 95 95 Oxygen Delivery Method Fraction of Inspired Oxygen 03/22/24 11:44 03/22/24 11:44 03/22/24 12:00 Temperature Pulse Rate 83 77 Respiratory Rate 19 22 Blood Pressure 168/78 H Pulse Oximetry 97 98 Oxygen Delivery Method Fraction of Inspired Oxygen 03/22/24 12:00 03/22/24 12:00 03/22/24 12:00 Temperature Pulse Rate Respiratory Rate Blood Pressure 159/72 H 168/78 H Pulse Oximetry Oxygen Delivery Method Nasal Cannula BiPAP Fraction of Inspired Oxygen 30 Fraction of Inspired Oxygen 30 Oxygen Delivery Method Nasal Cannula,BiPAP Oxygen Flow Rate 0 Objective Labs 03/22/24 04:37 03/22/24 04:37 Labs: Laboratory Results - last 24 hr 03/21/24 03/21/24 03/21/24 13:45 21:24 23:40 WBC RBC Hgb Hct MCV MCH MCHC RDW Plt Count Neut % (Auto) Lymph % (Auto) [place] % (Auto) Eos % (Auto) Baso % (Auto) Neut # (Auto) Lymph # (Auto) [place] # (Auto) Eos # (Auto) Baso # (Auto) Sodium Potassium Chloride Carbon Dioxide BUN Creatinine Estimated GFR BUN/Creatinine Ratio Glucose Lactate 2.8 H 3.7 H 1.8 Calcium Nasal Screen MRSA (PCR) 03/22/24 03/22/24 04:37 06:45 WBC 18.5 H D RBC 5.50 Hgb 15.2 Hct 46.8 MCV 85.2 MCH 27.6 MCHC 32.4 RDW 15.4 H Plt Count 145 L Neut % (Auto) 91.1 H Lymph % (Auto) 3.6 L [place] % (Auto) 4.5 Eos % (Auto) 0.7 L Baso % (Auto) 0.1 Neut # (Auto) 35873 H Lymph # (Auto) 700 L [place] # (Auto) 800 Eos # (Auto) 100 Baso # (Auto) 0 Sodium 134 L Potassium 3.7 Chloride 100 Carbon Dioxide 27 BUN 34 H Creatinine 1.58 H Estimated GFR 51 L BUN/Creatinine Ratio 21.5 Glucose 116 H Lactate 1.0 Calcium 8.0 L Nasal Screen MRSA (PCR) Not detected [facility] Medical History Cellulitis Congestive heart failure (CHF) Hypertension Nonadherence to medication Obstructive sleep apnea Social History household members: none Smoking Status: Current every day smoker alcohol intake: never Assessment & Plan Assessment and plan (1) Acute appendicitis with localized peritonitis without perforation: Status: Acute (2) Respiratory syncytial virus (RSV) infection: Status: Acute Assessment & Plan narrative: On reassessment, patient seems to be improving with antibiotic treatment. No plans for laparoscopic appendectomy at this time. Continue to improve from RSV. Time-Based Coding :: [TOTAL MINUTES] spent with patient and on the chart (including review of chart, obtaining history, exam, reviewing outside data, placing orders, documenting exam and treatment plan, and counseling patient) on [DATE]. Quality VTE Deep Vein Thrombosis/Pulmonary Embolism Present on Admission: No
[2024-03-22] MEDS: DEXTROSE 5%-0.45% NS 1,000 ML 125 ML IV ×2 (14:16→20:47)
[2024-03-22] MEDS: ONDANSETRON 4 MG/2 ML INJ IV (14:58)
--- NOTE | 2024-03-22 16:16 | PC.NURSE ---
Patient up to chair multiple times throughout shift, standby assist, short of breath on exertion. States pain is better than yesterday and last night, rated 5/10 once (medicated per eMAR) and none since. One episode of moderate nausea, no emesis. Two loose stools. Wearing BiPAP most of the day including while up in the chair, patient states they enjoy wearing it. Resting often and comfortably.
[2024-03-22] MEDS: HYDROMORPHONE 0.5 MG INJ IV (22:20)
[2024-03-23] VITALS (64 sets, daily range): BP systolic 131–220; BP diastolic 61–116; PULSE 52–100; RESP 12–66; TEMP 36.2–36.8; O2SAT 93–98
[2024-03-23] MEDS: PIPERACILLIN/TAZO 4.5 GM in SODIUM CHLORIDE 0.9% 100 ML IV ×3 (01:26→17:11)
[2024-03-23] MEDS: HYDROMORPHONE 0.5 MG INJ IV ×4 (02:49→20:11)
[2024-03-23 04:59] LABS: Add Manual Diff / Slide Review NO; Basophils Absolute Auto 0 /uL (0-100); Basophils Percent Auto 0.2 % (0-2); Eosinophils Absolute Auto 200 /uL (0-450); Eosinophils Percent Auto 1.6 % (2-4); Hematocrit 43.9 % (41-53); Hemoglobin 14.1 g/dL (13.5-17.5); Lymphocytes Absolute Auto 300 /uL (1100-4500); Lymphocytes Percent Auto 2.9 % (25-40); Mean Corpuscular HGB Conc 32.2 % (30-36); Mean Corpuscular Hemoglobin 27.6 PG (26-34); Mean Corpuscular Volume 85.7 fL (80-100); Monocytes Absolute Auto 400 /uL (0-900); Monocytes Percent Auto 3.7 % (3-14); Neutrophils Absolute Auto 10400 /uL (1500-7000); Neutrophils Percent Auto 91.6 % (50-75); Platelet Count 122 X10^3/uL (150-400); Red Blood Cell Count 5.12 X10^6/uL (4.5-5.9); Red Cell Distribution Width 15.6 % (11.6-14.8); White Blood Cell Count 11.3 X10^3/uL (4.5-11.0)
[2024-03-23] MEDS: HEPARIN 5,000 UNIT/ML VIAL 7500 UNIT SUBCUT ×3 (05:01→21:53)
[2024-03-23] MEDS: ONDANSETRON 4 MG/2 ML INJ IV ×2 (05:03→20:10)
[2024-03-23 05:17] LABS: Blood Urea Nitrogen 24 mg/dL (9-20); Calcium 7.5 mg/dL (8.4-10.2); Carbon Dioxide 26 mmol/L (22-32); Chloride 100 mmol/L (98-107); Estimated Glomerular Filt Rate > 60 mL/min (>60); Glucose 115 mg/dL (70-100); HEMOLYSIS < 15 (0-50); Potassium 3.9 mmol/L (3.4-5.1); Sodium 131 mmol/L (137-145)
[2024-03-23] MEDS: DEXTROSE 5%-0.45% NS 1,000 ML 125 ML IV ×3 (06:54→21:56)
[2024-03-23] MEDS: METOPROLOL IR 25 MG TABLET PO ×2 (08:22→20:28)
[2024-03-23] MEDS: SODIUM CHLORIDE 0.9% FLUSH 10 ML IV ×2 (08:23→20:11)
--- NOTE | 2024-03-23 08:28 | P.PN_ITS ---
Subjective Subjective Date Patient Seen: 03/23/24 Interval history: He is seen in his room today to follow-up his appendicitis, RSV and obesity hypoventilation syndrome. He continues with right lower quadrant abdominal pain. He is being treated with IV Zosyn. Exam Vital Signs (past 8 hours): - 03/23/24 00:30 03/23/24 01:00 03/23/24 01:00 Temperature Pulse Rate 84 87 Respiratory Rate 43 H 46 H Blood Pressure 141/61 H Pulse Oximetry 94 95 Oxygen Delivery Method Fraction of Inspired Oxygen 03/23/24 01:30 03/23/24 02:00 03/23/24 02:30 Temperature Pulse Rate 82 100 H 81 Respiratory Rate 64 H 29 H 44 H Blood Pressure Pulse Oximetry 94 95 94 Oxygen Delivery Method Fraction of Inspired Oxygen 03/23/24 03:00 03/23/24 03:23 03/23/24 03:30 Temperature Pulse Rate 86 88 Respiratory Rate 55 H 66 H Blood Pressure Pulse Oximetry 94 94 Oxygen Delivery Method Fraction of Inspired Oxygen 30 03/23/24 04:00 03/23/24 04:00 03/23/24 04:30 Temperature 98.3 F Pulse Rate 86 84 Respiratory Rate 54 H 47 H Blood Pressure Pulse Oximetry 94 95 Oxygen Delivery Method Nasal Cannula BiPAP Fraction of Inspired Oxygen 03/23/24 05:00 03/23/24 05:30 03/23/24 06:00 Temperature Pulse Rate 85 83 81 Respiratory Rate 48 H 44 H 52 H Blood Pressure Pulse Oximetry 95 95 94 Oxygen Delivery Method Fraction of Inspired Oxygen 03/23/24 06:30 03/23/24 07:00 03/23/24 07:47 Temperature Pulse Rate 79 97 H Respiratory Rate 47 H 36 H Blood Pressure Pulse Oximetry 95 Oxygen Delivery Method Fraction of Inspired Oxygen 30 Fraction of Inspired Oxygen 30 Oxygen Delivery Method Nasal Cannula,BiPAP Oxygen Flow Rate 0 Narrative Exam Narrative: Alert and oriented x3. Using the BiPAP mask. No apparent distress. Heart is regular rate and rhythm without murmur Lungs are clear to auscultation bilaterally Abdomen is obese, bowel sounds positive, very tender on the right lower quadrant. Extremities have no ankle edema Objective Labs 03/23/24 04:21 03/23/24 04:21 Labs: Laboratory Results - last 24 hr 03/23/24 04:21 WBC 11.3 H RBC 5.12 Hgb 14.1 Hct 43.9 MCV 85.7 MCH 27.6 MCHC 32.2 RDW 15.6 H Plt Count 122 L Neut % (Auto) 91.6 H Lymph % (Auto) 2.9 L [place] % (Auto) 3.7 Eos % (Auto) 1.6 L Baso % (Auto) 0.2 Neut # (Auto) 62308 H Lymph # (Auto) 300 L [place] # (Auto) 400 Eos # (Auto) 200 Baso # (Auto) 0 Sodium 131 L Potassium 3.9 Chloride 100 Carbon Dioxide 26 BUN 24 H Creatinine 1.00 Estimated GFR > 60 BUN/Creatinine Ratio 24.0 H Glucose 115 H Calcium 7.5 L PFSH Medical History Cellulitis Congestive heart failure (CHF) Hypertension Nonadherence to medication Obstructive sleep apnea Social History household members: none Smoking Status: Current every day smoker alcohol intake: never Assessment & Plan Assessment & Plan narrative: 1. Acute appendicitis. Continue IV Zosyn 4.5 mg IV q.8 hours preferably on medical management given surgical risks. Surgical follow-up for management. High risk for surgical management. 2. Congestive heart failure. Prior history unavailable. History of chronic hypercarbic respiratory failure on Trilogy device at home. Monitor in ICU with BiPAP. This condition does not preclude surgery if medically indicated. Case reviewed with surgery. 3. Acute RSV infection. Symptomatic care. 4. Acute on chronic hypoxic respiratory failure. Likely due to RSV and reduced abdominal excursion due to 1. Monitor in ICU setting as above. Appears stable. 5. Sepsis due to the above with elevated serum lactate, tachycardia, respiratory failure, Hypertension. Continue routine medication. Hold diuretics. 6. Hyperlipidemia. Continue routine medication. 7. DVT prophylaxis: Subcutaneous heparin 8. Code status: Full code Plan: -IV Zosyn -surgery following -BiPAP in ICU setting at night -supplemental oxygen if needed, currently on room air -supportive care -subcutaneous heparin, hold if surgery anticipated. Time-Based Coding :: [TOTAL MINUTES] spent with patient and on the chart (including review of chart, obtaining history, exam, reviewing outside data, placing orders, documenting exam and treatment plan, and counseling patient) on [DATE]. Quality VTE Deep Vein Thrombosis/Pulmonary Embolism Present on Admission: No
--- NOTE | 2024-03-23 11:50 | CM.DANOTE ---
B DCP Assessment note Pt is a 54yo M admitted with RSV/appendicitis. PMH of chronic rest failure, uses trilogy at home. PCP Manuel Kruger Payer [employer] and Medicaid [employer] reviewed EMR. Per chart review, pt lives home alone in [place]. Christian De La Fuente ([phone]) is pt's listed emergency contact. per chart review, no currently surgical interventions planned for appendicitis. continue IV abx, high risks associated with surgical intervention due to pt's obesity. Per RN, pt remains on BiPAP but likely could tolerate nasal O2. pt OOB with nursing standby assist, weak/lethargic, but overall does not anticipate any specific DCP/CM needs at this time. Pt remains in pain due to appendicitis. Per hospitalist in morning rounds, pt flu symptoms improving. likely here another day or so. P: anticipate home with OP F/u rec once medically stable. FLORI 03/24 vs 03/25. no identified barriers to safe dc home at this time. transportation plan unknown, friend vs Medicaid transport? CM team will continue to follow clinical course closely ALBERT Bunn Discharge Planning/Care Management CM Discharge Assessment Start: 03/23/24 11:49 Freq: Status: Active Protocol: Document 03/23/24 11:50 (Rec: 03/23/24 11:50 [id number]) Discharge Planning Assessment Assigned Leaf Stamper ALBERT French DPOA/Assigned Designee Name christian De La Fuente Contact Information [phone] Advance Directives? No History Provided By Patient,Medical Record Prior Living Arrangements House Household Members none Independent with ADL's Yes Is patient alert and oriented? Yes Discharge Plan Home Referrals Initiated None needed Whiteboard Updated in Patient Room with No name and ext. # of Leaf Stamper Review Status In Process Please Provide Date Initial DC 03/23/24 Assessment Was Performed Next Review Type Continued Stay Review
--- NOTE | 2024-03-23 12:22 | PM.PN.1 ---
Subjective Subjective Date Patient Seen: 03/23/24 Time Patient Seen: 12:23 Interval history: Patient states that his pain isn't any worse, please refusing oral pain medications and continues to request IV Dilaudid. Tolerated clear liquids for breakfast no nausea or vomiting. Exam Vital Signs (past 8 hours): - 03/23/24 04:30 03/23/24 05:00 03/23/24 05:30 Pulse Rate 84 85 83 Respiratory Rate 47 H 48 H 44 H Blood Pressure Pulse Oximetry 95 95 95 Oxygen Delivery Method Fraction of Inspired Oxygen 03/23/24 06:00 03/23/24 06:30 03/23/24 07:00 Pulse Rate 81 79 97 H Respiratory Rate 52 H 47 H 36 H Blood Pressure Pulse Oximetry 94 95 Oxygen Delivery Method Fraction of Inspired Oxygen 03/23/24 07:30 03/23/24 07:47 03/23/24 08:00 Pulse Rate 77 Respiratory Rate 42 H Blood Pressure Pulse Oximetry 96 Oxygen Delivery Method Nasal Cannula BiPAP Fraction of Inspired Oxygen 30 03/23/24 08:00 03/23/24 08:18 03/23/24 08:18 Pulse Rate 79 75 Respiratory Rate 18 18 Blood Pressure 165/74 H Pulse Oximetry 95 97 Oxygen Delivery Method Fraction of Inspired Oxygen 03/23/24 08:30 03/23/24 09:00 03/23/24 09:01 Pulse Rate 84 72 Respiratory Rate 26 H 56 H Blood Pressure 164/72 H Pulse Oximetry 96 97 Oxygen Delivery Method Fraction of Inspired Oxygen 03/23/24 09:01 03/23/24 09:30 03/23/24 10:00 Pulse Rate 73 67 75 Respiratory Rate 58 H 43 H 60 H Blood Pressure Pulse Oximetry 96 97 96 Oxygen Delivery Method Fraction of Inspired Oxygen 03/23/24 10:13 03/23/24 10:13 03/23/24 10:30 Pulse Rate 66 61 Respiratory Rate 13 16 Blood Pressure 156/72 H 156/72 H Pulse Oximetry 97 96 Oxygen Delivery Method Fraction of Inspired Oxygen 03/23/24 11:00 03/23/24 11:00 03/23/24 11:29 Pulse Rate 57 L Respiratory Rate 39 H Blood Pressure 147/66 H 156/72 H Pulse Oximetry 97 Oxygen Delivery Method Fraction of Inspired Oxygen 30 03/23/24 11:30 03/23/24 12:00 03/23/24 12:00 Pulse Rate 56 L 58 L Respiratory Rate 35 H 29 H Blood Pressure 172/74 H Pulse Oximetry 96 97 Oxygen Delivery Method Nasal Cannula BiPAP Fraction of Inspired Oxygen 03/23/24 12:00 Pulse Rate Respiratory Rate Blood Pressure 172/74 H Pulse Oximetry Oxygen Delivery Method Fraction of Inspired Oxygen Fraction of Inspired Oxygen 30 Oxygen Delivery Method Nasal Cannula,BiPAP Oxygen Flow Rate 0 Narrative Exam Narrative: Gen: NAD, sitting comfortably in bed, appears well on BiPAP HEENT: Sclera are anicteric, head is normocephalic and atraumatic, trachea is midline. CV: RRR, no JVD Resp: clear to auscultation bilaterally, equal chest wall movement bilaterally Abd: soft, nontender, normoactive bowel sounds Ext: no edema, full range of motion Neuro: Cranial nerves II-XII grossly intact, no focal deficits Skin: No erythema or ecchymosis Objective Labs 03/23/24 04:21 03/23/24 04:21 Labs: Laboratory Results - last 24 hr 03/23/24 04:21 WBC 11.3 H RBC 5.12 Hgb 14.1 Hct 43.9 MCV 85.7 MCH 27.6 MCHC 32.2 RDW 15.6 H Plt Count 122 L Neut % (Auto) 91.6 H Lymph % (Auto) 2.9 L [place] % (Auto) 3.7 Eos % (Auto) 1.6 L Baso % (Auto) 0.2 Neut # (Auto) 10423 H Lymph # (Auto) 300 L [place] # (Auto) 400 Eos # (Auto) 200 Baso # (Auto) 0 Sodium 131 L Potassium 3.9 Chloride 100 Carbon Dioxide 26 BUN 24 H Creatinine 1.00 Estimated GFR > 60 BUN/Creatinine Ratio 24.0 H Glucose 115 H Calcium 7.5 L PFSH Medical History Cellulitis Congestive heart failure (CHF) Hypertension Nonadherence to medication Obstructive sleep apnea Social History household members: none Smoking Status: Current every day smoker alcohol intake: never Assessment & Plan Assessment and plan (1) Acute appendicitis with localized peritonitis without perforation: Status: Acute Assessment & Plan narrative: Leukocytosis is normalizing. Patient's pain is not worsening. Continue medical management. Time-Based Coding :: [TOTAL MINUTES] spent with patient and on the chart (including review of chart, obtaining history, exam, reviewing outside data, placing orders, documenting exam and treatment plan, and counseling patient) on [DATE]. Quality VTE Deep Vein Thrombosis/Pulmonary Embolism Present on Admission: No
[2024-03-23] MEDS: OXYCODONE/ACETAMINOPHEN 5/325 TABLET 1 TAB PO ×2 (12:35→18:33)
--- NOTE | 2024-03-23 18:05 | PC.NURSE ---
Pt stable throughout shift. Comfortable on bipap, tolerating 3L NC while ambulating to BSC and eating. Up to BSC SBA. Diet advanced to soft per physician order. Several small, liquid, mucous stools throughout shift. Has cell phone at bedside. Pain improved with PRN medications, pt accepting PO medications with pain improvement.
[2024-03-23] MEDS: ATORVASTATIN 20 MG TABLET 40 MG PO (20:10)
[2024-03-24] VITALS (43 sets, daily range): BP systolic 105–209; BP diastolic 55–104; PULSE 51–68; RESP 12–64; TEMP 36.6–37.4; O2SAT 87–100
[2024-03-24] MEDS: HYDROMORPHONE 0.5 MG INJ IV ×2 (00:34→05:22)
[2024-03-24] MEDS: PIPERACILLIN/TAZO 4.5 GM in SODIUM CHLORIDE 0.9% 100 ML IV ×3 (02:11→17:42)
[2024-03-24] MEDS: HEPARIN 5,000 UNIT/ML VIAL 7500 UNIT SUBCUT ×3 (05:22→20:56)
[2024-03-24] MEDS: ONDANSETRON 4 MG/2 ML INJ IV (05:22)
[2024-03-24] MEDS: DEXTROSE 5%-0.45% NS 1,000 ML 125 ML IV (05:41)
--- NOTE | 2024-03-24 08:08 | PM.PN.1 ---
Subjective Subjective Date Patient Seen: 03/24/24 Interval history: He is seen in his room here today to follow up his Appendicitis and RSV URI. He is using the BIPAP here and is on Trelegy at home. His voice is muffled by the BIPAP. The RLQ seems to be less tender. His IVF will be stopped today. Exam Vital Signs (past 8 hours): - 03/24/24 00:30 03/24/24 00:39 03/24/24 00:39 Temperature Pulse Rate 51 L 54 L Respiratory Rate 43 H 50 H Blood Pressure 154/69 H Pulse Oximetry 100 100 Oxygen Delivery Method Fraction of Inspired Oxygen 03/24/24 01:00 03/24/24 01:30 03/24/24 01:32 Temperature Pulse Rate 54 L 59 L Respiratory Rate 24 40 H Blood Pressure 154/69 H Pulse Oximetry 98 96 Oxygen Delivery Method Fraction of Inspired Oxygen 30 03/24/24 02:00 03/24/24 02:23 03/24/24 02:30 Temperature Pulse Rate 66 60 Respiratory Rate 37 H 59 H Blood Pressure Pulse Oximetry 94 95 Oxygen Delivery Method Fraction of Inspired Oxygen 30 03/24/24 04:00 03/24/24 05:15 03/24/24 05:35 Temperature 99.3 F Pulse Rate 57 L Respiratory Rate 30 H Blood Pressure 154/67 H Pulse Oximetry 93 Oxygen Delivery Method BiPAP Fraction of Inspired Oxygen 30 Fraction of Inspired Oxygen 30 Oxygen Delivery Method BiPAP Oxygen Flow Rate 0 Narrative Exam Narrative: Alert and oriented X 3. NAD. Voice muffled by mask. H-RRR without murmur L-CTAB A-Obese, NT, No masses, Milder RLQ tenderness. E-No ankle edema Objective Labs 03/23/24 04:21 03/23/24 04:21 [facility] Medical History Cellulitis Congestive heart failure (CHF) Hypertension Nonadherence to medication Obstructive sleep apnea Social History household members: none Smoking Status: Current every day smoker alcohol intake: never Assessment & Plan Assessment & Plan narrative: 1. Acute appendicitis. Continue IV Zosyn 4.5 mg IV q.8 hours preferably on medical management given surgical risks. Surgical follow-up for management. High risk for surgical management. 2. Congestive heart failure. Prior history unavailable. History of chronic hypercarbic respiratory failure on Trilogy device at home. Monitor in ICU with BiPAP. This condition does not preclude surgery if medically indicated. 3. Acute RSV infection. Symptomatic care. 4. Acute on chronic hypoxic respiratory failure. Likely due to RSV and reduced abdominal excursion due to 1. Monitor in ICU setting as above. Appears stable. 5. Sepsis due to the above with elevated serum lactate, tachycardia, respiratory failure, Hypertension. Continue routine medication. Hold diuretics. 6. Hyperlipidemia. Continue routine medication. 7. DVT prophylaxis: Subcutaneous heparin 8. Code status: Full code Plan: -IV Zosyn -surgery following -BiPAP in ICU setting at night -supplemental oxygen if needed, currently on room air -supportive care -subcutaneous heparin, hold if surgery anticipated. Time-Based Coding :: [TOTAL MINUTES] spent with patient and on the chart (including review of chart, obtaining history, exam, reviewing outside data, placing orders, documenting exam and treatment plan, and counseling patient) on [DATE]. Quality VTE Deep Vein Thrombosis/Pulmonary Embolism Present on Admission: No
[2024-03-24] MEDS: SODIUM CHLORIDE 0.9% FLUSH 10 ML IV ×2 (10:39→20:57)
[2024-03-24] MEDS: METOPROLOL IR 25 MG TABLET PO ×2 (10:39→20:57)
--- NOTE | 2024-03-24 13:09 | CM.DPC ---
DCP Cont. Reviewed EMR and team rounds for status updates. Per Hospitalist, pt will need 1-more night before being medically stable for d/c. *Will need to clarify transport home in the am.
[2024-03-24] MEDS: OXYCODONE/ACETAMINOPHEN 5/325 TABLET 1 TAB PO ×2 (15:03→22:02)
--- NOTE | 2024-03-24 18:40 | RT ---
Pt taken of V-60 unit as he is on and off therapy at will as they are at home with their Trilogy unit. V-60 replaced with RespMed unit set to auto max 24 cmH20 max and 5 cmH20 min Insp/Exp respectively. RT no longer charting Q4 checks.
[2024-03-24] MEDS: ATORVASTATIN 20 MG TABLET 40 MG PO (20:57)
[2024-03-24] MEDS: diphenhydrAMINE 25 MG TABLET 50 MG PO (22:02)
[2024-03-25] VITALS (55 sets, daily range): BP systolic 123–163; BP diastolic 59–79; PULSE 52–84; RESP 9–63; TEMP 35.9–36.8; O2SAT 90–97
[2024-03-25] MEDS: PIPERACILLIN/TAZO 4.5 GM in SODIUM CHLORIDE 0.9% 100 ML IV ×3 (01:08→18:58)
[2024-03-25] MEDS: ACETAMINOPHEN 325 MG TABLET 650 MG PO (05:11)
[2024-03-25] MEDS: HEPARIN 5,000 UNIT/ML VIAL 7500 UNIT SUBCUT ×3 (05:11→22:27)
--- NOTE | 2024-03-25 07:46 | PM.PN.1 ---
Subjective Subjective Date Patient Seen: 03/25/24 Interval history: He is seen today to follow-up his RSV bronchitis and appendicitis. The blood pressure is higher at 163/78 with a respiratory rate quite high, recorded as 54, with the use of his CPAP. His heart rate is 59. General surgery indicates that he should be able to stop the antibiotics and discharge in 1-2 days. He has no abdominal tenderness on my exam today. Exam Vital Signs (past 8 hours): - 03/25/24 00:00 03/25/24 00:30 03/25/24 01:00 Temperature Pulse Rate 61 62 61 Respiratory Rate 36 H 43 H 22 Blood Pressure Pulse Oximetry 95 96 95 Oxygen Delivery Method 03/25/24 01:30 03/25/24 02:00 03/25/24 02:30 Temperature Pulse Rate 61 61 60 Respiratory Rate 36 H 35 H 41 H Blood Pressure Pulse Oximetry 96 97 97 Oxygen Delivery Method 03/25/24 03:00 03/25/24 03:30 03/25/24 04:00 Temperature Pulse Rate 61 61 64 Respiratory Rate 42 H 46 H 47 H Blood Pressure Pulse Oximetry 97 97 97 Oxygen Delivery Method 03/25/24 04:30 03/25/24 05:00 03/25/24 05:00 Temperature Pulse Rate 62 63 Respiratory Rate 46 H 35 H Blood Pressure Pulse Oximetry 96 97 Oxygen Delivery Method BiPAP 03/25/24 05:30 03/25/24 05:48 03/25/24 05:48 Temperature 97.2 F L Pulse Rate 62 61 Respiratory Rate 23 9 L Blood Pressure 163/78 H Pulse Oximetry 93 94 Oxygen Delivery Method 03/25/24 06:00 03/25/24 06:30 03/25/24 07:00 Temperature Pulse Rate 60 59 L 59 L Respiratory Rate 24 41 H 54 H Blood Pressure Pulse Oximetry 96 96 95 Oxygen Delivery Method Fraction of Inspired Oxygen 30 Oxygen Delivery Method BiPAP Oxygen Flow Rate 3.5 Narrative Exam Narrative: Alert and oriented x3. No apparent distress. Heart is regular rate and rhythm without murmur Lungs are clear to auscultation bilaterally Extremities have no ankle edema Abdomen is very obese. The right lower quadrant tenderness is not present today. Objective Labs 03/23/24 04:21 03/23/24 04:21 [facility] Medical History Cellulitis Congestive heart failure (CHF) Hypertension Nonadherence to medication Obstructive sleep apnea Social History household members: none Smoking Status: Current every day smoker alcohol intake: never Assessment & Plan Assessment & Plan narrative: 1. Acute appendicitis. Continue IV Zosyn 4.5 mg IV q.8 hours for 1-2 more days. General Surgery is following. 2. Congestive heart failure. Prior history unavailable. History of chronic hypercarbic respiratory failure on Trilogy device at home. Transitioned from BIPAP to CPAP so will change from ICU to medical kendrick care. Resume Metoprolol, Losartan, Lasix. 3. Acute RSV infection. Symptoms resolved. 4. Acute on chronic hypoxic respiratory failure. Likely due to RSV and reduced abdominal excursion due to 1. Transitioned successfully from BIPAP to CPAP. 5. Sepsis due to the above with elevated serum lactate, tachycardia, respiratory failure, Hypertension. Resolved. 6. Hyperlipidemia. Continue routine medication. 7. DVT prophylaxis: Subcutaneous heparin 8. Code status: Full code Plan: -IV Zosyn for 1-2 more days -Resume Lasix, Aspirin and Losartan -surgery following -CPAP -supplemental oxygen if needed, currently on room air -supportive care -subcutaneous heparin, hold if surgery anticipated. Time-Based Coding :: [TOTAL MINUTES] spent with patient and on the chart (including review of chart, obtaining history, exam, reviewing outside data, placing orders, documenting exam and treatment plan, and counseling patient) on [DATE]. Quality VTE Deep Vein Thrombosis/Pulmonary Embolism Present on Admission: No
[2024-03-25] MEDS: METOPROLOL IR 25 MG TABLET PO ×2 (10:13→20:28)
[2024-03-25] MEDS: SODIUM CHLORIDE 0.9% FLUSH 10 ML IV ×2 (10:13→20:30)
--- NOTE | 2024-03-25 13:04 | PM.PN.1 ---
Subjective Subjective Date Patient Seen: 03/25/24 Time Patient Seen: 13:04 Interval history: No tachycardia, improving abdominal pain. No fevers Exam Vital Signs (past 8 hours): - 03/25/24 05:30 03/25/24 05:48 03/25/24 05:48 Temperature 97.2 F L Pulse Rate 62 61 Respiratory Rate 23 9 L Blood Pressure 163/78 H Pulse Oximetry 93 94 03/25/24 06:00 03/25/24 06:30 03/25/24 07:00 Temperature Pulse Rate 60 59 L 59 L Respiratory Rate 24 41 H 54 H Blood Pressure Pulse Oximetry 96 96 95 03/25/24 07:30 03/25/24 08:00 03/25/24 08:30 Temperature Pulse Rate 55 L 57 L 57 L Respiratory Rate 27 H 43 H 35 H Blood Pressure Pulse Oximetry 96 95 97 03/25/24 09:00 03/25/24 09:00 03/25/24 09:30 Temperature 97.7 F Pulse Rate 65 63 Respiratory Rate 32 H 38 H Blood Pressure Pulse Oximetry 94 96 03/25/24 10:00 03/25/24 10:17 03/25/24 10:17 Temperature Pulse Rate 68 65 Respiratory Rate 31 H 40 H Blood Pressure 123/59 L Pulse Oximetry 90 L 95 03/25/24 10:30 03/25/24 11:00 03/25/24 11:30 Temperature Pulse Rate 59 L 62 62 Respiratory Rate 33 H 36 H 29 H Blood Pressure Pulse Oximetry 95 94 95 03/25/24 11:36 03/25/24 11:36 Temperature Pulse Rate 59 L Respiratory Rate 32 H Blood Pressure 159/79 H Pulse Oximetry 94 Fraction of Inspired Oxygen 30 Oxygen Delivery Method BiPAP Oxygen Flow Rate 3.5 Narrative Exam Narrative: Gen: NAD, sitting comfortably in bed, appears well HEENT: Sclera are anicteric, head is normocephalic and atraumatic, trachea is midline. CV: RRR, no JVD Resp: clear to auscultation bilaterally, equal chest wall movement bilaterally Abd: soft, nontender, normoactive bowel sounds Ext: no edema, full range of motion Neuro: Cranial nerves II-XII grossly intact, no focal deficits Skin: No erythema or ecchymosis Objective Labs 03/23/24 04:21 03/23/24 04:21 PFSH Medical History Cellulitis Congestive heart failure (CHF) Hypertension Nonadherence to medication Obstructive sleep apnea Social History household members: none Smoking Status: Current every day smoker alcohol intake: never Assessment & Plan Assessment and plan (1) Acute appendicitis with localized peritonitis without perforation: Status: Acute Assessment & Plan narrative: He has now had over 5 days of IV antibiotics. May stop antibiotics after tomorrow and see how he does. Time-Based Coding :: [TOTAL MINUTES] spent with patient and on the chart (including review of chart, obtaining history, exam, reviewing outside data, placing orders, documenting exam and treatment plan, and counseling patient) on [DATE]. Quality VTE Deep Vein Thrombosis/Pulmonary Embolism Present on Admission: No IH PROFEE Charge codes Subsequent inpatient/observation care: 94406
--- NOTE | 2024-03-25 13:57 | CM.DPC ---
DCP Cont. Reviewed EMR and team rounds for status updates. Per Dr. Mercado, pt will have his last round of IV ABO's this evening, and he will reassess pt again tomorrow for improvement towards FLORI. Following for final d/c needs.
[2024-03-25] MEDS: ASPIRIN EC 81 MG TABLET PO (14:09)
[2024-03-25] MEDS: FUROSEMIDE 40 MG TABLET 80 MG PO (14:09)
[2024-03-25] MEDS: LOSARTAN 50 MG TABLET 100 MG PO (14:09)
[2024-03-25] MEDS: ATORVASTATIN 20 MG TABLET 40 MG PO (20:28)
[2024-03-25] MEDS: OXYCODONE/ACETAMINOPHEN 5/325 TABLET 1 TAB PO (20:28)
[2024-03-25] MEDS: diphenhydrAMINE 25 MG TABLET 50 MG PO (20:29)
[2024-03-26] VITALS (28 sets, daily range): BP systolic 127–156; BP diastolic 56–71; PULSE 56–85; RESP 10–65; TEMP 35.7–36.9; O2SAT 88–95
[2024-03-26] MEDS: PIPERACILLIN/TAZO 4.5 GM in SODIUM CHLORIDE 0.9% 100 ML IV ×2 (01:33→10:12)
[2024-03-26 05:18] LABS: Add Manual Diff / Slide Review NO; Basophils Absolute Auto 100 /uL (0-100); Basophils Percent Auto 0.5 % (0-2); Eosinophils Absolute Auto 300 /uL (0-450); Eosinophils Percent Auto 2.8 % (2-4); Hematocrit 43.6 % (41-53); Hemoglobin 13.9 g/dL (13.5-17.5); Lymphocytes Absolute Auto 800 /uL (1100-4500); Lymphocytes Percent Auto 8.9 % (25-40); Mean Corpuscular HGB Conc 31.8 % (30-36); Mean Corpuscular Hemoglobin 27.3 PG (26-34); Monocytes Absolute Auto 800 /uL (0-900); Monocytes Percent Auto 8.3 % (3-14); Neutrophils Absolute Auto 7500 /uL (1500-7000); Neutrophils Percent Auto 79.5 % (50-75); Platelet Count 160 X10^3/uL (150-400); Red Blood Cell Count 5.08 X10^6/uL (4.5-5.9); Red Cell Distribution Width 15.6 % (11.6-14.8); White Blood Cell Count 9.4 X10^3/uL (4.5-11.0)
[2024-03-26 05:30] LABS: Blood Urea Nitrogen 10 mg/dL (9-20); Calcium 8.4 mg/dL (8.4-10.2); Carbon Dioxide 35 mmol/L (22-32); Chloride 100 mmol/L (98-107); Estimated Glomerular Filt Rate > 60 mL/min (>60); Glucose 103 mg/dL (70-100); HEMOLYSIS 18 (0-50); Potassium 3.5 mmol/L (3.4-5.1); Sodium 137 mmol/L (137-145)
[2024-03-26] MEDS: HEPARIN 5,000 UNIT/ML VIAL 7500 UNIT SUBCUT ×2 (06:17→14:09)
--- NOTE | 2024-03-26 08:03 | PM.PN.1 ---
Subjective Subjective Date Patient Seen: 03/26/24 Exam Vital Signs (past 8 hours): - 03/26/24 00:30 03/26/24 01:00 03/26/24 01:30 Temperature Pulse Rate 57 L 56 L 57 L Respiratory Rate 19 25 H 38 H Blood Pressure Pulse Oximetry 94 95 95 Oxygen Flow Rate 03/26/24 02:00 03/26/24 02:30 03/26/24 03:00 Temperature Pulse Rate 62 59 L 60 Respiratory Rate 46 H 53 H 56 H Blood Pressure Pulse Oximetry 94 93 90 L Oxygen Flow Rate 03/26/24 03:30 03/26/24 04:00 03/26/24 04:00 Temperature 96.2 F L Pulse Rate 65 66 64 Respiratory Rate 18 28 H 17 Blood Pressure 127/56 L Pulse Oximetry 88 L 93 92 Oxygen Flow Rate 0 03/26/24 04:30 03/26/24 04:40 03/26/24 04:40 Temperature Pulse Rate 66 66 Respiratory Rate 18 54 H Blood Pressure 127/56 L Pulse Oximetry 93 93 Oxygen Flow Rate 03/26/24 05:00 03/26/24 05:30 03/26/24 06:00 Temperature Pulse Rate 74 67 66 Respiratory Rate 10 L 42 H 50 H Blood Pressure Pulse Oximetry 91 92 92 Oxygen Flow Rate 03/26/24 06:30 03/26/24 07:00 03/26/24 07:30 Temperature Pulse Rate 64 63 68 Respiratory Rate 48 H 41 H 51 H Blood Pressure Pulse Oximetry 92 91 90 L Oxygen Flow Rate Fraction of Inspired Oxygen 32 SaO2/FiO2 Ratio 290 Oxygen Delivery Method CPAP Oxygen Flow Rate 0 Objective Labs 03/26/24 04:46 03/26/24 04:46 Labs: Laboratory Results - last 24 hr 03/26/24 04:46 WBC 9.4 RBC 5.08 Hgb 13.9 Hct 43.6 MCV 86.0 MCH 27.3 MCHC 31.8 RDW 15.6 H Plt Count 160 Neut % (Auto) 79.5 H Lymph % (Auto) 8.9 L [place] % (Auto) 8.3 Eos % (Auto) 2.8 Baso % (Auto) 0.5 Neut # (Auto) 7500 H Lymph # (Auto) 800 L [place] # (Auto) 800 Eos # (Auto) 300 Baso # (Auto) 100 Sodium 137 Potassium 3.5 Chloride 100 Carbon Dioxide 35 H BUN 10 Creatinine 0.83 Estimated GFR > 60 BUN/Creatinine Ratio 12.0 Glucose 103 H Calcium 8.4 PFSH Medical History Cellulitis Congestive heart failure (CHF) Hypertension Nonadherence to medication Obstructive sleep apnea Social History household members: none Smoking Status: Current every day smoker alcohol intake: never Assessment & Plan Assessment & Plan narrative: 1. Acute appendicitis. Continue IV Zosyn 4.5 mg IV q.8 hours for 1-2 more days. General Surgery is following. 2. Congestive heart failure. Prior history unavailable. History of chronic hypercarbic respiratory failure on Trilogy device at home. Transitioned from BIPAP to CPAP so will change from ICU to medical kendrick care. Resume Metoprolol, Losartan, Lasix. 3. Acute RSV infection. Symptoms resolved. 4. Acute on chronic hypoxic respiratory failure. Likely due to RSV and reduced abdominal excursion due to 1. Transitioned successfully from BIPAP to CPAP. 5. Sepsis due to the above with elevated serum lactate, tachycardia, respiratory failure, Hypertension. Resolved. 6. Hyperlipidemia. Continue routine medication. 7. DVT prophylaxis: Subcutaneous heparin 8. Code status: Full code Plan: -IV Zosyn for 1-2 more days -Resume Lasix, Aspirin and Losartan -surgery following -CPAP -supplemental oxygen if needed, currently on room air -supportive care -subcutaneous heparin, hold if surgery anticipated. Time-Based Coding :: [TOTAL MINUTES] spent with patient and on the chart (including review of chart, obtaining history, exam, reviewing outside data, placing orders, documenting exam and treatment plan, and counseling patient) on [DATE]. Quality VTE Deep Vein Thrombosis/Pulmonary Embolism Present on Admission: No
[2024-03-26] MEDS: SODIUM CHLORIDE 0.9% FLUSH 10 ML IV (09:21)
[2024-03-26] MEDS: METOPROLOL IR 25 MG TABLET PO (09:21)
[2024-03-26] MEDS: FUROSEMIDE 40 MG TABLET 80 MG PO (09:21)
[2024-03-26] MEDS: ASPIRIN EC 81 MG TABLET PO (09:21)
[2024-03-26] MEDS: LOSARTAN 50 MG TABLET 100 MG PO (09:21)
[2024-03-26] MEDS: POTASSIUM CHLORIDE 20 MEQ TAB 40 MEQ PO (12:08)
--- NOTE | 2024-03-26 12:23 | PM.PN.IH.1 ---
Subjective Subjective Date Patient Seen: 03/26/24 Time Patient Seen: 12:24 Interval history: Patient has been consistently denying abdominal pain. Tolerating a diet. His white blood cell count has normalized. He has had a bowel movement. Exam Vital Signs (past 8 hours): - 03/26/24 04:30 03/26/24 04:40 03/26/24 04:40 Pulse Rate 66 66 Respiratory Rate 18 54 H Blood Pressure 127/56 L Pulse Oximetry 93 93 Oxygen Delivery Method 03/26/24 05:00 03/26/24 05:30 03/26/24 06:00 Pulse Rate 74 67 66 Respiratory Rate 10 L 42 H 50 H Blood Pressure Pulse Oximetry 91 92 92 Oxygen Delivery Method 03/26/24 06:30 03/26/24 07:00 03/26/24 07:30 Pulse Rate 64 63 68 Respiratory Rate 48 H 41 H 51 H Blood Pressure Pulse Oximetry 92 91 90 L Oxygen Delivery Method 03/26/24 09:44 Pulse Rate Respiratory Rate Blood Pressure Pulse Oximetry Oxygen Delivery Method Nasal Cannula CPAP Fraction of Inspired Oxygen 32 SaO2/FiO2 Ratio 290 Oxygen Delivery Method Nasal Cannula,CPAP Oxygen Flow Rate 0 Narrative Exam Narrative: Gen: NAD, sleeping comfortably in bed, appears well HEENT: Sclera are anicteric, head is normocephalic and atraumatic, trachea is midline. CV: RRR, no JVD Resp: clear to auscultation bilaterally, equal chest wall movement bilaterally Abd: soft, nontender, normoactive bowel sounds Ext: no edema, full range of motion Neuro: Cranial nerves II-XII grossly intact, no focal deficits Skin: No erythema or ecchymosis Objective Labs 03/26/24 04:46 03/26/24 04:46 Labs: Laboratory Results - last 24 hr 03/26/24 04:46 WBC 9.4 RBC 5.08 Hgb 13.9 Hct 43.6 MCV 86.0 MCH 27.3 MCHC 31.8 RDW 15.6 H Plt Count 160 Neut % (Auto) 79.5 H Lymph % (Auto) 8.9 L [place] % (Auto) 8.3 Eos % (Auto) 2.8 Baso % (Auto) 0.5 Neut # (Auto) 7500 H Lymph # (Auto) 800 L [place] # (Auto) 800 Eos # (Auto) 300 Baso # (Auto) 100 Sodium 137 Potassium 3.5 Chloride 100 Carbon Dioxide 35 H BUN 10 Creatinine 0.83 Estimated GFR > 60 BUN/Creatinine Ratio 12.0 Glucose 103 H Calcium 8.4 PFSH Medical History Cellulitis Congestive heart failure (CHF) Hypertension Nonadherence to medication Obstructive sleep apnea Social History household members: none Smoking Status: Current every day smoker alcohol intake: never Assessment & Plan Assessment and plan (1) Acute appendicitis with localized peritonitis without perforation: Status: Acute Plan Today is day 5 of IV antibiotics. His white blood cell count is normal in his pain has resolved. Today can be his last day of antibiotics. If his respiratory status can improve and he can lose weight, would be reasonable to perform a colonoscopy in about 6 weeks as part of routine screening and to exclude other causes of the appendicitis findings on CT. Time-Based Coding :: [TOTAL MINUTES] spent with patient and on the chart (including review of chart, obtaining history, exam, reviewing outside data, placing orders, documenting exam and treatment plan, and counseling patient) on [DATE]. Quality VTE Deep Vein Thrombosis/Pulmonary Embolism Present on Admission: No IH PROFEE Electronics Maintenance Technician Document charge(s): Yes Charge Codes Subsequent inpatient/observation care: 22696
--- NOTE | 2024-03-26 13:45 | CM.DPC ---
DCP Cont. Reviewed EMR and team rounds for status updates. Pt has been medically cleared for d/c home, he has a friend that will transport him home. No further d/c needs identified for assistance at this time.
--- NOTE | 2024-03-26 14:53 | PM.DS.1 ---
History of Present Illness History of Present Illness Date Patient Seen: 03/26/24 Chief complaint: SOB Narrative: 54-year-old man under the primary care of Dr. Manuel Kruger reports acute onset right lower quadrant pain yesterday morning. Pain persisted and worsened and he presented to the emergency department today with CT imaging showing early appendicitis without evidence of fecalith or perforation. While in the emergency department he noted increasing oxygen requirement from his usual 2 L nasal cannula at home to 4 L in the emergency department, and temporarily required placement of BiPAP and non-rebreather mask. He was observed and subsequently this transient hypoxemia resolved and he was resumed on his usual nasal cannula oxygen. Surgery consulted and recommended IV antibiotic management given high risk of laparoscopic appendectomy in the setting of his underlying respiratory condition. He uses a Trilogy home ventilator device. He has no history of diabetes. He tested positive for RSV in the emergency department. He was intubated on mechanical ventilation with a COVID infection in 02/2023. Discharge Providers Provider Date of admission: 03/21/24 13:41 Discharge Date: 03/26/24 Primary care physician: Doctor Roberto MD Consults: 03/21/24 16:23 Consult to General Surgery Routine Comment: Consulting Provider: Max Mercado Reason for consultation: appendicitis Has provider been notified: Yes Discharge provider: Keena Giles MD Summary Hospital Course Discharge Diagnosis: 1. Acute appendicitis. Continue IV Zosyn 4.5 mg IV q.8 hours for 1-2 more days. General Surgery is following. 2. Congestive heart failure. Prior history unavailable. History of chronic hypercarbic respiratory failure on Trilogy device at home. Transitioned from BIPAP to CPAP. Resumed Metoprolol, Losartan, Lasix. 3. Acute RSV infection. Symptoms resolved. 4. Acute on chronic hypoxic respiratory failure. Likely due to RSV and reduced abdominal excursion due to 1. Transitioned successfully from BIPAP to CPAP. 5. Sepsis due to the above with elevated serum lactate, tachycardia, respiratory failure, Hypertension. Resolved. 6. Hyperlipidemia. Continue routine medication. 7. DVT prophylaxis: Subcutaneous heparin 8. Code status: Full code Hospital Course: He came in with abdominal pain that was clarified to be acute appendicitis on CT scan. He was seen by General surgery and started on Zosyn. After 5 days his abdominal pain resolved and he is being discharged with plans for follow-up colonoscopy in 6 weeks. He also had a history of congestive heart failure and chronic hypoxic respiratory failure treated with home trilogy. His respiratory symptoms steadily improved back to baseline. Status at Discharge Cognitive/behavioral status at discharge: at baseline, oriented Functional status at discharge: independent ambulation Overall status at discharge: patient is progressing back to baseline Exam Vital Signs (past 8 hours): - 03/26/24 07:00 03/26/24 07:30 03/26/24 08:00 Temperature Pulse Rate 63 68 69 Respiratory Rate 41 H 51 H 18 Blood Pressure Pulse Oximetry 91 90 L 94 Oxygen Delivery Method 03/26/24 08:30 03/26/24 09:00 03/26/24 09:30 Temperature Pulse Rate 80 75 85 Respiratory Rate 36 H 60 H 28 H Blood Pressure Pulse Oximetry 88 L 94 89 L Oxygen Delivery Method 03/26/24 09:44 03/26/24 10:00 03/26/24 10:30 Temperature Pulse Rate 73 68 Respiratory Rate 20 19 Blood Pressure Pulse Oximetry 93 92 Oxygen Delivery Method Nasal Cannula CPAP 03/26/24 11:00 03/26/24 11:30 03/26/24 12:00 Temperature 98.4 F Pulse Rate 64 63 Respiratory Rate 63 H 65 H Blood Pressure Pulse Oximetry 90 L 93 Oxygen Delivery Method 03/26/24 12:00 03/26/24 12:30 03/26/24 12:35 Temperature Pulse Rate 58 L 64 Respiratory Rate 43 H 34 H Blood Pressure 156/71 H Pulse Oximetry 89 L 93 Oxygen Delivery Method 03/26/24 12:35 Temperature Pulse Rate 60 Respiratory Rate 23 Blood Pressure Pulse Oximetry 92 Oxygen Delivery Method Fraction of Inspired Oxygen 32 SaO2/FiO2 Ratio 290 Oxygen Delivery Method Nasal Cannula,CPAP Oxygen Flow Rate 0 Narrative Exam Narrative: Alert and oriented. No apparent distress. Wearing his CPAP mask. Denies abdominal pain. Heart is regular rate and rhythm without murmur Lungs are clear to auscultation bilaterally Extremities have no ankle edema The right lower quadrant of the abdomen is no longer tender. Objective Labs 03/26/24 04:46 03/26/24 04:46 Labs: Laboratory Results - last 24 hr 03/26/24 04:46 WBC 9.4 RBC 5.08 Hgb 13.9 Hct 43.6 MCV 86.0 MCH 27.3 MCHC 31.8 RDW 15.6 H Plt Count 160 Neut % (Auto) 79.5 H Lymph % (Auto) 8.9 L [place] % (Auto) 8.3 Eos % (Auto) 2.8 Baso % (Auto) 0.5 Neut # (Auto) 7500 H Lymph # (Auto) 800 L [place] # (Auto) 800 Eos # (Auto) 300 Baso # (Auto) 100 Sodium 137 Potassium 3.5 Chloride 100 Carbon Dioxide 35 H BUN 10 Creatinine 0.83 Estimated GFR > 60 BUN/Creatinine Ratio 12.0 Glucose 103 H Calcium 8.4 PFSH Medical History Cellulitis Congestive heart failure (CHF) Hypertension Nonadherence to medication Obstructive sleep apnea Social History household members: none Smoking Status: Current every day smoker alcohol intake: never Discharge Plan Discharge Plan Patient Disposition: Home Provider Discharge Comment: Follow up with your PCP in 1-2 weeks. Follow up with Dr. Mercado in 6 weeks for a possible Colonoscopy. Discharge orders & Medications Prescriptions: New losartan 50 mg Tablet 100 mg PO DAILY Qty: 30 0RF Continued furosemide 80 mg tablet 80 mg PO DAILY aspirin 81 mg Tablet 81 mg PO DAILY albuterol sulfate 90 mcg/actuation HFA aerosol inhaler 1 puff INHALATION PRN PRN (Reason: Adequate Ventilation) Patient Comments: INHALE 2 PUFFS BY MOUTH INTO THE LUNGS EVERY 6 HOURS NEEDED FOR WHEEZING metoprolol tartrate 25 mg Tablet 25 mg PO BID potassium chloride 20 mEq Tablet Extended Release 20 meq PO DAILY atorvastatin 40 mg Tablet 40 mg PO BEDTIME tizanidine 4 mg Tablet 4 mg PO BEDTIME PRN (Reason: Spasms) tirzepatide 2.5 mg/0.5 mL Pen Injector 2.5 mg SUBCUT QWEEK Rx Instructions: for 4 weeks Discontinued losartan 25 mg tablet 25 mg PO DAILY Follow up/Referrals: Doctor Mejia MD [Primary Care Provider] - Diet/Activity/Treatments Diet: Regular Visit Report/Discharge Packet Stand Alone Forms: Patient Portal/API, Stroke Signs & Symptoms Discharge Data Primary Care Provider: Doctor Roberto Quality VTE Deep Vein Thrombosis/Pulmonary Embolism Present on Admission: No
== END 2024-03-26 17:26 | disposition home or self-care (01) | DRG 720 ==
LOC: ED 12:46 → AC 13:42 → ICU 17:42
PROVIDERS: Family Medicine; Admitting Provider Internal Medicine; Emergency Provider Emergency Medicine; Referring Provider Emergency Medicine; Visit Provider Internal Medicine
DX: A41.9 Sepsis, unspecified organism (principal); K35.30 Acute appendicitis with localized peritonitis, without perforation or gangrene; J96.21 Acute and chronic respiratory failure with hypoxia; E66.2 Morbid (severe) obesity with alveolar hypoventilation; B97.4 Respiratory syncytial virus as the cause of diseases classified elsewhere; R65.20 Severe sepsis without septic shock; J06.9 Acute upper respiratory infection, unspecified; E78.5 Hyperlipidemia, unspecified; I50.9 Heart failure, unspecified; R00.0 Tachycardia, unspecified; I11.0 Hypertensive heart disease with heart failure; F17.200 Nicotine dependence, unspecified, uncomplicated; Z68.43 Body mass index [BMI] 50.0-59.9, adult; Z99.81 Dependence on supplemental oxygen
CPT/HCPCS: 0241U; 36415; 71045; 74177; 80048; 80053; 82550; 83605; 83880; 84484; 85025; 85610; 87797; 93005; 93010; 94640; 94660; 94762; 96361; 96365; 96367; 96375; 99285; 99291; J0134; J1171; J1644; J2405; J2543; J2765; J7613; Q9967